=== PATIENT | female | born 1950 | race African-American/Black ===

== ENCOUNTER → 2023-04-10 | Emergency (ER) | payer OTHER ==
[~2023-04-10] MED LIST: DIAZEPAM 2 MG TABLET ONE
--- OUTSIDE RECORDS SUMMARY | 2023-04-10 11:27 | XMS REPORT | Continuity of Care Document ---
Author Name Unknown Address [address] [place] [address] [employer]connect Address [address] [place] [address] Care Team Providers Care Lead Java [email or web address] Developer Name Role Phone Unavailable Unavailable Unavailable
--- NOTE | 2023-04-10 12:39 | RAD REPORT ---
EXAM DESCRIPTION: Brittani Single View04/10/2023 12:14 pm CLINICAL HISTORY: Numbness COMPARISON: 2012 FINDINGS: Calcified granulomas within the lungs. The lungs appear clear of acute infiltrate. The heart is normal size IMPRESSION: No acute abnormalities displayed
--- NOTE | 2023-04-10 12:39 | RAD REPORT ---
EXAM DESCRIPTION: CT - Head Brain Wo Cont - 04/10/2023 12:11 pm CLINICAL HISTORY: Numbness COMPARISON: none TECHNIQUE: Computed axial tomography of the head was obtained. IV contrast was not requested. All CT scans are performed using dose optimization technique as appropriate and may include automated exposure control or mA/KV adjustment according to patient size. FINDINGS: 6.7 x 1.7 centimeter calcification is present along the falx. An intracranial bleed is not seen The ventricles are normal in caliber No significant hypodense areas within the brain visualized No extra-axial fluid collection is noted. Right maxillary sinusitis IMPRESSION: 6.7 centimeter calcification along the falx. This could be idiopathic. Another considera tion is that this represents en plaque meningioma This can be further evaluated with MRI
[2023-04-10 14:03] LABS: Absolute Lymphocytes (CBC) 2.2 K/uL (0.7-4.9); Hematocrit 34.1 % (36.0-45.0); Lymphocytes % 37.7 % (15.3-44.8); MCV 91.1 fL (80-100); MPV 8.3 fL (7.6-11.3); Platelets 268 thou/uL (152-406); RBC Red Blood Cell Count 3.74 M/uL (3.86-4.86)
[2023-04-10 14:06] LABS: Troponin High Sensitivity 7.3 pg/mL (<58.9)
--- NOTE | 2023-04-10 15:47 | RAD REPORT ---
EXAM DESCRIPTION: MRI - Brain Wo Cont - 04/10/2023 3:39 pm CLINICAL HISTORY: Tingling and pain on left side of body COMPARISON: Noncontrast head CT of the same day TECHNIQUE: Multiplanar multisequence MRI of the brain performed without IV contrast. FINDINGS: Dense ossification along the bowel, results in some artifactual signal increase along the falx on the FLAIR sequence. No evidence of acute infarct or other diffusion signal abnormality. No evidence of acute intracranial hemorrhage or abnormal extra-axial fluid collections. Ventricular caliber within normal for age. Midline structures are unremarkable. Scattered subcortical and deep white matter T2/FLAIR hyperintensities, nonspecific, but suggestive of chronic small vessel ischemic changes. No mass effect or midline shift. Major vascular flow voids are preserved. Mastoid air cells are well aerated. Complete opacification right maxillary and right anterior ethmoid al air cells. IMPRESSION: No acute intracranial process. No evidence of ventriculomegaly or mass effect. Complete opacification of the right maxillary and right anterior ethmoidal air cells, suggestive of m iddle meatus obstruction pattern. Please correlate clinically for evidence of acute sinusitis
--- NOTE | 2023-04-10 16:08 | ER ---
Nurse's Notes [facility] Name: Yamile Daugherty Age: 73 yrs Sex: Female : 1950 Arrival Date: 04/10/2023 Time: 11:23 Bed 12 Private MD: Diagnosis: Paresthesia of skin-Right hand/fingertips;Pain in left shoulder;Pain in left knee Presentation: 04/10 11:42 Chief complaint: Tingling in left hand and shoulder, tingling in outer left knee, hb cough, congestion, intermittent headaches, and body aches x 4 days. VAN negative. On amoxicillin for sinus infection. Coronavirus screen: Client presents with at least one sign or symptom that may indicate coronavirus-19. Standard/surgical mask placed on the client. Provider contacted for isolation considerations. Ebola Screen: No symptoms or risks identified at this time. Initial Sepsis Screen: Does the patient meet any 2 criteria? No. Patient's initial sepsis screen is negative. Does the patient have a suspected source of infection? No. Patient's initial sepsis screen is negative. Risk Assessment: Do you want to hurt yourself or someone else? Patient reports no desire to harm self or others. Onset of symptoms was April 07, 2023. 11:42 Method Of Arrival: Ambulatory hb 11:42 Acuity: ALESIA 3 hb Historical: - Allergies: 11:45 No Known Allergies; hb - Home Meds: 11:45 carvedilol 25 mg oral tablet 2 times per day [Active]; irbesartan-hydrochlorothiazide hb 300-12.5 mg oral tablet daily [Active]; amlodipine 10 mg tablet daily [Active]; atorvastatin 20 mg oral tablet daily [Active]; - PMHx: 11:45 Hypertension; Irregular Heartbeat; hb - PSHx: 11:45 Wrist - Left; hb - Immunization history:: Adult Immunizations up to date. - Social history:: Smoking status: Patient denies any tobacco usage or history of. Screenin:58 [facility] ED Fall Risk Assessment (Adult) History of falling in the last 3 months, cp4 including since admission No falls in past 3 months (0 pts) Confusion or Disorientation No (0 pts) Intoxicated or Sedated No (0 pts) Impaired Gait No (0 pts) Mobility Assist Device Used No (0 pt) Altered Elimination No (0 pt) Score/Fall Risk Level 0 - 2 = Low Risk Oriented to surroundings, Maintained a safe environment, Educated pt \T\ family on fall prevention, incl call for assistance when getting out of bed, Assessed \T\ reinforced patient's understanding of fall precautions, Hourly rounding (assess needs \T\ fall precautionary measures) done. Abuse screen: Denies threats or abuse. Nutritional screening: No deficits noted. Tuberculosis screening: No symptoms or risk factors identified. Assessment: 13:58 General: Appears in no apparent distress. Behavior is calm, cooperative, appropriate cp4 for age. Pain: Denies pain. Vital Signs: 11:42 BP 169 / 73; Pulse 71; Resp 16; Temp 97.7; Pulse Ox 100% on R/A; Weight 72.57 kg; hb Height 5 ft. 9 in. ; Pain 6/10; 16:30 BP 132 / 74; Pulse 60; Resp 16; Pulse Ox 100% ; cp4 11:42 Body Mass Index 23.63 (72.57 kg, 175.26 cm) hb 11:42 Pain Scale: Adult hb ED Course: 11:28 Patient arrived in ED. im 11:38 Armand Delaney MD is Attending Physician. kdr 11:45 Triage completed. hb 11:49 Arm band placed on. hb 12:13 CT Head Brain wo Cont In Process Unspecified. EDMS 12:15 XRAY Chest (1 view) In Process Unspecified. EDMS 12:20 Patient taken to lobby, via wheelchair, Patient moved back from radiology. md2 13:04 Caty Donald is Primary Nurse. cp4 13:27 Basic Metabolic Panel Sent. cp4 13:27 CBC with Diff Sent. cp4 13:27 NT PRO-BNP Sent. cp4 13:27 Troponin HS Sent. cp4 13:58 Placed in gown. Bed in low position. Call light in reach. Side rails up X 1. cp4 13:58 No provider procedures requiring assistance completed. Inserted saline lock: 20 gauge cp4 in right antecubital area, using aseptic technique. 15:41 MRI - Brain Wo Cont In Process Unspecified. EDMS 16:30 Provided Education on: paresthesia and musculoskeletal pain. . cp4 16:30 intact, bleeding controlled, No redness/swelling at site. Pressure dressing applied. cp4 Administered Medications: 15:55 Not Given (Patient Refused): diazepam2 mg PO once cp4 Medication: 13:58 VIS not applicable for this client. cp4 Outcome: 16:08 Discharge ordered by . kdr 16:30 Discharged to home ambulatory, cp4 16:30 Condition: stable 16:30 Discharge instructions given to patient, Instructed on discharge instructions, follow up and referral plans. Demonstrated understanding of instructions, follow-up care, 16:32 Patient left the ED. cp4 Signatures: Dispatcher [employer] EDMS Armand Delaney MD MD kdr Coby Iqbal, RN RN Herlinda Arnett md2 Rosemary James Christina cp4 Corrections: (The following items were deleted from the chart) 11:49 11:42 Chief complaint: Tingling in left hand and shoulder, tingling in outer left knee, hb cough, congestion, intermittent headaches, and body aches x 4 days. VAN negative. hb
--- NOTE | 2023-04-10 16:08 | EDPHYS ---
Physician Documentation [facility] Name: Yamile Daugherty Age: 73 yrs Sex: Female : 1950 Arrival Date: 04/10/2023 Time: 11:23 Bed 12 Private MD: ED Physician Armand Delaney HPI: 04/10 20:44 This 73 yrs old Black Female presents to ER via Ambulatory with complaints of Numbness kdr - left side. 20:44 . Patient presents with tingling in her left hand and discomfort and paresthesias in kdr her left shoulder and left lateral knee. She also has generalized bodyaches which have all been going on for about the past 4 days. Patient is currently on amoxicillin for sinus infection. Onset: The symptoms/episode began/occurred gradually, 4 day(s) ago. Severity of symptoms: At their worst the symptoms were mild in the emergency department the symptoms are unchanged. The patient has not experienced similar symptoms in the past. The patient has been recently seen by a physician: the patient's primary care provider. Historical: - Allergies: 11:45 No Known Allergies; hb - Home Meds: 11:45 carvedilol 25 mg oral tablet 2 times per day [Active]; irbesartan-hydrochlorothiazide hb 300-12.5 mg oral tablet daily [Active]; amlodipine 10 mg tablet daily [Active]; atorvastatin 20 mg oral tablet daily [Active]; - PMHx: 11:45 Hypertension; Irregular Heartbeat; hb - PSHx: 11:45 Wrist - Left; hb - Immunization history:: Adult Immunizations up to date. - Social history:: Smoking status: Patient denies any tobacco usage or history of. ROS: 20:44 Constitutional: Negative for fever, chills, and weight loss, Eyes: Negative for injury, kdr pain, redness, and discharge, Neck: Negative for injury, pain, and swelling, Cardiovascular: Negative for chest pain, palpitations, and edema, Respiratory: Negative for shortness of breath, cough, wheezing, and pleuritic chest pain, Abdomen/GI: Negative for abdominal pain, nausea, vomiting, diarrhea, and constipation, Back: Negative for injury and pain, : Negative for injury, bleeding, discharge, and swelling, MS/Extremity: Negative for injury and deformity, Skin: Negative for injury, rash, and discoloration, Psych: Negative for depression, anxiety, suicide ideation, homicidal ideation, and hallucinations, Allergy/Immunology: Negative for hives, rash, and allergies, Endocrine: Negative for neck swelling, polydipsia, polyuria, polyphagia, and marked weight changes, Hematologic/Lymphatic: Negative for swollen nodes, abnormal bleeding, and unusual bruising, 20:44 Neuro: Positive for numbness, tingling, Paresthesia to her left fingertips and left leg around the knee, Exam: 20:44 Constitutional: This is a well developed, well nourished patient who is awake, alert, kdr and in no acute distress. Head/Face: Normocephalic, atraumatic. Eyes: Pupils equal round and reactive to light, extra-ocular motions intact. Lids and lashes normal. Conjunctiva and sclera are non-icteric and not injected. Cornea within normal limits. Periorbital areas with no swelling, redness, or edema. Neck: Trachea midline, no thyromegaly or masses palpated, and no cervical lymphadenopathy. Supple, full range of motion without nuchal rigidity, or vertebral point tenderness. No Meningismus. Chest/axilla: Normal chest wall appearance and motion. Nontender with no deformity. No lesions are appreciated. Cardiovascular: Regular rate and rhythm with a normal S1 and S2. No gallops, murmurs, or rubs. Normal PMI, no JVD. No pulse deficits. Respiratory: Lungs have equal breath sounds bilaterally, clear to auscultation and percussion. No rales, rhonchi or wheezes noted. No increased work of breathing, no retractions or nasal flaring. Abdomen/GI: Soft, non-tender, with normal bowel sounds. No distension or tympany. No guarding or rebound. No evidence of tenderness throughout. Back: No spinal tenderness. No costovertebral tenderness. Full range of motion. Skin: Warm, dry with normal turgor. Normal color with no rashes, no lesions, and no evidence of cellulitis. 20:44 MS/ Extremity: Pulses equal, no cyanosis. Neurovascular intact. Full, normal range of motion. Psych: Awake, alert, with orientation to person, place and time. Behavior, mood, and affect are within normal limits. 20:44 Neuro: Orientation: is normal, Mentation: is normal, Memory: is normal, Cranial nerves: grossly normal, Sensation: no obvious gross deficits, numbness, that is mild, of the left hand, tingling, that is mild, of the left hand, left arm and left leg, Vital Signs: 11:42 BP 169 / 73; Pulse 71; Resp 16; Temp 97.7; Pulse Ox 100% on R/A; Weight 72.57 kg; hb Height 5 ft. 9 in. ; Pain 6/10; 16:30 BP 132 / 74; Pulse 60; Resp 16; Pulse Ox 100% ; cp4 11:42 Body Mass Index 23.63 (72.57 kg, 175.26 cm) hb 11:42 Pain Scale: Adult hb MDM: 16:08 Patient medically screened. kdr 20:44 Data reviewed: vital signs, nurses notes, lab test result(s), radiologic studies. [facility] 04/10 11:51 Order name: Basic Metabolic Panel; Complete Time: 14:43 [facility] 04/10 11:51 Order name: CBC with Diff; Complete Time: 14:43 kdr 04/10 11:51 Order name: NT PRO-BNP; Complete Time: 14:43 kdr 04/10 11:51 Order name: Troponin HS; Complete Time: 14:43 kdr 04/10 11:51 Order name: CT Head Brain wo Cont; Complete Time: 14:43 kdr 04/10 11:51 Order name: XRAY Chest (1 view); Complete Time: 14:43 kdr 04/10 11:51 Order name: MRI - Brain Wo Cont; Complete Time: 15:52 kdr 04/10 11:51 Order name: EKG; Complete Time: 11:51 kdr 04/10 11:51 Order name: Cardiac monitoring; Complete Time: 13:27 kdr 04/10 11:51 Order name: EKG - Nurse/Tech; Complete Time: 13:36 kdr 04/10 11:51 Order name: IV Saline Lock; Complete Time: 13:27 kdr 04/10 11:51 Order name: Labs collected and sent; Complete Time: 13:27 kdr 04/10 11:51 Order name: O2 Per Protocol; Complete Time: 13:27 kdr 04/10 11:51 Order name: O2 Sat Monitoring; Complete Time: 13:27 kdr Administered Medications: 15:55 Not Given (Patient Refused): diazepam2 mg PO once cp4 Disposition Summary: 04/10/23 16:08 Discharge Ordered Notes: Location: Home kdr Problem: new kdr Symptoms: are unchanged kdr Condition: Stable kdr Diagnosis - Paresthesia of skin - Right hand/fingertips kdr - Pain in left shoulder kdr - Pain in left knee kdr Followup: kdr - With: Private Physician - When: 2 - 3 days - Reason: If symptoms return, Further diagnostic work-up, Recheck today's complaints, Continuance of care, Re-evaluation by your physician Discharge Instructions: - Discharge Summary Sheet kdr - Musculoskeletal Pain kdr - Shoulder Pain, [id number] kdr - Paresthesia, [id number] kdr Forms: - Medication Reconciliation Form kdr - Thank You Letter kdr - Patient Portal Instructions kdr - Leadership Thank You Letter kdr Signatures: Dispatcher [employer] Armand Comer MD MD kdr Coby Iqbal, GLENROY RN Caty Reynolds cp4
[2023-04-10 18:21] VITALS: BP 132/74; TEMP 97.7; O2SAT 100
== END ==
LOC: ER 11:23
DX: R20.2 Paresthesia of skin (principal); M25.512 Pain in left shoulder; M25.562 Pain in left knee; I10 Essential (primary) hypertension
CPT/HCPCS: 36415; 70450; 70551; 71045; 80048; 83880; 84484; 85025; 99284

== ENCOUNTER 2023-07-24 20:21 | Observation (INO) | payer BC, OTHER ==
--- OUTSIDE RECORDS SUMMARY | 2023-07-24 20:26 | XMS REPORT | Continuity of Care Document ---
Author Name Unknown Address [address] [facility] [address] [place] [address] [facility] thconnect Address [address] 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 Role Phone Sheng Gil Primary Care Physician [phone] Venus TIM, Gracia Choe Attending Clinician Unavail able LUCINA PINEDA Attending Clinician Unavailable Shari Levy DO Attending Clinician [phone] Mark Dixon MD Attending Clinician [phone] Lucina Pineda MD Attending Clinician [phone] AMBROSIO BOLDEN Attending Clinician Unavailable Matt TIM, [place] Attending Clinician Unavailable Ambrosio Bolden MD Attending Clinician [phone] Jade Larson Attending Clinician [phone] Kaushik Rosen MD Attending Clinician [phone] CHRIS ACOSTA Attending Clinician Unavailable Chris Acosta MD Attending Clinician [phone] RAISSA OLMOS Attending Clinician Unavailable Raissa Olmos MD Attending Clinician [phone] IGNACIO ELDRIDGE Attending Clinician UnavailIgnacio Estes MD Attending Clinician [phone] MARIN TERRY Attending Clinician Unavailable Marin Terry DO Attending Clinician [phone] KOBE TOUSSAINT Attending Clinician Unavailab Kobe Lovell MD Attending Clinician [phone] YING CHANG Attending Clinician Unavailable Vaccine, [facility] Attending Clinician Unavailable Yony Torres DO Attending Clinician YONY TORRES Attending Clinician Unavail able GERALD MCCULLOUGH Attending Clinician Unavailable UNKNOWN, ATTENDING Attending Clinician Unavailab NICK Manrique Attending Clinician Unavailabl e Vaccine, Ang [facility] Attending Clinician Unavailab tessa Plascencia ENGINEER CHIEF Alejandro Attending Clinician [phone] ALEJANDRO PLASCENCIA Attending Clinician Unavailable Doctor Unassigned, [place] Attending Clinician U SHARI Weiss Attending Clinician Unavailab ELOISA Santos Attending Clinician Unavailable JULIAN BARRETT Attending Clinician Unavailable LUCINA PINEDA Admitting Clinician Unavailable Lucina Pineda MD Admitting Clinician [phone] KAUSHIK ROSEN Admitting Clinician Unavailable CRHIS ACOSTA Admitting Clinician Unavailable MORIGNACIO MANSFIELD Admitting Clinician Unavaila SHARI Harvey Admitting Clinician Unavailab JULIAN Mai Admitting Clinician Unavailable Payers Payer Name Policy Type Policy Number Effective Date Expirati on Date Source [facility] [id number] 2021 00:00:00 [employer] IN[employer] [id number] 2018 00:00:00 2020 00:00:00 Problems Condition Name Condition Details Condition Category Status Onset Date Resolution Date Last Treatment Date Treating Clinician Comments Source Other pulmonary embolism without acute cor pulmonale Other pulmonary embolism without acute cor pulmonale Disease Active 07-19 00:00: 00 [facility] Chest pain, unspecifie d type Chest pain, unspecifie d type Disease Active 07-13 00:00: 00 [facility] Coronary artery calcificat ion Coronary artery calcificat ion Disease Active 07-13 00:00: 00 [facility] Primary hypertensi on Primary hypertensi on Disease Active 07-13 00:00: 00 [facility] Other hyperlipid emia Other hyperlipid emia Disease Active 07-13 00:00: 00 [facility] No known active problems No known active problems Disease [facility] Allergies, Adverse Reactions, Alerts Allergy Name Allergy Type Status Severity Reaction(s) Onset Date Inactive Date Treating Clinician Comments Source NO KNOWN ALLERGIE S Drug Class Active [facility] Social History Social Habit Start Date Stop Date Quantity Comments Source Gender identity [facility] of Social function 2023-07-20 00:00:00 2023-07-20 00:00:00 [facility] Alcohol intake 2023-07-20 00:00:00 2023-07-20 00:00:00 Ex-drinker (finding) [facility] Tobacco use and exposure 2023-07-14 00:00:00 2023-07-14 00:00:00 Smokeless tobacco non-user [facility] Exposure to SARS-CoV-2 (event) 2021-12-25 00:00:00 2022-01-04 09:54:00 Not sure [facility] Sex Assigned At 1950 00:00:00 1950 00:00:00 [facility] Smoking Status Start Date Stop Date Source Never smoked tobacco [facility] Medications Ordered Medication Name Filled Medication Name Start Date Stop Date Current Medication? Ordering Clinician Indication Dosage Frequency Signature (SIG) Comments Components Source apixaban (ELIQUIS) tablet 5 mg 07-23 01:00: 00 Yes 1291 5mg 5 mg, Oral, BID, First dose on Evelyn 07/23/23 at 1999, Until Discontinu ed, Routine
Indicatio ns: DVT/PE [facility] apixaban 5 mg tablet 07-22 00:00: 00 08-13 04:59 :00 Yes 1291 5mg Take 1 tablet by mouth in the morning and 1 tablet in the evening. Do all this for 21 days. Indication s: a clot in the lung [facility] KCL (KLOR-CON M20) tablet 20 mEq 07-21 14:00: 00 Yes 20meq 20 mEq, Oral, DAILY, First dose on Thu07/22/23 at 0900, Until Discontinu ed, [facility] ([facility] M20[facility] tablet 40 mEq 07-21 02:30: 00 07-21 02:02 :00 No 40meq 40 mEq, Oral, ONCE, 1 dose, On Thu07/21/23 at 2130, Routine [facility] nitroglycer in 0.3 mg sublingual tablet 07-21 00:00: [id number] 1 tablet under the tongue every 5 (five) minutes as needed for Chest pain (CP greater than 5 minutes up to 3 doses then call 911). [facility] hydrOXYzine 25 mg tablet 07-21 00:00: 00 07-27 04:59 :00 Yes [id number] 25mg Take 1 tablet by mouth every 8 (eight) hours as needed for Itching for up to 5 days. [facility] levoFLOXaci n 500 mg tablet 07-21 00:00: 00 07-24 04:59 :00 Yes [id number] 500mg Take 1 tablet by mouth every 24 (twenty-fo ur) hours for 2 days. [facility] hydroCHLORO thiazide (ESIDRIX) tablet 12.5 mg 07-20 14:00: 00 Yes 12.5mg 12.5 mg, Oral, DAILY, First dose on Thu07/21/23 at 0900, Until Discontinu ed, Routine [facility] losartan (COZAAR) tablet 100 mg 07-20 14:00: 00 Yes 100mg 100 mg, Oral, DAILY, First dose on Thu07/21/23 at 0900, Until Discontinu ed, Routine [facility] amLODIPine (NORVASC) tablet 10 mg 07-20 14:00: 00 Yes 10mg 10 mg, Oral, DAILY, First dose on Thu07/21/23 at 0900, Until Discontinu ed, [facility] atorvast[facility] (LIPITOR) tablet 20 mg 07-20 02:00: 00 Yes 20mg 20 mg, Oral, QHS, First dose on Thu07/20/23 at 2100, Until Discontinu ed, Routine [facility] apixaban (ELIQUIS) tablet 10 mg 07-20 01:00: 00 07-22 13:04 :00 No 1291 10mg 10 mg, Oral, BID, 6 doses, First dose on Thu07/20/23 at 2000, Last dose on Thu07/23/23 at 0800, Routine
Indicatio ns: DVT/PE [facility] carvediloL (COREG) tablet 6.25 mg 07-19 22:00: 00 Yes 6.25mg 6.25 mg, Oral, BID MEALS, First dose on Thu07/20/23 at 1700, Until Discontinu ed, Routine [facility] cefTRIAXone (ROCEPHIN) 1,000 mg in NaCl 0.9% (NS) 100 mL MINI-BAG 07-19 22:00: 00 07-26 21:59 :00 Yes 1000mg 1,000 mg, IV Piggyback, Q24H ABX, 7 doses, First dose on Thu07/20/23 at 1700, Last dose on Thu07/26/23 at 1700, Administer over 30 Minutes, 100 mL
Reas on for Anti-Infec tive: Documented Infection< br>Documen jaclyn Infection Site: Respirator y
Durat ion of Therapy: 7 days [facility] azithromyci n (ZITHROMAX) tablet 500 mg 07-19 15:45: 00 07-21 13:35 :00 No 500mg 500 mg, Oral, DAILY, 3 doses, First dose on Thu07/20/23 at 1045, Last dose on Thu07/22/23 at 0900, Routine
Reason for Anti-Infec tive: Documented Infection< br>Documen jaclyn Infection Site: Respirator y
Durat ion of Therapy: Other (see Comments) [facility] ondansetron (ZOFRAN (PF)) injection 4 mg 07-19 15:33: 32 Yes 4mg 4 mg, Slow IV Push, Q6HPRN, Starting on Thu07/20/23 at 1033, Until Discontinu ed, Routine, Nausea and Vomiting (N/V) [facility] acetaminoph en (TYLENOL) tablet 650 mg 07-19 15:33: 22 Yes 650mg 650 mg, Oral, Q6HPRN, Starting on Thu07/20/23 at 1033, Until Discontinu ed, Routine, Pain (scale 1-3), Temp > 38 C [facility] vancomycin (VANCOCIN) 1,000 mg in NaCl 0.9% (NS) 250 mL VIAL-MATE IV piggyback 07-19 14:15: 00 07-19 15:18 :00 No 1000mg 1,000 mg, IV Piggyback, ONCE, 1 dose, On Thu07/20/23 at 0915, Administer over 60 Minutes, 250 mL
Reas on for Anti-Infec tive: Empiric Therapy for Suspected Infection< br>Empiric Therapy Site: Respirator y
Durat ion of therapy: Once (ED) [facility] aspirin chewable tablet 81 mg 07-19 14:00: 00 07-21 00:00 :00 Yes 81mg 81 mg, Oral, DAILY, First dose on Thu07/20/23 at 0900, Until Discontinu ed, Routine [facility] piperacilli n-tazobacta m (ZOSYN) 3.375 g in NaCl 0.9% (NS) 100 mL MINI-BAG 07-19 13:30: 00 07-19 14:21 :00 No 3.375g 3.375 g, IV Piggyback, ONCE, 1 dose, On Thu07/20/23 at 0830, Administer over 30 Minutes, 100 mL
Reas on for Anti-Infec tive: Empiric Therapy for Suspected Infection< br>Empiric Therapy Site: Respirator y
Durat ion of therapy: Once (ED) [facility] iopamidol (ISOVUE 370-500 mL) injection 80 mL 07-19 13:15: 00 07-19 13:15 :00 No [id number] 80mL 80 mL, Intravenou s, ONCE, 1 dose, On Thu07/20/23 at 0815, Routine [facility] nitroglycer in (NITROL) 2 % ointment 0.5 Inch 07-19 13:00: 00 07-19 12:59 :00 No .5[in_u s] 0.5 Inch, Transderma l (Apply To Skin), ONCE, 1 dose, On Thu07/20/23 at 0800, JAYJAY [facility] NaCl 0.9% (NS) bolus infusion 1,000 mL 07-19 13:00: 00 07-19 13:02 :00 No 1000mL at 999 mL/hr, 1,000 mL, IV Infusion, ONCE, 1 dose, On Thu07/20/23 at 0800, STAT [facility] irbesartan- hydrochloro thiazide 300-12.5 mg per tablet 07-19 10:35: 40 Yes 1{tbl} Take 1 tablet by mouth in the morning. [facility] atorvastati n 20 mg tablet 07-19 10:35: 40 Yes 20mg Take 1 tablet by mouth at bedtime. [facility] apixaban (ELIQUIS) tablet 10 mg 07-15 01:00: 00 07-22 00:59 :00 Yes 10mg [Order 1 Start] Name: apixaban (ELIQUIS) tablet 10 mg Signed Summary: 10 mg, Oral, BID, 14 doses, First dose on Thu07/15/23 at 2000, Last dose on Thu07/22/23 at 0800, Routine
Indicatio ns: DVT/PE [Order 1 End] [Order 2 Start] Name: apixaban (ELIQUIS) tablet 5 mg Signed Summary: 5 mg, Oral, BID, First dose on Evelyn 07/23/23 at 0800, Until Discontinu ed, Routine
Indicatio ns: DVT/PE [Order 2 End] [facility] apixaban 5 mg tablet 07-15 00:00: 00 07-21 00:00 :00 No 1291 10mg Take 2 tablets by mouth in the morning and 2 tablets in the evening. Do all this for 7 days. Indication s: a clot in the lung [facility] irbesartan- hydrochloro thiazide 300-12.5 mg per tablet 07-14 21:09: 14 Yes 1{tbl} Take 1 tablet by mouth in the morning. [facility] atorvastati n 20 mg tablet 07-14 21:09: 14 Yes 20mg Take 1 tablet by mouth at bedtime. [facility] amoxicillin 500 mg capsule 07-14 21:09: 12 07-14 00:00 :00 No 500mg Take 1 capsule by mouth in the morning and 1 capsule at noon and 1 capsule in the evening. [facility] aspirin 325 mg tablet 07-14 13:57: 46 07-14 00:00 :00 No 325mg Take 1 tablet by mouth in the morning. [facility] atorvastati n (LIPITOR) tablet 20 mg 07-14 02:00: 00 Yes 20mg 20 mg, Oral, QHS, First dose on Thu07/14/23 at 2100, Until Discontinu ed, Routine [facility] aspirin EC tablet 81 mg 07-14 00:30: 00 Yes 81mg 81 mg, Oral, DAILY, First dose on Thu07/14/23 at 1930, Until Discontinu ed, Routine [facility] iopamidol (ISOVUE 370-500 mL) injection 80 mL 07-13 21:15: 00 07-13 21:15 :00 No [id number] 80mL 80 mL, Intravenou s, ONCE, 1 dose, On Thu07/14/23 at 1615, Routine [facility] magnesium sulfate in water 2 gram/50 mL (4 %) infusion 2 g 07-13 17:30: 00 07-13 18:34 :00 No 2g 2 g, IV Piggyback, Administer over 60 Minutes, ONCE, 1 dose, On Thu07/14/23 at 1230, Routine [facility] amLODIPine (NORVASC) tablet 10 mg 07-13 14:00: 00 Yes 10mg 10 mg, Oral, DAILY, First dose on Thu07/14/23 at 0900, Until Discontinu ed, Routine [facility] KCL (KLOR-CON M20) tablet 40 mEq 07-13 13:15: 00 07-13 13:48 :00 No 40meq 40 mEq, Oral, ONCE, 1 dose, On Thu07/14/23 at 0815, Routine [facility] hydrALAZINE (APRESOLINE ) tablet 10 mg 07-13 13:00: 00 Yes 10mg 10 mg, Oral, BID, First dose on Thu07/14/23 at 0800, Until Discontinu ed, Routine [facility] carvediloL (COREG) tablet 25 mg 07-13 13:00: 00 Yes 25mg 25 mg, Oral, BID, First dose on Thu07/14/23 at 0800, Until Discontinu ed, Routine [facility] nitroglycer in (NITROSTAT) sublingual tablet 0.4 mg 07-13 05:25: 23 Yes .4mg 0.4 mg, Sublingual , Q5MIN PRN, Starting on Thu07/14/23 at 0025, Until Discontinu ed, Routine, Chest pain [facility] traMADoL (ULTRAM) tablet 50 mg 07-13 05:25: 06 07-15 05:24 :06 Yes 50mg 50 mg, Oral, Q8HPRN, Starting on Thu07/14/23 at 0025, Until Evelyn 07/16/23 at 0024, Routine, Pain (scale 4-6) [facility] acetaminoph en (TYLENOL) tablet 650 mg 07-13 05:25: 03 Yes 650mg 650 mg, Oral, Q6HPRN, Starting on Thu07/14/23 at 0025, Until Discontinu ed, Routine, Pain (scale 1-3) [facility] montelukast 10 mg tablet 07-13 01:23: 29 07-13 00:00 :00 No 10mg Take 10 mg by mouth. [facility] loratadine (CLARITIN ORAL) 07-13 01:23: 14 07-13 00:00 :00 No Take by mouth. [facility] ergocalcife rol, vitamin D2, (VITAMIN D ORAL) 07-13 01:22: 19 07-13 00:00 :00 No Take by mouth. [facility] sodium chloride (NS) injection 5 mL 07-13 00:58: 00 Yes 5mL 5 mL, Intravenou s, PRN, Starting on Thu07/13/23 at 1958, Until Discontinu ed, Routine, IV line flushing [facility] NaCl 0.9% (NS) bolus infusion 1,000 mL 06-28 02:00: 00 06-28 01:59 :00 No 1000mL at 999 mL/hr, 1,000 mL, IV Infusion, ONCE, 1 dose, On Thu06/28/23 at 2100, STAT [facility] enalaprilat (VASOTEC I.V.) injection 1.25 mg 06-17 03:00: 00 06-17 03:07 :00 No 1.25mg 1.25 mg, Slow IV Push, ONCE, 1 dose, On Thu06/16/23 at 2100, STAT [facility] hydrALAZINE 10 mg tablet 06-16 00:00: 00 Yes [id number] 10mg Take 1 tablet by mouth in the morning and 1 tablet in the evening. [facility] naproxen sodium (ANAPROX DS) 550 mg tablet 2022-04 00:00: 00 07-13 00:00 :00 No [id number] 550mg Take 1 tablet by mouth in the morning and 1 tablet in the evening. Take with meals. [facility] chlorphenir amine 4 mg tablet 2022-04 00:00: 00 07-13 00:00 :00 No [id number] 4mg Take 1 tablet by mouth every 6 (six) hours as needed for Allergies or Runny nose. [facility] benzonatate 100 mg capsule 2022-04 00:00: 00 07-13 00:00 :00 No [id number] 100mg Take 1 capsule by mouth 3 (three) times daily as needed for Cough. [facility] alum-mag hydroxide-s imeth (MAALOX PLUS / MAG-AL PLUS) 200-200-20 mg/5 mL suspension 30 mL 11-29 17:30: 00 11-29 17:34 :00 No 30mL 30 mL, Oral, ONCE, 1 dose, On 11/29/22 at 1230, JAYJAY [facility] sucralfate (CARAFATE) 100 mg/mL suspension 1,000 mg 11-29 17:21: 00 11-29 17:34 :00 No 1g 1,000 mg (1 g), Oral, ONCE, 1 dose, On 11/29/22 at 1230, JAYJAY [facility] loratadine (CLARITIN ORAL) 11-29 13:19: 35 Yes Take by mouth. [facility] atorvastati n 20 mg tablet 10-08 02:46: 00 Yes 20mg Take 20 mg by mouth at bedtime. [facility] montelukast 10 mg tablet 10-08 02:46: 00 Yes 10mg Take 10 mg by mouth. [facility] magnesium sulfate in water 2 gram/50 mL (4 %) infusion 2 g 10-06 19:45: 00 10-06 19:18 :00 No 2g 2 g, IV Piggyback, Administer over 60 Minutes, ONCE, 1 dose, On 10/06/21 at 1445, Routine [facility] atorvastati n 20 mg tablet 10-06 12:37: 45 Yes 20mg Take 20 mg by mouth at bedtime. [facility] montelukast 10 mg tablet 10-06 12:37: 45 Yes 10mg Take 10 mg by mouth. [facility] aspirin 325 mg tablet 2018-04 09:49: 26 Yes 325mg Take 325 mg by mouth daily. [facility] ergocalcife rol, vitamin D2, (VITAMIN D ORAL) 2018-04 09:49: 26 Yes Take by mouth. [facility] irbesartan- hydrochloro thiazide 300-12.5 mg per tablet 2018-04 09:49: 26 Yes 1{tbl} Take 1 tablet by mouth daily. [facility] DULoxetine 60 mg capsule 2018-04 00:00: 00 07-13 00:00 :00 No TAKE 1 CAPSULE BY MOUTH EVERY DAY WITH FOOD [facility] carvedilol 25 mg tablet 2018-04 00:00: 00 Yes 25mg Take 1 tablet by mouth in the morning and 1 tablet in the evening. [facility] amLODIPine 10 mg tablet 2018-04 00:00: 00 Yes 10mg Take 1 tablet by mouth in the morning. [facility] Immunizations Ordered Immunization Name Filled Immunization Name Date Status Comments Source SARS-COV-2 COVID-19 PFIZER HAILE-SUCROSE VACCINE ([facility] TOP) 2022-03-27 00:00:00 Completed [facility] SARS-COV-2 COVID-19 PFIZER HAILE-SUCROSE VACCINE (BRONSON TOP) 2022-03-27 00:00:00 Completed [facility] SARS-COV-2 COVID-19 PFIZER HAILE-SUCROSE VACCINE (BRONSON TOP) 2022-01-04 00:00:00 Completed [facility] SARS-COV-2 COVID-19 PFIZER HAILE-SUCROSE VACCINE (BRONSON TOP) 2022-01-04 00:00:00 Completed [facility] SARS-COV-2 COVID-19 PFIZER HAILE-SUCROSE VACCINE (BRONSON TOP) 2022-01-04 00:00:00 Completed [facility] SARS-COV-2 COVID-19 PFIZER HAILE-SUCROSE VACCINE (BRONSON TOP) Unknown Completed [facility] SARS-COV-2 COVID-19 PFIZER HAILE-SUCROSE VACCINE (BRONSON TOP) Unknown Completed [facility] SARS-COV-2 COVID-19 PFIZER HAILE-SUCROSE VACCINE (BRONSON TOP) Unknown Completed [facility] SARS-COV-2 COVID-19 PFIZER HAILE-SUCROSE VACCINE (BRONSON TOP) Unknown Completed [facility] SARS-COV-2 COVID-19 PFIZER HAILE-SUCROSE VACCINE (BRONSON TOP) Unknown Completed [facility] SARS-COV-2 COVID-19 PFIZER HAILE-SUCROSE VACCINE (BRONSON TOP) Unknown Completed [facility] SARS-COV-2 COVID-19 PFIZER HAILE-SUCROSE VACCINE (BRONSON TOP) Unknown Completed [facility] SARS-COV-2 COVID-19 PFIZER HAILE-SUCROSE VACCINE (BRONSON TOP) Unknown Completed [facility] SARS-COV-2 COVID-19 PFIZER HAILE-SUCROSE VACCINE (BRONSON TOP) Unknown Completed [facility] SARS-COV-2 COVID-19 PFIZER HAILE-SUCROSE VACCINE (BRONSON TOP) Unknown Completed [facility] SARS-COV-2 COVID-19 PFIZER HAILE-SUCROSE VACCINE (BRONSON TOP) Unknown Completed [facility] SARS-COV-2 COVID-19 PFIZER HAILE-SUCROSE VACCINE (BRONSON TOP) Unknown Completed [facility] SARS-COV-2 COVID-19 PFIZER HAILE-SUCROSE VACCINE ([place] TOP) Unknown Completed [facility] SARS-COV-2 COVID-19 PFIZER HAILE-SUCROSE VACCINE (BRONSON TOP) Unknown Completed [facility] SARS-COV-2 COVID-19 PFIZER HAILE-SUCROSE VACCINE (BRONSON TOP) Unknown Completed [facility] SARS-COV-2 COVID-19 PFIZER HAILE-SUCROSE VACCINE (BRONSON TOP) Unknown Completed [facility] SARS-COV-2 COVID-19 PFIZER HAILE-SUCROSE VACCINE (BRONSON TOP) Unknown Completed [facility] SARS-COV-2 COVID-19 PFIZER HAILE-SUCROSE VACCINE (BRONSON TOP) Unknown Completed [facility] SARS-COV-2 COVID-19 PFIZER HAILE-SUCROSE VACCINE (BRONSON TOP) Unknown Completed [facility] SARS-COV-2 COVID-19 PFIZER HAILE-SUCROSE VACCINE (BRONSON TOP) Unknown Completed [facility] Vital Signs Vital Name Observation Time Observation Value Comments S caty Systolic blood pressure 2023-07-23 16:08:00 130 mm[Hg] [facility] Diastolic blood pressure 2023-07-23 16:08:00 68 mm[Hg] [facility] Heart rate 2023-07-23 16:08:00 68 /min [facility] Body temperature 2023-07-23 16:08:00 36.11 Martha [facility] Respiratory rate 2023-07-23 16:08:00 18 /min [facility] Oxygen saturation in Arterial blood by Pulse oximetry 2023-07-23 16:08:00 98 /min [facility] Body weight 2023-07-23 08:16:00 74.481 kg [facility] BMI 2023-07-23 08:16:00 24.25 kg/m2 [facility] Body height 2023-07-20 15:00:00 175.3 cm [facility] Respiratory rate 2023-07-16 00:43:00 18 /min [facility] Oxygen saturation in Arterial blood by Pulse oximetry 2023-07-16 00:43:00 97 /min [facility] Systolic blood pressure 2023-07-16 00:29:00 136 mm[Hg] [facility] Diastolic blood pressure 2023-07-16 00:29:00 78 mm[Hg] [facility] Heart rate 2023-07-16 00:29:00 73 /min [facility] Body temperature 2023-07-16 00:29:00 36.44 Martha [facility] Body weight 2023-07-15 09:00:00 74.481 kg [facility] BMI 2023-07-15 09:00:00 24.25 kg/m2 [facility] Body height 2023-07-14 00:52:00 175.3 cm [facility] Systolic blood pressure 2023-06-29 01:58:00 152 mm[Hg] [facility] hospital Diastolic blood pressure 2023-06-29 01:58:00 73 mm[Hg] [facility] hospital Heart rate 2023-06-29 01:58:00 64 /min [facility] Body temperature 2023-06-29 01:58:00 36.56 Martha [facility] Respiratory rate 2023-06-29 01:58:00 13 /min [facility] Oxygen saturation in Arterial blood by Pulse oximetry 2023-06-29 01:58:00 100 /min [facility] Body height 2023-06-28 22:00:00 175.3 cm [facility] Body weight 2023-06-28 22:00:00 77.111 kg [facility] BMI 2023-06-28 22:00:00 25.10 kg/m2 [facility] Systolic blood pressure 2023-06-17 04:00:00 132 mm[Hg] [facility] hospital Diastolic blood pressure 2023-06-17 04:00:00 68 mm[Hg] [facility] Heart rate 2023-06-17 04:00:00 62 /min [facility] Oxygen saturation in Arterial blood by Pulse oximetry 2023-06-17 04:00:00 98 /min [facility] Respiratory rate 2023-06-17 03:01:00 18 /min [facility] Body temperature 2023-06-17 02:43:00 36.94 Martha [facility] Body height 2023-06-17 02:43:00 175.3 cm [facility] Body weight 2023-06-17 02:43:00 77.111 kg [facility] BMI 2023-06-17 02:43:00 25.10 kg/m2 [facility] Systolic blood pressure 2023-04-04 22:11:00 133 mm[Hg] [facility] hospital Diastolic blood pressure 2023-04-04 22:11:00 81 mm[Hg] [facility] hospital Heart rate 2023-04-04 22:11:00 72 /min [facility] Body temperature 2023-04-04 22:11:00 37 Martha [facility] Respiratory rate 2023-04-04 22:11:00 14 /min [facility] Body height 2023-04-04 22:11:00 175.3 cm [facility] Body weight 2023-04-04 22:11:00 72.576 kg [facility] BMI 2023-04-04 22:11:00 23.63 kg/m2 [facility] Oxygen saturation in Arterial blood by Pulse oximetry 2023-04-04 22:11:00 100 /min [facility] Systolic blood pressure 2023-03-02 18:56:29 163 mm[Hg] [facility] hospital Diastolic blood pressure 2023-03-02 18:56:29 65 mm[Hg] [facility] acute hospital Heart rate 2023-03-02 18:56:29 60 /min [facility] Body temperature 2023-03-02 18:56:29 37 Martha [facility] Respiratory rate 2023-03-02 18:56:29 18 /min [facility] Oxygen saturation in Arterial blood by Pulse oximetry 2023-03-02 18:56:29 100 /min [facility] Body height 2023-03-02 17:00:00 174 cm [facility] Body weight 2023-03-02 17:00:00 77.111 kg [facility] BMI 2023-03-02 17:00:00 25.47 kg/m2 [facility] Systolic blood pressure 2022-11-29 16:56:00 141 mm[Hg] [facility] Diastolic blood pressure 2022-11-29 16:56:00 81 mm[Hg] General acute hospital Heart rate 2022-11-29 16:56:00 62 /min [facility] Body temperature 2022-11-29 16:56:00 37.33 Martha [facility] Respiratory rate 2022-11-29 16:56:00 20 /min [facility] Body height 2022-11-29 16:56:00 175.3 cm [facility] Body weight 2022-11-29 16:56:00 77.111 kg [facility] BMI 2022-11-29 16:56:00 25.10 kg/m2 [facility] Oxygen saturation in Arterial blood by Pulse oximetry 2022-11-29 16:56:00 99 /min General acute hospital Heart rate 2021-10-06 19:45:00 57 /min [facility] Oxygen saturation in Arterial blood by Pulse oximetry 2021-10-06 19:45:00 99 /min [facility] acute hospital Respiratory rate 2021-10-06 19:40:00 14 /min [facility] Systolic blood pressure 2021-10-06 19:30:00 137 mm[Hg] General acute hospital Diastolic blood pressure 2021-10-06 19:30:00 68 mm[Hg] General acute hospital Body temperature 2021-10-06 17:32:00 37.11 Martha [facility] Body height 2021-10-06 17:32:00 175.3 cm [facility] Body weight 2021-10-06 17:32:00 97.523 kg [facility] BMI 2021-10-06 17:32:00 31.75 kg/m2 [facility] Procedures Procedure Date / Time Performed Performing Clinician Source TROPONIN I 2023-07-23 11:02:00 Francisco Hyman [facility] TROPONIN I 2023-07-23 04:46:00 Francisco Hyman [facility] TROPONIN I 2023-07-22 23:56:00 Francisco Hyman [facility] HB ECG ROUTINE & RHYTHM STRIP 2023-07-22 23:52:45 Francisco Hyman [facility] MAGNESIUM 2023-07-22 09:25:00 Lucina Pineda [facility] BASIC METABOLIC PANEL (NA, K, CL, CO2, GLUCOSE, BUN, CREATININE, CA) 2023-07-22 09:25:00 Lucina Pineda [facility] CBC WITH DIFF 2023-07-22 09:25:00 Romi Pradhan [facility] BASIC METABOLIC PANEL (NA, K, CL, CO2, GLUCOSE, BUN, CREATININE, CA) 2023-07-21 09:38:00 [place], [facility] CBC WITHOUT DIFF 2023-07-21 09:38:00 Lucina Pineda [facility] TROPONIN I 2023-07-20 23:42:00 Lucina Pineda [facility] TROPONIN I 2023-07-20 18:07:00 Lucina Pineda [facility] BLOOD CULTURE SCREEN 2023-07-20 13:51:00 Alexandrea Dixon am [facility] CT CHEST PULMONARY ANGIOGRAM 2023-07-20 12:27:00 Shari Levy [facility] MAGNESIUM 2023-07-20 11:53:00 Shari Levy [facility] TROPONIN I 2023-07-20 11:53:00 Shari Levy [facility] COMP. METABOLIC PANEL ([id number]) 2023-07-20 11:53:00 Shari Levy [facility] CBC WITH DIFF 2023-07-20 11:53:00 Shari Levy U [facility] N-TERMINAL PRO-BNP 2023-07-20 11:53:00 Werner Levy [facility] HB ECG ROUTINE & RHYTHM STRIP 2023-07-20 11:49:25 Shari Levy [facility] MAGNESIUM 2023-07-15 09:50:00 Miriam [facility] BASIC METABOLIC PANEL (NA, K, CL, CO2, GLUCOSE, BUN, CREATININE, CA) 2023-07-15 09:50:00 Lucina Pineda [facility] MAGNESIUM 2023-07-14 22:42:00 Miriam [facility] TROPONIN I 2023-07-14 22:42:00 Miriam [facility] BASIC METABOLIC PANEL (NA, K, CL, CO2, GLUCOSE, BUN, CREATININE, CA) 2023-07-14 22:42:00 [facility] 2023-07-14 20:27:00 Kaushik Rosen [facility] TRANSTHORACIC ECHO (TTE) COMPLETE 2023-07-14 19:18[facility]-14 15:20:00 Miriam [facility] TROPONIN I 2023-07-14 15:20:00 Miriam [facility] BASIC METABOLIC PANEL (NA, K, CL, CO2, GLUCOSE, BUN, CREATININE, CA) 2023-07-14 15:20:[address] [facility] LIPID PANEL ([id number])(TOTAL CHOLESTEROL, TRIGLYCERIDES, HDL) 2023-07-14 15:20:[address] [facility] XR CHEST 1 VW 2023-07-14 02:00:59 John [facility] LIPASE 2023-07-14 01:02:00 John [facility] TROPONIN I 2023-07-14 01:02:00 John [facility] COMP. METABOLIC PANEL ([id number]) 2023-07-14 01:02:00 [facility] CBC WITH DIFF 2023-07-14 01:02:00 John [facility] GLYCOSYLATED HEMOGLOBIN (A1C) 2023-07-14 01:02:[address] [facility] HB ECG ROUTINE & RHYTHM STRIP 2023-07-14 00:54:35 [facility] NOTICE OF PRIVACY PRACTICES 2023-07-14 00:45:55 Doctor Unassigned, [place] [facility] CONSENT/REFUSAL FOR DIAGNOSIS AND TREATMENT 2023-07-14 00:44:52 Doctor Unassigned, [place] [facility] TROPONIN I 2023-06-28 23:15:00 [facility] T4 2023-06-28 23:15:00 [facility] N-TERMINAL PRO-BNP 2023-06-28 23:15:00 Chris Acosta [facility] XR CHEST 1 VW 2023-06-28 23:06:49 Chris Acosta [facility] THYROID STIMULATING HORMONE 2023-06-28 22:52:00 Chris Acosta [facility] COMP. METABOLIC PANEL ([id number]) 2023-06-28 22:52:00 Chris Acosta [facility] CBC WITH DIFF 2023-06-28 22:52:00 Chris Acosta [facility] RAPID INFLUENZA A/B 2023-06-28 22:52:00 Jesus cAosta [facility] COVID-19 (ID NOW RAPID TESTING) 2023-06-28 22:52:00 Chris Acosta [facility] ASSIGNMENT OF BENEFITS 2023-06-28 22:25:10 Docto r Unassigned, [place] [facility] CONSENT/REFUSAL FOR DIAGNOSIS AND TREATMENT 2023-06-28 21:53:10 Doctor Unassigned, [place] [facility] TROPONIN I 2023-06-17 03:03:00 Raissa Olmos [facility] BASIC METABOLIC PANEL (NA, K, CL, CO2, GLUCOSE, BUN, CREATININE, CA) 2023-06-17 03:03:00 Raissa Olmos [facility] CBC WITH DIFF 2023-06-17 03:03:00 Raissa Olmos [facility] NOTICE OF PRIVACY PRACTICES 2023-06-17 02:35:27 Doctor Unassigned, [place] [facility] CONSENT/REFUSAL FOR DIAGNOSIS AND TREATMENT 2023-06-17 02:34:38 Doctor Unassigned, [place] [facility] XR CHEST 2 VW 2023-04-04 23:04:00 Ignacio Eldridge [facility] ASSIGNMENT OF BENEFITS 2023-04-04 22:53:12 Docto r Unassigned, [place] [facility] CONSENT/REFUSAL FOR DIAGNOSIS AND TREATMENT 2023-04-04 22:08:33 Doctor Unassigned, [place] [facility] ASSIGNMENT OF BENEFITS 2023-03-02 19:01:39 Docto r Unassigned, [place] [facility] RAPID INFLUENZA A/B 2023-03-02 17:14:00 Leigh Ann Terry [facility] COVID-19 (ID NOW RAPID TESTING) 2023-03-02 17:14:00 Marin Terry [facility] CONSENT/REFUSAL FOR DIAGNOSIS AND TREATMENT 2023-03-02 16:47:00 Doctor Unassigned, [place] [facility] CONSENT/REFUSAL FOR DIAGNOSIS AND TREATMENT 2022-11-29 16:52:24 Doctor Unassigned, [place] [facility] SARS-COV-2 COVID-19 VACCINE 12 YRS+, 0.3ML,IM (PFIZER - BRONSON TOP) 2022-03-27 15:40:06 Doctor Unassigned, [place] [facility] SARS-COV-2 COVID-19 VACCINE 12 YRS+,0.3ML,IM (PFIZER - BRONSON TOP) 2022-01-04 15:10:11 Doctor Unassigned, [place] [facility] ASSIGNMENT OF BENEFITS 2022-01-04 14:54:21 Docto r Unassigned, [place] [facility] XR CHEST 1 VW 2021-10-06 17:51:00 Shari Levy U [facility] MAGNESIUM 2021-10-06 17:44:00 Shari Levy [facility] TROPONIN I 2021-10-06 17:44:00 Shari Levy [facility] COMP. METABOLIC PANEL ([id number]) 2021-10-06 17:44:00 Shari Levy [facility] CBC WITH DIFF 2021-10-06 17:44:00 Shari Levy [facility] RAPID INFLUENZA A/B 2021-10-06 17:44:00 Cesilia Levy ra [facility] COVID-19 (ID NOW RAPID TESTING) 2021-10-06 17:44:00 Shari Levy [facility] NOTICE OF PRIVACY PRACTICES 2021-10-06 17:25:22 Doctor Unassigned, [place] [facility] CONSENT/REFUSAL FOR DIAGNOSIS AND TREATMENT 2021-10-06 17:24:54 Doctor Unassigned, [place] [facility] Plan of Care Planned Activity Planned Date Details Comments Source Encounters Start Date/Time End Date/Time Encounter Type Admission Type Attending Clinicians Care Facility Care Department Encounter ID Source 2023-07-24 00:00:00 2023-07-24 00:00:00 Transition of Care Gracia Donovan [facility] 1.2.840.114 350.1.13.10 4.2.7.2.686 [id number] [facility] 2023-07-20 06:42:00 2023-07-23 14:40:00 Outpatient LUCINA CHRISTIANSON [facility] [id number] [facility] 2023-07-20 06:42:00 2023-07-23 14:40:00 Emergency Shari Levy, Lucina Frazier [facility] 1.2.840.114 350.1.13.10 4.2.7.2.686 [id number] [facility] 2023-07-16 00:00:00 2023-07-16 00:00:00 Transition of Care France Gutierrez [facility] 1.2.840.114 350.1.13.10 4.2.7.2.686 [id number] [facility] 2023-07-16 00:00:00 2023-07-16 00:00:00 Telephone Yuan [facility] 1.2.840.114 350.1.13.10 4.2.7.2.686 [id number] [facility] 2023-07-16 00:00:00 2023-07-16 00:00:00 [facility] 1.2.840.114 350.1.13.10 4.2.7.2.686 [id number] [facility] 2023-07-13 19:48:00 2023-07-15 21:08:00 Outpatient LUCINA CHRISTIANSON [facility] [id number] [facility] 2023-07-13 19:48:00 2023-07-15 21:08:00 Emergency Jade Lopez, Lucina Rosen, Kaushik [facility] 1.2.840.114 350.1.13.10 4.2.7.2.686 [id number] [facility] 2023-06-28 17:02:00 2023-06-28 21:03:00 Emergency X CHRIS ACOSTA [facility] ERT [id number] [facility] 2023-06-28 17:02:00 2023-06-28 21:03:00 Emergency Chris Acosta [facility] 1.2.840.114 350.1.13.10 4.2.7.2.686 [id number] [facility] 2023-06-16 20:45:00 2023-06-16 22:20:00 Emergency X YULYANGELS [facility] ERT [id number] [facility] 2023-06-16 20:45:00 2023-06-16 22:20:00 Emergency Raissa Olmos [facility] 1.2.840.114 350.1.13.10 4.2.7.2.686 [id number] [facility] 2023-04-04 16:12:00 2023-04-04 17:31:00 Emergency X IGNACIO ELDRIDGE [facility] ERT [id number] [facility] 2023-04-04 16:12:00 2023-04-04 17:31:00 Emergency Ignacio Eldridge [facility] 1.2.840.114 350.1.13.10 4.2.7.2.686 [id number] [facility] 2023-03-02 11:02:00 2023-03-02 13:25:00 Emergency MARIN CHI [facility] ERT [id number] [facility] 2023-03-02 11:02:00 2023-03-02 13:25:00 Emergency Marin Terry [facility] 1.2.840.114 350.1.13.10 4.2.7.2.686 [id number] [facility] 2022-11-29 11:57:00 2022-11-29 13:19:00 Emergency X KOBE TOUSSAINT [facility] ERT [id number] [facility] 2022-11-29 11:57:00 2022-11-29 13:19:00 Emergency Kobe Toussaint [facility] 1.2.840.114 350.1.13.10 4.2.7.2.686 [id number] [facility] 2022-03-27 09:30:00 2022-03-27 09:40:00 Imm/Inj Visit Vaccine, Adc Family Medicine Yony Torres [facility] 1.2.840.114 350.1.13.10 4.2.7.2.686 [id number] [facility] 2022-03-27 09:30:00 2022-03-27 09:30:00 Outpatient R YONY TORRES [facility] [id number] [facility] 2022-03-20 09:30:00 2022-03-20 09:30:00 Outpatient R GERALD MCCULLOUGH [facility] [id number] [facility] 2022-03-08 10:00:00 2022-03-08 10:00:00 Outpatient R UNKNOWN, ATTENDING [facility] [id number] [facility] 2022-02-22 10:00:00 2022-02-22 10:00:00 Outpatient R NICK SOTO [facility] [id number] [facility] 2022-02-08 10:00:00 2022-02-08 10:00:00 Outpatient R UNKNOWN, ATTENDING [facility] [id number] [facility] 2022-01-04 10:00:00 2022-01-04 10:10:00 Imm/Inj Visit Vaccine, Ang Db Leonela Plascecnia Alejandro [facility] 1.2.840.114 350.1.13.10 4.2.7.2.686 [id number] [facility] 2022-01-04 10:00:00 2022-01-04 10:00:00 Outpatient ALEJANDRO PERKINS [facility] [id number] [facility] 2022-01-04 00:00:00 2022-01-04 00:00:00 Orders Only Doctor Unassigned, [place] [facility] 1.2.840.114 350.1.13.10 4.2.7.2.686 [id number] [facility] 2021-10-06 12:37:00 2021-10-06 14:46:00 Emergency X SHARI LEVY [facility] ERT [id number] [facility] 2021-10-06 12:37:00 2021-10-06 14:46:00 Emergency Shari Levy [facility] 1.2.840.114 350.1.13.10 4.2.7.2.686 [id number] [facility] 2021-10-06 00:00:00 2021-10-06 00:00:00 Orders Only Doctor Unassigned, [place] [facility] 1.2.840.114 350.1.13.10 4.2.7.2.686 [id number] [facility] 2020-10-03 14:40:00 2020-10-03 14:40:00 Outpatient ELOISA JOSEPH [facility] [id number] [facility] 2019-04-06 08:40:56 2019-04-06 23:59:00 Outpatient JULIAN DAMIAN [facility] [id number] [facility] Results Test Description Test Time Test Comments Results Result Comments Source CT CHEST PULMONARY ANGIOGRAM 14:49:38 EXAM: CT CHEST PULMONARY ANGIOGRAM CLINICAL INDICATION: 73 years old Female with has known PE and nowworsening CP Comparison: ?CT pulmonary angiogram dated 07/14/2023 TECHNIQUE: Volumetric helical CT angiogram was performed of the chest (lungapices to bases) with IV contrast. Images were reconstructed at 1.25 mmslice thickness. Axial MIPs, as well as coronal and sagittal MPRs weregenerated and reviewed. FINDINGS: Devices: None HEART AND GREAT VESSELS: The opacification of the pulmonary vasculature isappropriate. Two nonoccluding filling defects are redemonstrated in theanterior basal left pulmonary arterial branches. The pulmonary trunk isnormal in caliber. The thoracic aorta is normal in caliber with mild atheroscleroticcalcific ations. Mild vascular calcifications of the proximal LAD areredemonstrated. There are mild calcifications of the coronary vessels. The heart is normal in size. No pericardial abnormalities are identified.The RV to LV is normal. MEDIASTINUM AND LOWER NECK: No central airway lesions are detected. Dilatedproximal esophagus, secondary to aerophagia, is noted. The included thyroidgland appears normal. LYMPH NODES: No evidence of intrathoracic lymphadenopathy. LUNGS AND PLEURA: The lungs are well-expanded . Interval development ofbibasal groundglass and linear opacities. Several scattered calcifiedgranulomas are demonstrated. Mild paraseptal emphysematous changes arenoted. No suspicious nodules. No pleural abnormality detected. VISUALIZED UPPER ABDOMEN: Two left renal cysts are redemonstrated,measurin g 6.6 and 3.3 cm. OSSEOUS STRUCTURES AND SOFT TISSUES: No acute osseous abnormality.Degenerativ e spondylotic changes of the thoracic spine are redemonstrated,in the form of osteophytosis, subchondral sclerosis, and joint space loss.Schmorl's nodes are noted in T11-L1 levels. [facility] [id number] 12:48:18* Test Item Value Reference Range Interpretation Comme nts TROPONIN I (test code = 2718480333) 0.004 ng/mL <=0.034 MIGUELITO (test code = MIGUELITO) Reference (Normal) Range (defined by the 99th percentile reference limit): <= 0.034 ng/mL Note: Cardiac troponin begins to rise 3-4 hours after the onset of ischemia. Repeat in 4-6 hours if the sample was drawn within 3-4 hours of the onset of the symptom and found normal. Diagnosis of myocardial injury is made with acute changes in cTn concentrations with at least one serial sample above the 99th percentile upper reference limit (URL), taken together with the patient's clinical presentation. Biotin has been reported to cause a negative bias, interpret results relative to patient's use of biotin. Lab Interpretation (test code = 70887-1) [facility] [id number] 12:45:38* Test Item Value Reference Range Interpretation Comme nts NT-proBNP (test code = 93872-3) 167 pg/mL <=125 MIGUELITO (test code = MIGUELITO) Result Indeterminate-Consid er causes of NT-proBNP elevation other than Heart failure such as acute coronary syndrome, pulmonary embolism, pulmonary hypertension, sepsis, stroke, and renal dysfunction. Lab Interpretation (test code = 32329-4) Abnormal [facility] 12:37:16* Test Item Value Reference Range Interpretation Comme nts MAGNESIUM (test code = 8841149676) 1.7 mg/dL 1.7-2.4 Lab Interpretation (test cod e = 24966-6) Normal [facility] (30679)2023-07-20 12:37:01* Test Item Value Reference Range Interpretation Comme nts NA (test code = 1287223072) 139 mmol/L 135-145 K (test code = 9854831720) 3.2 mmol/L 3.5-5.0 L CL (test code = 4985624716) 101 mmol/L 98-108 CO2 TOTAL (test code = 2416441165) 34 mmol/L 23-31 H AGAP (test code = 5480911662) 4 2-16 BUN (test code = 0079673308) 10 mg/dL 7-23 GLUCOSE (test code = 0742321785) 115 mg/dL 70-110 H CREATININE (test code = 2160-0) 0.67 mg/dL 0.50-1.04 TOTAL BILI (test code = 2997265812) 0.6 mg/dL 0.1-1.1 CALCIUM (test code = 2996583003) 9.3 mg/dL 8.6-10.6 T PROTEIN (test code = 0150188414) 8.0 g/dL 6.3-8.2 ALBUMIN (test code = 6460521977) 3.9 g/dL 3.5-5.0 ALK PHOS (test code = 4395283675) 128 U/L 34-122 H ALTv (test code = 1742-6) 17 U/L 5-35 AST(SGOT) (test code = 4045861998) 29 U/L 13-40 eGFR (test code = 60685-2) 93.6 mL/min/1.73m2 CKD-EPI eGFR (2020). Assuming creatinine has been stable day-to-day for at least three months, the eGFR indicates Category G1 (>= 90 mL/min/1.73 m2) Lab Interpretation (test code = 25530-7) Abnormal [facility] CHEST PULMONARY [id number] 12:55:19HISTORY: Rule out P.E. TECHNIQUE: Contrast-enhanced 64-mutidetector CT scan of the chest wascompleted with intravenous injection of ?non ionic contrast medium.Subsequently numerous sagittal, coronal and MIP reformations weregenerated. FINDINGS: 2 nonoccluding filling defects are seen in the anterior basalleft pulmonary arterial branches. No other suspicious abnormalities seen inthe pulmonary arterial circulation.Scattered calcified granulomas are seen in both lungs. No suspicious lungnodules. No pneumothorax or pneumomediastinum. No pleural effusion orpericardial effusion. No enlarged lymph nodes in the zev or themediastinum. No sign of right ventricular strain. Atherosclerosis is noted in proximal LAD coronary artery. Atherosclerosisalso seen in the aortic arch. No suspicious abnormalities seen in thethyroid gland. Trachea and central bronchial airways appear normal.Thoracic esophagusis filled with air which could be secondary toaerophagia. No gross pathology seen in the chest wallsoft tissues. Middleand lower thoracic degenerative spondylosis and prominent Schmorl's nodesare seen in the lower thoracic and upper lumbar vertebral endplates, likelysecondary to remote axial loading trauma. Visualized upper abdominal organs showed a large 6.2 cm hypodense lesion inthe upper leftkidney, likely an incidental renal cyst. There is another3.9 cm cyst in the midportion of the left kidney. CONCLUSIONS: 2 small nonoccluding subacute pulmonary thromboemboli inanterior basal left lower lung pulmonary arteries.[facility] (TTE)2023-07-14 22:28:23* Test Item Value Reference Range Interpretation Comme nts Height (test code = 2697692911) 69 in Weight (test code = 2978407189) 162 lbs Systolic BP (test code = 6189725066) 126 mmHg Diastolic BP (test code = 1760347429) 66 mmHg Heart Rate (test code = 9549025319) 63 bpm EF(Teich) (test code = 8402944395) 69.60 % LVIDD (test code = 8205145223) 4.30 cm LVIDS (test code = 1675717492) 2.60 cm Left Ventricular End Systolic Volume by Teichholz Method (test code = 2945055) 25.6 mL Left Ventricular End Diastolic Volume by Teichholz Method (test code = 5470994) 84.0 mL IVS (test code = 1706285999) 0.69 cm LVPWD (test code = 1460350659) 0.74 cm LVOT diameter (test code = 0758684321) 1.80 cm LVOT area (test code = 5336003429) 2.50 cm2 FS (test code = 3139198977) 39 % RVOT Proximal Diameter (test code = 9693671276) 2.33 cm Ao root diam (test code = 4931234446) 2.90 cm Aortic root (test code = 1931730235) 2.9 cm Ao root annulus (test code = 3908979844) 2.9 cm PW (test code = 3534595787) 0.74 cm 0.6-1.1 EF - 2D (test code = 65046605) 69.60 % Interventricular Septum Diastolic Thickness by 2D (test code = 5522535) 0.69 cm BSA (test code = 0458644994) 1.89 m2 TR Peak Claudia (test code = 7008503063) 240.6 cm/s Triscuspid Valve Regurgitation Peak Gradient (test code = 4840118642) 23.2 mmHg ACS (test code = 9163590176) 1.65 cm LA size (test code = 0674078468) 3.7 cm E wave decelartion time (test code = 0492170344) 0.28 s MV Peak E Claudia (test code = 1603074699) 100.1 cm/s MV Peak A Claudia (test code = 5435499656) 98.0 cm/s E/A ratio (test code = 5498332391) 1.02 ratio MR max PG (test code = 7659618095) 48.90 mm[Hg] MR max claudia (test code = 8774035605) 349.50 cm/s Mr max claudia (test code = 2464081475) 349.5 m/s MV Prop V (test code = 8374340304) 85.20 cm/s Aortic valve mean velocity (test code = 1213827052) 102.4 cm/s Ao peak claudia (test code = 5461860164) 168.8 cm/s Ao VTI (test code = 3511421812) 40.8 cm Ao max PG (test code = 4462826879) 11.50 mm[Hg] AV peak gradient (test code = 4690348332) 11.5 mmHg AV mean gradient (test code = 5961673279) 5.1 mmHg LVOT stroke volume (test code = 0504309724) 104.70 cm3 LVOT peak claudia (test code = 1760933172) 158.3 cm/s LVOT mn grad (test code = 6470462421) 4.8 mmHg AV LVOT peak gradient (test code = 1754059672) 10.0 mmHg LVOT peak VTI (test code = 7505426647) 41.1 cm AV area by cont VTI (test code = 1481328243) 2.6 cm2 AV area peak claudia (test code = 7770893315) 2.4 cm2 LV V1 mean (test code = 1585342243) 102.50 cm/s AV valve area (test code = 8574406059) 2.60 cm2 Radiology Study observation (narrative) (test code = 00371-2) MIGUELITO (test code = MIGUELITO) ?Left?Ventricle: Left ventricle size is normal. Normal wall thickness. Normal wall motion. Normal systolic function with a visually estimated EF of 55 - 60%. Indeterminate diastolic function. ?Right?Ventricle: Right ventricle size is normal. Normal systolic function. ?Tricuspid?Valve: Insufficient tricuspid regurgitation jet to estimate RVSP . ?RA pressure is 0-5 mmHg. Left VentricleLeft ventricle size is normal. Normal wall thickness. Normal wall motion. Normal systolic function with a visually estimated EF of 55 - 60%. Indeterminate diastolic function.Right VentricleRight ventricle size is normal. Normal systolic function.Left AtriumLeft atrium size is normal.Right AtriumRight atrium size is normal.IVC/SVCIVC diameter is less than or equal to 21 mm and decreases greater than 50% during inspiration; therefore the estimated right atrial pressure is normal (~0-5 mmHg).Mitral ValveMildly thickened leaflets. Trace transvalvular regurgitation.Tricusp id ValveTricuspid valve structure is normal. Trace transvalvular regurgitation. Insufficient tricuspid regurgitation jet to estimate RVSP . RA pressure is 0-5 mmHg.Aortic ValveTricuspid. Mildly thickened cusps.Pulmonic ValveValve structure is normal. Trace transvalvular regurgitation.Ascendi ng AortaNormal sized aorta.PericardiumThe pericardium is normal. No pericardial effusion.Study DetailsStudy quality was adequate. A complete echocardiogram was performed using 2D, color flow Doppler and spectral Doppler. The apical, parasternal, subcostal and suprasternal views were obtained. [facility] HospitalGlycosylated Hemoglobin (A1C)2023-07-14 19:13:45* Test Item Value Reference Range Interpretation Comme nts HGB A1C (test code = 4548-4) 5.8 % 4.0-5.7 H MIGUELITO (test code = MIGUELITO) Reference RangesNormal: <5.7%Prediabetes: 5.7 - 6.4%Diabetes: > 6.5% Lab Interpretation (test code = 66639-0) [facility]normal [facility]XR [facility] 1 [id number] 02:49:15CHEST X-RAY AP PORTABLE 07/13/2023 9:48 PM Ordering physician: JADE LOPEZ CLINICAL INFORMATION: ?Chest pain COMPARISON: Chest x-ray dated 06/28/2023 TECHNIQUE: ?single AP view of the chest was submitted. FINDINGS: ? Persistent bilateral subcentimeter calcified granulomas. The lungs areotherwise clear. ?No pleural effusions. ?No pneumothorax. ?Calcification tothe thoracic aorta. The cardiomediastinal silhouette is within normallimits. ?No acute radiographic bony abnormalities.[facility] WITH [id number] 02:05:44* Test Item Value Reference Range Interpretation Comme nts WBC (test code = 6690-2) 5.17 4.30-11.10 RBC (test code = 789-8) 3.84 3.93-5.25 L HGB (test code = 718-7) 11.7 g/dL 11.6-15.0 HCT (test code = 4544-3) 36.2 % 35.7-45.2 MCV (test code = 787-2) 94.3 fL 80.6-95.5 MCH (test code = 785-6) 30.5 pg 25.9-32.8 MCHC (test code = 786-4) 32.3 g/dL 31.6-35.1 RDW-SD (test code = 79793-7) 47.6 fL 39.0-49.9 RDW-CV (test code = 788-0) 13.9 % 12.0-15.5 PLT (test code = 777-3) 244 166-358 MPV (test code = 21408-0) 10.1 fL 9.5-12.9 NRBC/100 WBC (test code = 9506588886) 0.0 0.0-10.0 NRBC x10^3 (test code = 1880843431) See_Comment [Automated messa ge] The system which generated this result transmitted reference range: 10*3/?L. The reference range was not used to interpret this result as normal/abnormal. GRAN MAT (NEUT) % (test code = 770-8) 33.4 % IMM GRAN % (test code = 5754910393) 0.20 % LYMPH % (test code = 736-9) 48.5 % MONO % (test code = 5905-5) 10.3 % EOS % (test code = 713-8) 6.4 % BASO % (test code = 706-2) 1.2 % GRAN MAT x10^3(ANC) (test code = 2041677851) 1.73 10*3/uL 1.88-7.09 L IMM GRAN x10^3 (test code = 2810050685) 0.00-0.06 LYMPH x10^3 (test code = 731-0) 2.51 10*3/uL 1.32-3.29 MONO x10^3 (test code = 742-7) 0.53 10*3/uL 0.33-0.92 EOS x10^3 (test code = 711-2) 0.33 10*3/uL 0.03-0.39 BASO x10^3 (test code = 704-7) 0.06 10*3/uL 0.01-0.07 Lab Interpretation (test code = 29530-3) Abnormal [facility]TR[facility] [id number] 01:42:35* Test Item Value Reference Range Interpretation Comme nts TROPONIN I (test code = 9627739821) 0.004 ng/mL <=0.034 MIGUELITO (test code = MIGUELITO) Reference (Normal) Range (defined by the 99th percentile reference limit): <= 0.034 ng/mL Note: Cardiac troponin begins to rise 3-4 hours after the onset of ischemia. Repeat in 4-6 hours if the sample was drawn within 3-4 hours of the onset of the symptom and found normal. Diagnosis of myocardial injury is made with acute changes in cTn concentrations with at least one serial sample above the 99th percentile upper reference limit (URL), taken together with the patient's clinical presentation. Biotin has been reported to cause a negative bias, interpret results relative to patient's use of biotin. Lab Interpretation (test code = 95678-4) Normal [facility] HospitalCOM. METABOLIC PANEL (49456)2023-07-14 01:31:34* Test Item Value Reference Range Interpretation Comme nts NA (test code = 5973079342) 140 mmol/L 135-145 K (test code = 3195255283) 3.2 mmol/L 3.5-5.0 L CL (test code = 8601215276) 102 mmol/L 98-108 CO2 TOTAL (test code = 9715773657) 31 mmol/L 23-31 AGAP (test code = 0847733175) 7 2-16 BUN (test code = 7943275174) 10 mg/dL 7-23 GLUCOSE (test code = 8351925035) 98 mg/dL 70-110 CREATININE (test code = 2160-0) 0.72 mg/dL 0.50-1.04 TOTAL BILI (test code = 1515404843) 0.6 mg/dL 0.1-1.1 CALCIUM (test code = 3639463664) 9.1 mg/dL 8.6-10.6 T PROTEIN (test code = 7649000110) 8.3 g/dL 6.3-8.2 H ALBUMIN (test code = 7757743161) 4.0 g/dL 3.5-5.0 ALK PHOS (test code = 3518160203) 123 U/L 34-122 H ALTv (test code = 1742-6) 19 U/L 5-35 AST(SGOT) (test code = 8655987679) 27 U/L 13-40 eGFR (test code = 69452-0) 89.5 mL/min/1.73m2 Lab Interpretation (test cod e = 41084-2) Abnormal [facility] HospitalLIPASE, [id number] 01:31:14* Test Item Value Reference Range Interpretation Comme nts LIPASE (test code = 8477039763) 67 U/L 0-220 Lab Interpretation (test cod e = 40433-2) Normal [facility] HospitalFr [id number] 00:30:21* Test Item Value Reference Range Interpretation Comme nts FREE T4 (test code = 8848229186) 1.53 0.78-2.20 Lab Interpretation (test cod e = 71231-6) Normal [facility] HospitalTROPONIN [id number] 00:26:00* Test Item Value Reference Range Interpretation Comme nts TROPONIN I (test code = 5418794457) 0.003 ng/mL <=0.034 MIGUELITO (test code = MIGUELITO) Reference (Normal) Range (defined by the 99th percentile reference limit): <= 0.034 ng/mL Note: Cardiac troponin begins to rise 3-4 hours after the onset of ischemia. Repeat in 4-6 hours if the sample was drawn within 3-4 hours of the onset of the symptom and found normal. Diagnosis of myocardial injury is made with acute changes in cTn concentrations with at least one serial sample above the 99th percentile upper reference limit (URL), taken together with the patient's clinical presentation. Biotin has been reported to cause a negative bias, interpret results relative to patient's use of biotin. Lab Interpretation (test code = 67086-4) Normal [facility] HospitalN-TERMINAL HBC-[id number] 00:23:20* Test Item Value Reference Range Interpretation Comme nts NT-proBNP (test code = 27098-6) 79 pg/mL <=125 Lab Interpretation (test cod e = 21473-7) Normal [facility] HospitalThyroid Stimulating [id number] 00:03:21 * Test Item Value Reference Range Interpretation Comme nts TSH (test code = 3142178074) 3.90 0.45-4.70 Lab Interpretation (test cod e = 20968-4) Normal [facility] HospitalCOMP. METABOLIC PANEL (52967)2023-06-28 23:32:58* Test Item Value Reference Range Interpretation Comme nts NA (test code = 8549201637) 142 mmol/L 135-145 K (test code = 3666646623) 3.0 mmol/L 3.5-5.0 L CL (test code = 4239541127) 105 mmol/L 98-108 CO2 TOTAL (test code = 6682589198) 31 mmol/L 23-31 AGAP (test code = 8164371586) 6 2-16 BUN (test code = 7960446001) 12 mg/dL 7-23 GLUCOSE (test code = 6188244438) 118 mg/dL 70-110 H CREATININE (test code = 2160-0) 0.77 mg/dL 0.50-1.04 TOTAL BILI (test code = 1124371588) 0.6 mg/dL 0.1-1.1 CALCIUM (test code = 8109344223) 9.0 mg/dL 8.6-10.6 T PROTEIN (test code = 1517814183) 8.3 g/dL 6.3-8.2 H ALBUMIN (test code = 9631299833) 4.1 g/dL 3.5-5.0 ALK PHOS (test code = 2485863118) 106 U/L 34-122 ALTv (test code = 1742-6) 16 U/L 5-35 AST(SGOT) (test code = 9442540359) 29 U/L 13-40 eGFR (test code = 89676-0) 82.6 mL/min/1.73m2 CKD-EPI eGFR (2020). Assuming creatinine has been stable day-to-day for at least three months, the eGFR indicates Category G2 (60 - 89 mL/min/1.73 m2) Lab Interpretation (test code = 22038-6) Abnormal [facility] WITH [id number] 23:24:16* Test Item Value Reference Range Interpretation Comme nts WBC (test code = 6690-2) 5.55 4.30-11.10 RBC (test code = 789-8) 3.83 3.93-5.25 L HGB (test code = 718-7) 11.6 g/dL 11.6-15.0 HCT (test code = 4544-3) 35.7 % 35.7-45.2 MCV (test code = 787-2) 93.2 fL 80.6-95.5 MCH (test code = 785-6) 30.3 pg 25.9-32.8 MCHC (test code = 786-4) 32.5 g/dL 31.6-35.1 RDW-SD (test code = 41311-4) 46.5 fL 39.0-49.9 RDW-CV (test code = 788-0) 13.7 % 12.0-15.5 PLT (test code = 777-3) 325 166-358 MPV (test code = 48437-3) 10.2 fL 9.5-12.9 NRBC/100 WBC (test code = 1104912988) 0.0 0.0-10.0 NRBC x10^3 (test code = 3251497716) See_Comment [Automated Advise Onlya ge] The system which generated this result transmitted reference range: 10*3/?L. The reference range was not used to interpret this result as normal/abnormal. GRAN MAT (NEUT) % (test code = 770-8) 42.6 % IMM GRAN % (test code = 5821684525) 0.20 % LYMPH % (test code = 736-9) 42.2 % MONO % (test code = 5905-5) 9.2 % EOS % (test code = 713-8) 4.9 % BASO % (test code = 706-2) 0.9 % GRAN MAT x10^3(ANC) (test code = 3901259829) 2.37 10*3/uL 1.88-7.09 IMM GRAN x10^3 (test code = 2655140747) 0.00-0.06 LYMPH x10^3 (test code = 731-0) 2.34 10*3/uL 1.32-3.29 MONO x10^3 (test code = 742-7) 0.51 10*3/uL 0.33-0.92 EOS x10^3 (test code = 711-2) 0.27 10*3/uL 0.03-0.39 BASO x10^3 (test code = 704-7) 0.05 10*3/uL 0.01-0.07 Lab Interpretation (test code = 90006-4) [facility] 1 [id number] 23:21:36ORDERING PHYSICIAN: CHRIS ACOSTA HISTORY: ?cough TECHNIQUE: frontal chest x-ray, 1 view. ? COMPARISON EXAMINATIONS: 04/04/2023 FINDINGS: The cardiomediastinal silhouette does not appear enlarged. There is no evidence for pneumothorax. There is no evidence for pleuraleffusion. No focal airspace infiltrates are identified. The pulmonary vascularityappears within normal limits allowing for technique. ?A few subcentimetercalcified granulomas are noted involving the left lung, largest measuring 3mm. The osseous structures appear intact.[facility] HospitalTroponin [id number] 03:55:51* Test Item Value Reference Range Interpretation Comme nts TROPONIN I (test code = 3898814807) 0.002 ng/mL <=0.034 MIGUELITO (test code = MIGUELITO) Reference (Normal) Range (defined by the 99th percentile reference limit): <= 0.034 ng/mL Note: Cardiac troponin begins to rise 3-4 hours after the onset of ischemia. Repeat in 4-6 hours if the sample was drawn within 3-4 hours of the onset of the symptom and found normal. Diagnosis of myocardial injury is made with acute changes in cTn concentrations with at least one serial sample above the 99th percentile upper reference limit (URL), taken together with the patient's clinical presentation. Biotin has been reported to cause a negative bias, interpret results relative to patient's use of biotin. Lab Interpretation (test code = 18716-5) Normal [facility] Metabolic Panel (NA, K, CL, CO2, GLUCOSE, BUN, CREATININE, CA)2023-06-17 03:44:31* Test Item Value Reference Range Interpretation Comme nts NA (test code = 5406139117) 144 mmol/L 135-145 K (test code = 6773430033) 3.6 mmol/L 3.5-5.0 CL (test code = 6866379453) 110 mmol/L 98-108 H CO2 TOTAL (test code = 9650613219) 30 mmol/L 23-31 AGAP (test code = 1318033551) 4 2-16 BUN (test code = 5245444480) 15 mg/dL 7-23 GLUCOSE (test code = 3371942300) 107 mg/dL 70-110 CREATININE (test code = 2160-0) 0.77 mg/dL 0.50-1.04 CALCIUM (test code = 1348035109) 9.1 mg/dL 8.6-10.6 eGFR (test code = 90383-4) 82.6 mL/min/1.73m2 CKD-EPI eGFR (2020). Assuming creatinine has been stable day-to-day for at least three months, the eGFR indicates Category G2 (60 - 89 mL/min/1.73 m2) Lab Interpretation (test code = 94604-4) Abnormal [facility] with [id number] 03:34:33* Test Item Value Reference Range Interpretation Comme nts WBC (test code = 6690-2) 5.17 4.30-11.10 RBC (test code = 789-8) 3.65 3.93-5.25 L HGB (test code = 718-7) 11.2 g/dL 11.6-15.0 L HCT (test code = 4544-3) 34.2 % 35.7-45.2 L MCV (test code = 787-2) 93.7 fL 80.6-95.5 MCH (test code = 785-6) 30.7 pg 25.9-32.8 MCHC (test code = 786-4) 32.7 g/dL 31.6-35.1 RDW-SD (test code = 00682-4) 46.8 fL 39.0-49.9 RDW-CV (test code = 788-0) 13.6 % 12.0-15.5 PLT (test code = 777-3) 310 166-358 MPV (test code = 90200-7) 10.0 fL 9.5-12.9 NRBC/100 WBC (test code = 1089320974) 0.0 0.0-10.0 NRBC x10^3 (test code = 9689664507) See_Comment [Automated messa ge] The system which generated this result transmitted reference range: 10*3/?L. The reference range was not used to interpret this result as normal/abnormal. GRAN MAT (NEUT) % (test code = 770-8) 42.5 % IMM GRAN % (test code = 2736982363) 0.00 % LYMPH % (test code = 736-9) 40.6 % MONO % (test code = 5905-5) 11.8 % EOS % (test code = 713-8) 4.3 % BASO % (test code = 706-2) 0.8 % GRAN MAT x10^3(ANC) (test code = 3976322968) 2.20 10*3/uL 1.88-7.09 IMM GRAN x10^3 (test code = 7200866298) 0.00-0.06 LYMPH x10^3 (test code = 731-0) 2.10 10*3/uL 1.32-3.29 MONO x10^3 (test code = 742-7) 0.61 10*3/uL 0.33-0.92 EOS x10^3 (test code = 711-2) 0.22 10*3/uL 0.03-0.39 BASO x10^3 (test code = 704-7) 0.04 10*3/uL 0.01-0.07 Lab Interpretation (test code = 11274-8) Abnormal [facility] WITH [id number] 18:42:07* Test Item Value Reference Range Interpretation Comme nts WBC (test code = 6690-2) See_Comment L [Automated messa ge] The system which generated this result transmitted reference range: 4.30 - 11.10 10*3/?L. The reference range was not used to interpret this result as normal/abnormal. RBC (test code = 789-8) See_Comment [Automated messa ge] The system which generated this result transmitted reference range: 3.93 - 5.25 10*6/?L. The reference range was not used to interpret this result as normal/abnormal. HGB (test code = 718-7) 12.2 g/dL 11.6-15.0 HCT (test code = 4544-3) 37.5 % 35.7-45.2 MCV (test code = 787-2) 90.6 fL 80.6-95.5 MCH (test code = 785-6) 29.5 pg 25.9-32.8 MCHC (test code = 786-4) 32.5 g/dL 31.6-35.1 RDW-SD (test code = 13815-0) 45.5 fL 39.0-49.9 RDW-CV (test code = 788-0) 13.7 % 12.0-15.5 PLT (test code = 777-3) See_Comment [Automated Advise Onlya ge] The system which generated this result transmitted reference range: 166 - 358 10*3/?L. The reference range was not used to interpret this result as normal/abnormal. MPV (test code = 59944-8) 9.8 fL 9.5-12.9 NRBC/100 WBC (test code = 9151727436) See_Comment [Automated Leatt ssage] The system which generated this result transmitted reference range: 0.0 - 10.0 /100 WBCs. The reference range was not used to interpret this result as normal/abnormal. NRBC x10^3 (test code = 5928677153) <0.01 See_Comment [Automated messa ge] The system which generated this result transmitted reference range: 10*3/?L. The reference range was not used to interpret this result as normal/abnormal. GRAN MAT (NEUT) % (test code = 770-8) 40.7 % IMM GRAN % (test code = 8622641670) 0.20 % LYMPH % (test code = 736-9) 43.7 % MONO % (test code = 5905-5) 10.5 % EOS % (test code = 713-8) 4.2 % BASO % (test code = 706-2) 0.7 % GRAN MAT x10^3(ANC) (test code = 6063298559) 1.74 10*3/uL 1.88-7.09 L IMM GRAN x10^3 (test code = 7845293787) <0.03 0.00-0.06 LYMPH x10^3 (test code = 731-0) 1.87 10*3/uL 1.32-3.29 MONO x10^3 (test code = 742-7) 0.45 10*3/uL 0.33-0.92 EOS x10^3 (test code = 711-2) 0.18 10*3/uL 0.03-0.39 BASO x10^3 (test code = 704-7) 0.03 10*3/uL 0.01-0.07 REACT LYMPHS (test code = 6216062820) Rare Lab Interpretation (test code = 96231-5) [facility]normal [facility] [id number] 18:19:15* Test Item Value Reference Range Interpretation Comments TROPONIN I (test code = 4266620122) 0.004 ng/mL See_Comment [Automated message] The system which generated this result transmitted reference range: <=0.034. The reference range was not used to interpret this result as normal/abnormal. MIGUELITO (test code = MIGUELITO) Reference (Normal) Range (defined by the 99th percentile reference limit): <= 0.034 ng/mL Note: Cardiac troponin begins to rise 3-4 hours after the onset of ischemia. Repeat in 4-6 hours if the sample was drawn within 3-4 hours of the onset of the symptom and found normal. Diagnosis of myocardial injury is made with acute changes in cTn concentrations with at least one serial sample above the 99th percentile upper reference limit (URL), taken together with the patient's clinical presentation. Biotin has been reported to cause a negative bias, interpret results relative to patient's use of biotin. Lab Interpretation (test code = 08108-8) Normal [facility]COMP[facility]OLIC PANEL ([id number])2021-10-06 18:07:33* Test Item Value Reference Range Interpretation Comme nts NA (test code = 1407310029) 141 mmol/L 135-145 K (test code = 6310085115) 4.1 mmol/L 3.5-5.0 CL (test code = 8954448504) 101 mmol/L 98-108 CO2 TOTAL (test code = 3965243470) 30 mmol/L 23-31 AGAP (test code = 6792576845) 2-16 BUN (test code = 7789648145) 15 mg/dL 7-23 GLUCOSE (test code = 3601719864) 97 mg/dL 70-110 CREATININE (test code = 6109648781) 0.78 mg/dL 0.50-1.04 TOTAL BILI (test code = 4445759072) 0.8 mg/dL 0.1-1.1 CALCIUM (test code = 4782199817) 9.9 mg/dL 8.6-10.6 T PROTEIN (test code = 7986003863) 8.5 g/dL 6.3-8.2 H ALBUMIN (test code = 3994259106) 4.5 g/dL 3.5-5.0 ALK PHOS (test code = 4199197216) 138 U/L 34-122 H ALTv (test code = 1742-6) 19 U/L 5-35 AST(SGOT) (test code = 8866327476) 31 U/L 13-40 eGFR (test code = 9273537459) mL/min/1.73m2 MIGUELITO (test code = MIGUELITO) Association of Glomerular Filtration Rate (GFR) and Staging of Kidney Disease* + --+ --+ ------+| GFR (mL/min/1.73 m2) ?| With Kidney Damage ?| ?Without Kidney Damage+ --------+ --------+ +| ?>90 ?| ?Stage one ?| ? Normal ?+ ---+ ---+ -------+| ?60-89 ?| ?Stage two ?| ? Decreased GFR ? + --+ --+ ------+| ?30-59 ?| ?Stage three ?| ? Stage three ? + --+ --+ ------+| ?15-29 ?| ?Stage four ? | ? Stage four ?+ ---+ ---+ -------+| ?<15 (or dialysis) ? ?| ?Stage five ? | ? Stage five ?+ ---+ ---+ -------+ *Each stage assumes the associated GFR level has been in effect for at least three months. ?Stages 1 to 5, with or without kidney disease, indicate chronic kidney disease. Notes: Determination of stages one and two (with eGFR >59mL/min/1.73 m2) requires estimation of kidney damage for at least three months as defined by structural or functional abnormalities of the kidney, manifested by either:Pathological abnormalities or Markers of kidney damage (including abnormalities in the composition of the blood or urine or abnormalities in imaging tests). Lab Interpretation (test code = 62612-6) [facility]normal [facility] 18:07:33* Test Item Value Reference Range Interpretation Comme nts MAGNESIUM (test code = 2806020924) 1.6 mg/dL 1.7-2.4 L Lab Interpretation (test cod e = 73882-9) Abnormal [facility] Consult Notes Date/Time Note Provider Source 2023-07-20 18:51:44 0GYBdhWa+R/ZewuAlIo4 Ix3a8lGiwRejfatLi W/CSmC+WDm787jdXJk2KYqatoiY4036-09-94 T18:51:44Associated Order(s): [facility]SULT [facility]OLOGY [facility] Cardiology ConsultPCP: [place] of Service: 4CHIEF COMPLAINT/reason for consult: Chest painHISTORY OF PRESENT ILLNESSThis is a 73 years old female with past medical history of hypertension and hyperlipidemia who came to [facility] due to chest pain. She was recently treated for bronchitis versus pneumonia. She was also found to have small pulmonary embolism. For the past few days she has noted precordial chest pain starting on the right side spreading to the middle and the left side. It is achy pain, nonexertional, lasting 20 seconds to 1 minute, associate with nausea. No dyspnea or sweating. She also has left shoulder pain which is worse with certain position. She has some cough as well. EKG is normal. Troponin has been negative. Recent echocardiogram showed a normal ejection fraction and wall motion. Her father had myocardial infarction at age of 65.PAST MEDICAL HISTORYPast Medical History:Diagnosis DateDepressionHeart murmurHypertensionPast Surgical History:Procedure Laterality DateCYST EXCISIONwrist leftTUBAL LIGATIONFamily HistoryProblem Relation Age of OnsetHypertension MotherHeart FatherALLERGIESNo Known AllergiesMEDICATIONSNo current facility-administered medications on file prior to encounter.Current Outpatient Medications on File Prior to EncounterMedication Sig Dispense Refillaspirin 81 mg chewable tablet Take 1 tablet by mouth in the morning.apixaban 5 mg tablet Take 2 tablets by mouth in the morning and 2 tablets in the evening. Do all this for 7 days. Indications: a clot in the lung 28 tablet 0[START ON 07/23/2023] apixaban 5 mg tablet Take 1 tablet by mouth in the morning and 1 tablet in the evening. Do all this for 21 days. Indications: a clot in the lung 42 tablet 0hydrALAZINE 10 mg tablet Take 1 tablet by mouth in the morning and 1 tablet in the evening. 60 tablet 0atorvastatin 20 mg tablet Take 1 tablet by mouth at bedtime.amLODIPine 10 mg tablet Take 1 tablet by mouth in the morning. 1carvedilol 25 mg tablet Take 1 tablet by mouth in the morning and 1 tablet in the evening. 1irbesartan-hydrochlorothiazide 300-12.5 mg per tablet Take 1 tablet by mouth in the morning.SOCIAL HISTORYSocial HistorySocioeconomic HistoryMarital status: WidowedTobacco UseSmoking status: NeverPassive exposure: NeverSmokeless tobacco: NeverSubstance and Sexual ActivityAlcohol use: Not CurrentlyDrug use: NeverSexual activity: YesPartners: MaleSocial History NarrativePatient feels safe at home no abuseReligious preference: methodistSocial Determinants of HealthFinancial Resource Strain: Low Risk (07/20/2023)Overall Financial Resource Strain (CARDIA)Difficulty of Paying Living Expenses: Not hard at allFood Insecurity: No Food Insecurity (07/20/2023)Hunger Vital SignWorried About Running Out of Food in the Last Year: Never trueRan Out of Food in the Last Year: Never trueTransportation Needs: No Transportation Needs (07/20/2023)PRAPARE - TransportationLack of Transportation (Medical): NoLack of Transportation (Non-Medical): NoPhysical Activity: Insufficiently Active (07/20/2023)Exercise Vital SignDays of Exercise per Week: 3 daysMinutes of Exercise per Session: 30 minSocial Connections: Unknown (07/20/2023)Social Connection and Isolation Panel [NHANES]Frequency of Communication with Friends and Family: More than three times a weekMarital Status: WidowedHousing Stability: Low Risk (07/20/2023)Housing Stability Vital SignUnable to Pay for Housing in the Last Year: NoNumber of Places Lived in the Last Year: 1Unstable Housing in the Last Year: NoREVIEW OF SYSTEMSAt least 10 systems reviewed, negative except as mentioned in HPIPHYSICAL EXAMINATIONVitals:07/20/23 1000 07/20/23 1009 07/20/23 1215 07/20/23 1524BP: (!) 170/89 135/70 136/76Pulse: 72 79 72Resp: 16 19 16Temp: 36.6 ?C (97.9 ?F) 36.5 ?C (97.7 ?F) 36.3 ?C (97.4 ?F)TempSrc:SpO2: 99% 98% 98%Weight: 73.5 kg (162 lb)Height: 1.753 m (5' 9")Constitutional: alert and oriented x 3 (person, place and date/time); no apparent distressENT: normocephalic atraumatic, supple, no lymphadenopathy, no bruits, no JVDLungs: clear to auscultation bilaterallyCardiovascular: S1, S2 normal, regular; no murmurs, rubs or gallopsGI: soft; non-tender; non-distended; normoactive bowel soundsGU: not examinedMusculoskeletal: Extremities: no clubbing, cyanosis, or edemaSkin: no rashesNeuro: no focal deficitsLABS - reviewed pertinent labs as below:CBC BMP PT/INRWBC (10*3/?L)Date Value07/20/2023 4.03 (L)NA (mmol/L)Date Value07/20/2023 139No results found for: "PT"PLT (10*3/?L)Date Value07/20/2023 242K (mmol/L)Date Value07/20/2023 3.2 (L)No results found for: "PTINR"HGB (g/dL)Date Value0404/2023 11.3 (L)BUN (mg/dL)Date Value07/20/2023 10HCT (%)Date Value07/20/2023 34.9 (L)CREATININE (mg/dL)Date Value07/20/2023 0.67LIPID PROFILEGLUCOSE (mg/dL)Date Value07/20/2023 115 (H)CHOL (mg/dL)Date Value07/14/2023 126TSH LDL CHOL (mg/dL)Date Value07/14/2023 71TSH (mIU/L)Date Value06/28/2023 3.90CARDIAC ENZYMES HDL (mg/dL)Date Value07/14/2023 48 (L)No results found for: "CK" TRIG (mg/dL)Date Value07/14/2023 37LFTs No results found for: "CKMB"AST(SGOT) (U/L)Date Value07/20/2023 29TROPONIN I (ng/mL)Date Value07/20/2023 0.006ALTv (U/L)Date Value07/20/2023 17No results found for: "BNP"IMAGING - reviewed, pertinent results as below: Chest y-zjq-dwmgoVYJ: Normal EKGASSESSMENT/PLANPrincipal Problem:Chest pain, unspecified typeActive Problems:Coronary artery calcificationPrimary hypertensionOther hyperlipidemiaOther pulmonary embolism without acute cor pulmonaleChest pain-chest pain is atypical and less likely angina. It is not exertional, with very short duration. EKG showed no acute changes. Troponin has been negative. Recent echocardiogram showed normal ejection fraction, wall motion and pericardial space. CT scan of the chest showed mild coronary artery calcification. Recommend Lexiscan nuclear stress test to assess ischemia. N.p.o. after midnight. Avoid caffeine from now. Continue Lipitor. Recommend to continue aspirin 81 mg daily. Suspect it is most likely due to recent pulm infection.Pulm embolism-continue anticoagulation with Eliquis.Coronary artery calcification-by my review it is mild. Recommend aspirin and Lipitor.Hypertension-her blood pressure is well-controlled. Continue amlodipine, Coreg and hydralazine.Hyperlipidemia-continue Lipitor.Thank you for allowing us to participate in the care of your patient. Please feel free to contact us for any questions or if we can be of further assistance.Ambrosio Bolden MD, [facility], FASEAssociate ProfessorDivision of Cardiovascular MedicineMetropolitan Methodist Hospital [address]-0Tvtgppa yvnsET5621-36-61R99:54:08Consult noteTXT1.2.840.012538.1.13.104.2.7.2. 814890|[id number] for patient emms19790-2Ufmdanh noteLNNARRATIVEFormatted C-CDA narrative text[address] [id number] VGTTMFQDMFVETFPKRTECK7787-87-16T55:54 :081.2.840.011048.1.72.3.15|1.2.840.1 61274.1.13.104.2.7.2.727879_[id number] 1 [facility] [place] 2023-07-14 19:18:16 37w+p+ocDuAm/Wsn6u7U 9ZntXbcZqrMevweKA 9VvOCTYRRg1dMKbeVnW22Urur6h9446-46-21 T19:18:16Associated Order(s): CONSULT CARDIOLOGY [facility] Cardiology ConsultPCP: [place] of Service: 4CHIEF COMPLAINT/reason for consult: Chest painHISTORY OF PRESENT ILLNESSThis is a 73 years old female with past medical history of hypertension and hyperlipidemia who came to [facility] due to chest pain. She was recently treated for bronchitis versus pneumonia. For the past few days she has noted precordial chest pain starting on the right side spreading to the middle and the left side. It is abdominal pain, nonexertional, lasting 20 seconds to 1 minute, associate with nausea. No dyspnea or sweating. She also has left shoulder pain which is worse with certain position. The chest pain is worse with palpation. She has some cough as well. EKG is normal. Troponin has been negative. Echocardiogram showed a normal ejection fraction and wall motion. Her father had myocardial infarction at age of 65.PAST MEDICAL HISTORYPast Medical History:Diagnosis DateDepressionHeart murmurHypertensionPast Surgical History:Procedure Laterality DateCYST EXCISIONwrist leftTUBAL LIGATIONFamily HistoryProblem Relation Age of OnsetHypertension MotherHeart FatherALLERGIESNo Known AllergiesMEDICATIONSNo current facility-administered medications on file prior to encounter.Current Outpatient Medications on File Prior to EncounterMedication Sig Dispense Refillamoxicillin 500 mg capsule Take 1 capsule by mouth in the morning and 1 capsule at noon and 1 capsule in the evening.hydrALAZINE 10 mg tablet Take 1 tablet by mouth in the morning and 1 tablet in the evening. 60 tablet 0atorvastatin 20 mg tablet Take 1 tablet by mouth at bedtime.amLODIPine 10 mg tablet Take 1 tablet by mouth in the morning. 1aspirin 325 mg tablet Take 1 tablet by mouth in the morning.carvedilol 25 mg tablet Take 1 tablet by mouth in the morning and 1 tablet in the evening. 1irbesartan-hydrochlorothiazide 300-12.5 mg per tablet Take 1 tablet by mouth in the morning.SOCIAL HISTORYSocial HistorySocioeconomic HistoryMarital status: WidowedTobacco UseSmoking status: NeverPassive exposure: NeverSmokeless tobacco: NeverSubstance and Sexual ActivityAlcohol use: Not CurrentlyDrug use: NeverSexual activity: YesPartners: MaleSocial History NarrativePatient feels safe at home no abuseReligious preference: methodistSocial Determinants of HealthFinancial Resource Strain: Low Risk (07/14/2023)Overall Financial Resource Strain (CARDIA)Difficulty of Paying Living Expenses: Not hard at allFood Insecurity: No Food Insecurity (07/14/2023)Hunger Vital SignWorried About Running Out of Food in the Last Year: Never trueRan Out of Food in the Last Year: Never trueTransportation Needs: No Transportation Needs (07/14/2023)PRAPARE - TransportationLack of Transportation (Medical): NoLack of Transportation (Non-Medical): NoPhysical Activity: Insufficiently Active (07/14/2023)Exercise Vital SignDays of Exercise per Week: 3 daysMinutes of Exercise per Session: 30 minSocial Connections: Unknown (07/14/2023)Social Connection and Isolation Panel [NHANES]Frequency of Communication with Friends and Family: More than three times a weekMarital Status: WidowedHousing Stability: Low Risk (07/14/2023)Housing Stability Vital SignUnable to Pay for Housing in the Last Year: NoNumber of Places Lived in the Last Year: 1Unstable Housing in the Last Year: NoREVIEW OF SYSTEMSAt least 10 systems reviewed, negative except as mentioned in HPIPHYSICAL EXAMINATIONVitals:07/14/23 1600 07/14/23 1700 07/14/23 1702 07/14/23 1800BP: 130/72 127/79 127/79 126/82Pulse: 67 89 74 76Resp: 20 17Temp:TempSrc:SpO2: 100% 97% 97% 100%Weight:Height:Constitutional: alert and oriented x 3 (person, place and date/time); no apparent distressENT: normocephalic atraumatic, supple, no lymphadenopathy, no bruits, no JVDLungs: clear to auscultation bilaterallyCardiovascular: S1, S2 normal, regular; no murmurs, rubs or gallopsGI: soft; non-tender; non-distended; normoactive bowel soundsGU: not examinedMusculoskeletal: Extremities: no clubbing, cyanosis, or edemaSkin: no rashesNeuro: no focal deficitsLABS - reviewed pertinent labs as below:CBC BMP PT/INRWBC (10*3/?L)Date Value07/13/2023 5.17NA (mmol/L)Date Value07/14/2023 140No results found for: "PT"PLT (10*3/?L)Date Value07/13/2023 244K (mmol/L)Date Value07/14/2023 3.7No results found for: "PTINR"HGB (g/dL)Date Value07/13/2023 11.7BUN (mg/dL)Date Value07/14/2023 10HCT (%)Date Value07/13/2023 36.2CREATININE (mg/dL)Date Value07/14/2023 0.83LIPID PROFILEGLUCOSE (mg/dL)Date Value07/14/2023 128 (H)CHOL (mg/dL)Date Value07/14/2023 126TSH LDL CHOL (mg/dL)Date Value07/14/2023 71TSH (mIU/L)Date Value06/28/2023 3.90CARDIAC ENZYMES HDL (mg/dL)Date Value07/14/2023 48 (L)No results found for: "CK" TRIG (mg/dL)Date Value07/14/2023 37LFTs No results found for: "CKMB"AST(SGOT) (U/L)Date Value07/13/2023 27TROPONIN I (ng/mL)Date Value07/14/2023 0.004ALTv (U/L)Date Value07/13/2023 19No results found for: "BNP"IMAGING - reviewed, pertinent results as below: Chest b-fzo-sujppZNI: Normal EKGASSESSMENT/PLANPrincipal Problem:Chest pain, unspecified typeActive Problems:Coronary artery calcificationPrimary hypertensionOther hyperlipidemiaChest pain-chest pain is atypical and less likely angina. It is not exertional, with very short duration, and it is reproducible. EKG showed no acute changes. Troponin has been negative. Echocardiogram showed a normal ejection fraction, wall motion and pericardial space. CT scan of the chest showed mild coronary artery calcification. Recommend outpatient nuclear stress test to assess ischemia. Continue Lipitor. Recommend to start aspirin 81 mg daily. Suspect it is most likely due to recent pulm infection.Coronary artery calcification-by my review it is mild. Recommend aspirin and Lipitor.Hypertension-her blood pressure is well-controlled. Continue amlodipine, Coreg and hydralazine.Hyperlipidemia-continue Lipitor.Thank you for allowing us to participate in the care of your patient. Please feel free to contact us for any questions or if we can be of further assistance.Ambrosio Bolden MD, FACC, FASEAssociate ProfessorDivision of Cardiovascular MedicineMetropolitan Methodist Hospital [address]-0Qshdril kyrlMO8407-12-42N91:23:01Consult noteTXT1.2.840.404924.1.13.104.2.7.2. 417015|[id number] for patient bbuq50310-6Annnmdq noteLNNARRATIVEFormatted C-CDA narrative text[address] G[id number] CIRPUUXAPBZWFULKTXXLO0186-18-04X97:23 :011.2.840.093950.1.72.3.15|1.2.840.1 07822.1.13.104.2.7.2.727879_[id number] 6 [facility] [place] 2023-07-14 10:00:00 oK2KnJofv1YSJPNNIN7F Lsif6/hVhdfO2ayP7 HHwJSaBjCR+4Gu23t3DLXe6RgYm9766-61-11 T10:00:00Associated Order(s): CONSULT PS PASTORAL CARE EventChaplain visited with patient per consult.InterventionChaplain was a spiritual presence and minister helper. [employer] offered active compassionate listening. [employer] provided patient with words of support and encouragement. [employer] prayed for patient healing and recovery.Outcome/Spiritual AssessmentPatient received awake in bed. Patient was pleasant and welcoming of the visit. Patient has a strong belief in God. Patient loss her a few months ago. Patient is experiencing the grief cycle. Patient has a supportive family. Patient welcomed prayer from the [employer] and thanked her for the visit.PlanAdditional [employer] support is available upon request.[employer] Lakesha Yip [facility] [phone] signed by Lakesha Yip at 07/14/2023 4:00 PM [id number] ppdfTU9861-20-09B80:00:05Consult noteTXT1.2.840.871087.1.13.104.2.7.2. 245681|[id number] for patient srsn16004-4Xkfeefi noteLNNARRATIVEFormatted C-CDA narrative [id number] M Isaac[address] Ij[id number] IOFKGIMPDSKLTTFNURADJ9820-13-91Q64:00 :051.2.840.351408.1.72.3.15|1.2.840.1 98757.1.13.104.2.7.2.727879_[id number] 4 Lakesha Yip [facility] [place] History and Physical Notes Date/Time Note Provider Source 2023-07-20 14:45:13 w9txUmPJGoO1C3E0+q3n 4ZdxR0fIs848miSSwZVsS0 db+C5aDUc6yTfwu58YSIFS3757-30-38M10:45:13F ormatting of this note is different from the original.[facility] Hospitalist Admission H&PDate of Service: 4CHIEF COMPLAINT: Chest painHISTORY OF PRESENT ILLNESSYamile Daugherty is a 73 year old female with history of HTN, HLD, pulmonary embolism who presents with gradual onset of chest pain that worsened in the last 3 days. Patient stated that the chest pain mid to right substernal pain 7/10 that lasted about 10 minutes. Patient does state the pain is intermittent. Patient also has associated symptoms of nausea and difficulty taking a deep breath. Patient denies leg or calf pain, recent travel, any injury or shortness of breath. Patient states the pain does not radiate to any extremities. Patient seen in the ED and CT chest positive for 2 nonocclusive subacute chronic pulmonary embolism in the anterior basal left lung pulmonary artery. Patient also developed some bibasilar groundglass opacity likely representing mild pulmonary edema however an infectious process cannot be excluded. He was consulted for inpatient admission and further evaluation.PAST MEDICAL HISTORYPast Medical History:Diagnosis DateDepressionHeart murmurHypertensionPAST SURGICAL HISTORYPast Surgical History:Procedure Laterality DateCYST EXCISIONwrist leftTUBAL LIGATIONALLERGIESNo Known AllergiesMEDICATIONSCurrent home medication list reviewed:Current Discharge Medication ListSTOP taking these medicationsaspirin 81 mg chewable tablet Comments:Reason for Stopping:apixaban 5 mg tablet Comments:Reason for Stopping:apixaban 5 mg tablet Comments:Reason for Stopping:hydrALAZINE 10 mg tablet Comments:Reason for Stopping:atorvastatin 20 mg tablet Comments:Reason for Stopping:amLODIPine 10 mg tablet Comments:Reason for Stopping:carvedilol 25 mg tablet Comments:Reason for Stopping:irbesartan-hydrochlorothiazide 300-12.5 mg per tablet Comments:Reason for Stopping:FAMILY HISTORYFamily HistoryProblem Relation Age of OnsetHypertension MotherHeart FatherSOCIAL HISTORYSocial HistorySocioeconomic HistoryMarital status: WidowedTobacco UseSmoking status: NeverPassive exposure: NeverSmokeless tobacco: NeverSubstance and Sexual ActivityAlcohol use: Not CurrentlyDrug use: NeverSexual activity: YesPartners: MaleSocial History NarrativePatient feels safe at home no abuseReligious preference: methodistSocial Determinants of HealthFinancial Resource Strain: Low Risk (07/20/2023)Overall Financial Resource Strain (CARDIA)Difficulty of Paying Living Expenses: Not hard at allFood Insecurity: No Food Insecurity (07/20/2023)Hunger Vital SignWorried About Running Out of Food in the Last Year: Never trueRan Out of Food in the Last Year: Never trueTransportation Needs: No Transportation Needs (07/20/2023)PRAPARE - TransportationLack of Transportation (Medical): NoLack of Transportation (Non-Medical): NoPhysical Activity: Insufficiently Active (07/20/2023)Exercise Vital SignDays of Exercise per Week: 3 daysMinutes of Exercise per Session: 30 minSocial Connections: Unknown (07/20/2023)Social Connection and Isolation Panel [NHANES]Frequency of Communication with Friends and Family: More than three times a weekMarital Status: WidowedHousing Stability: Low Risk (07/20/2023)Housing Stability Vital SignUnable to Pay for Housing in the Last Year: NoNumber of Places Lived in the Last Year: 1Unstable Housing in the Last Year: NoREVIEW OF SYSTEMSConstitutional: negative fevers/chills, weight changesEyes: negative acute blurry vision, eye dischargeEars, Nose, Mouth, Throat: negative dysphagia, runny nose, sore throat, tinnitusCardiovascular: positive for chest painRespiratory: negative sob, coughGastrointestinal: negative abd pain, nausea, vomitingGenitourinary: Negative dysuria, hematuriaMusculoskeletal: negative calf pain, swellingIntegumentray: negative rash, itchingNeurological: negative syncope, focal weaknessPsychiatric: negative hallucinationsPHYSICAL EXAMINATIONBP 135/70 | Pulse 79 | Temp 36.5 ?C (97.7 ?F) | Resp 19 | Ht 1.753 m (5' 9") | Wt 73.5 kg (162 lb) | SpO2 98% | BMI 23.92 kg/m?General: No acute distressHEENT: Normal oral mucosa, anicteric sclerae, NCATCardiovascular: RRR, strong symmetric radial pulsesLungs: CTAB. Diminished basesAbdomen: Soft, NTNDMusculoskeletal: Normal ROM, normal muscle massGenitourinary: NormalSkin: No rash, lesionsNeuro: AAOx3, no focal deficitsPsych: Normal affectLABS - reviewed pertinent labs as below:CBC BMP PT/INRWBC (10*3/?L)Date Value07/20/2023 4.03 (L)NA (mmol/L)Date Value07/20/2023 139No results found for: "PT"RBC (10*6/?L)Date Value07/20/2023 3.72 (L)K (mmol/L)Date Value07/20/2023 3.2 (L)No results found for: "PTINR"PLT (10*3/?L)Date Value07/20/2023 242CALCIUM (mg/dL)Date Value07/20/2023 9.3HGB (g/dL)Date Value07/20/2023 11.3 (L)CL (mmol/L)Date Value07/20/2023 101aPTTHCT (%)Date Value07/20/2023 34.9 (L)BUN (mg/dL)Date Value07/20/2023 10No results found for: "APTTPAT"CREATININE (mg/dL)Date Value07/20/2023 0.67IMAGING - reviewed, pertinent results as below:Hospital Encounter on 07/20/23CT CHEST PULMONARY ANGIOGRAMNarrativeEXAM: CT CHEST PULMONARY ANGIOGRAMCLINICAL INDICATION: 73 years old Female with has known PE and nowworsening CPComparison: CT pulmonary angiogram dated 07/14/2023TECHNIQUE: Volumetric helical CT angiogram was performed of the chest (lungapices to bases) with IV contrast. Images were reconstructed at 1.25 mmslice thickness. Axial MIPs, as well as coronal and sagittal MPRs weregenerated and reviewed.FINDINGS:Devices: NoneHEART AND GREAT VESSELS: The opacification of the pulmonary vasculature isappropriate. Two nonoccluding filling defects are redemonstrated in theanterior basal left pulmonary arterial branches. The pulmonary trunk isnormal in caliber.The thoracic aorta is normal in caliber with mild atheroscleroticcalcifications. Mild vascular calcifications of the proximal LAD areredemonstrated.There are mild calcifications of the coronary vessels.The heart is normal in size. No pericardial abnormalities are identified.The RV to LV is normal.MEDIASTINUM AND LOWER NECK: No central airway lesions are detected. Dilatedproximal esophagus, secondary to aerophagia, is noted. The included thyroidgland appears normal.LYMPH NODES: No evidence of intrathoracic lymphadenopathy.LUNGS AND PLEURA: The lungs are well-expanded . Interval development ofbibasal groundglass and linear opacities. Several scattered calcifiedgranulomas are demonstrated. Mild paraseptal emphysematous changes arenoted. No suspicious nodules. No pleural abnormality detected.VISUALIZED UPPER ABDOMEN: Two left renal cysts are redemonstrated,measuring 6.6 and 3.3 cm.OSSEOUS STRUCTURES AND SOFT TISSUES: No acute osseous abnormality.Degenerative spondylotic changes of the thoracic spine are redemonstrated,in the form of osteophytosis, subchondral sclerosis, and joint space loss.Schmorl's nodes are noted in T11-L1 levels.Impression1. Two nonocclusive subacute chronic pulmonary emboli in the anterior basalleft lung pulmonary arteries. No new pulmonary emboli.2. Interval development of bibasilar groundglass opacities, likelyrepresenting mild pulmonary edema, however, an infectious process cannot beexcluded.3. Mild paraseptal emphysema.4. Incidental left renal cysts.AIDOC (computer aided detection software) confirms no filling defects inthe pulmonary artery branches.Preliminary Report Dictated by Resident: Sherwin Munguia, Stuart Mcdermott MD., have reviewed this study and agree withthe above report.ASSESSMENT/PLANYamile Roqueen 73 year old maleChest pain Atypical angina likely due to viral pneumonia versus mild pulmonary edemaTrend troponin negative x 2We'll order pain control, oxygen, and nitroglycerin when necessaryConsult Cardiology Dr. Bolden,Will appreciate their further input and recommendationsDaily ASASupportive care ProtonixFor stress test for tomorrow patient will be n.p.o. after midnight and no caffeine per collaborating with Dr. Bolden cardiologyPneumoniaZithromax 500 mg x 3 doses along with ceftriaxone 1 gram dailyPatient on room airO2 if needed, wean as soon as possiblePulmonary embolusPatient takes Eliquis just started--1 weeks agoEducated patient that she will need to take Eliquis for at least 3 monthsDenies recent travel, surgeries or leg or calf painHTNResume home amlodipine 10 mg, Coreg 25 mg twice daily, hydralazine 10 mg twice dailyHLDAtorvastatin 25 mg dailyProphylaxis: DVT- EliquisStress Ulcer: no indication for prophylaxisAdvanced Care Planning (Z71.89)Above assessment and plan discussed at length with patient, patient expressed full understanding. Questions and concerned addressed, I spent 18 minutes discussing the advance care plan.Surrogate decision maker: selfLevel of care expected after discharge: IndependentCode status: Full codeSmoking Cessation: (Z71.6)Tobacco user?: noneObservationTexas GRAPHIC ILLUSTRATOR was viewed during this stayTanya Renetta Kimble, FNP ssociated attestation - Lucina Pineda MD - 07/21/2023 11:33 AM CDT I performed a substantial part of the MDM during this patient's hospital visit. I personally made or approved the documented management plan and acknowledge its risk of complications. I agree with the findings and documentation provided in the KIERAN's notes. Patient is a 73 y/o F with a PMH of HTN, HLD, suspected CAD, recent pulmonary emboli and depression who presented with atypical chest pain and pneumonia. ECG was negative for acute changes. I agree with IV ceftriaxone, PO azithromycin, telemetry, serial troponins and cardiology consult. Medicine team will continue to provide daily care.Lucina Pineda MD 07/21/2023 11:15 [id number] and physical [id number], Jelani1.2.840.114442.1.13.104.2.7.2.445508 RbulpqKcouncKQ5554-63-50C23:33:57History and physical noteTXT1.2.840.224794.1.13.104.2.7.2.23289 9|[id number] for patient zgki80326-8Xwywrxl and physical noteLNNARRATIVEFormatted C-CDA narrative text[address] Kd[id number] INYTENIWXECLOZUG4602-60-63U91:33:571.2.840 .947638.1.72.3.15|1.2.840.799322.1.13.104. 2.7.2.727879_[id number] [facility] [place] 2023-07-14 05:42:00 WF08/4/UusqCQBcwSp52 4kGxTPFJ4Y+f+LSZBRSHiz ldcPBT5RjBNwg+0IuLGv/S2235-98-28D86:42:00F ormatting of this note is different from the original.Medicine History & PhysicalDate of Service: 4Pt presents from: HomeCC: Chest painHistory of Present Illness:Yamile Daugherty is a 73 year old female with a PMH of hypertension, hyperlipidemia who presented to the ED for 3 days of chest pain. It comes and goes spontaneously, not associated with exertion. It started on the right side of her chest, but is. Moved to the left-sided chest. It is reproducible with palpation and taking a deep breath. It is associated with nausea. She denies fever, chills, cough, lower extremity swelling.ROS: Pt denies fever / chills / nausea / vomiting / diarrhea / constipation // cough / abdominal pain / dysuria / hematuria / melena / hematochezia / rashes / suicidal or homicidal ideation / All others negativeReview of Hx/Meds:No current facility-administered medications on file prior to encounter.Current Outpatient Medications on File Prior to EncounterMedication Sig Dispense Refillamoxicillin 500 mg capsule Take 1 capsule by mouth in the morning and 1 capsule at noon and 1 capsule in the evening.hydrALAZINE 10 mg tablet Take 1 tablet by mouth in the morning and 1 tablet in the evening. 60 tablet 0atorvastatin 20 mg tablet Take 1 tablet by mouth at bedtime.amLODIPine 10 mg tablet Take 1 tablet by mouth in the morning. 1aspirin 325 mg tablet Take 1 tablet by mouth in the morning.carvedilol 25 mg tablet Take 1 tablet by mouth in the morning and 1 tablet in the evening. 1irbesartan-hydrochlorothiazide 300-12.5 mg per tablet Take 1 tablet by mouth in the morning.I have reviewed the patient's home medicationsPMH:Past Medical History:Diagnosis DateDepressionHeart murmurHypertensionPSH: has a past surgical history that includes cyst excision and tubal ligation.Family Hx:Social HistoryTobacco UseSmoking status: NeverPassive exposure: NeverSmokeless tobacco: NeverSubstance Use TopicsAlcohol use: Not CurrentlyDrug use: NeverCurrent Scheduled Medications Current IVCurrent Facility-Administered Medications:acetaminophen (TYLENOL) tablet 650 mg, 650 mg, Oral, Q6HPRN, Kaushik Rosen MDamLODIPine (NORVASC) tablet 10 mg, 10 mg, Oral, DAILY, Kaushik Rosen MDatorvastatin (LIPITOR) tablet 20 mg, 20 mg, Oral, QHS, Kaushik Rosen MDcarvediloL (COREG) tablet 25 mg, 25 mg, Oral, BID, Kaushik Rosen MDenoxaparin (LOVENOX) injection 40 mg, 40 mg, Subcutaneous, DAILY, Kaushik Rosen MDFENTanyl PF (SUBLIMAZE (PF)) injection 50 mcg, 50 mcg, Slow IV Push, Q3HPRN x 24 Hours, Kaushik Rosen MDhydrALAZINE (APRESOLINE) tablet 10 mg, 10 mg, Oral, BID, Kaushik Rosen MDKCL (KLOR-CON M20) tablet 40 mEq, 40 mEq, Oral, ONCE, Kaushik Rosen MDnitroglycerin (NITROSTAT) sublingual tablet 0.4 mg, 0.4 mg, Sublingual, Q5MIN PRN, Kaushik Rosen MDtraMADoL (ULTRAM) tablet 50 mg, 50 mg, Oral, Q8HPRN, Kaushik Rosen MDsodium chloride (NS) injection 5 mL, 5 mL, Intravenous, PRN, Jade Lopez, RABIAPObjective:Vitals:Vitals:07/14/23 0100 07/14/23 0333 07/14/23 0700 07/14/23 0729BP: (!) 156/80Pulse: 58Resp: 14 14Temp: 36.6 ?C (97.8 ?F) 36.2 ?C (97.2 ?F) 36.7 ?C (98 ?F)TempSrc: Temporal Artery Temporal Artery Temporal ArterySpO2: 99% 100%Weight: 162 lb (73.5 kg)Height:I/O's:No intake or output data in the 24 hours ending 07/14/23 0842Physical Exam:Constitutional: A&O x3, well-developed, well-nourished, and in no distress.Head: Normocephalic and atraumatic.Eyes: PERRL. Conjunctivae and EOM are normal.Neck: Normal range of motion. Neck supple. No JVD present.Cardiovascular: Normal rate, regular rhythm, normal heart soundsPulmonary/Chest: Effort normal and breath sounds normal. No respiratory distress. No wheezes, rales or rhonchi.Abdominal: Soft. Bowel sounds are normal. No TTP, non-distended and no masses. No rebound or guarding.Musculoskeletal: Normal range of motion. No edema or tenderness.Lymphadenopathy: No cervical adenopathy.Neurological: A&O x3. No focal deficits. Gait normal.Skin: Skin is warm and dry. No rash noted. No erythema. No pallor.Labs:BMP:BMPNA (mmol/L)Date Value07/13/2023 47820 36169/ 3564310/06/2021 141K (mmol/L)Date Value07/13/2023 3.2 (L)06/28/2023 3.0 (L)06/16/2023 3.606/ 4.1CALCIUM (mg/dL)Date Value07/13/2023 9.103/01/2024 9.002/ 9.106/ 9.9CL (mmol/L)Date Value07/13/2023 03168/01/2024 30127 110 (H)10/06/2021 101BUN (mg/dL)Date Value07/13/2023 1003/01/2024 1202 1506/ 15CREATININE (mg/dL)Date Value07/13/2023 0.7203 0.77006/16/2023 0.77010/06/2021 0.78GLUCOSE (mg/dL)Date Value07/13/2023 9803 118 (H)06/16/2023 7784110/06/2021 97CO2 TOTAL (mmol/L)Date Value07/13/2023 3103/01/2024 31006/16/2023 3006 30CBC:CBCWBC (10*3/?L)Date Value07/13/2023 5.17RBC (10*6/?L)Date Value07/13/2023 3.84 (L)PLT (10*3/?L)Date Value07/13/2023 244HGB (g/dL)Date Value07/13/2023 11.7HCT (%)Date Value07/13/2023 36.2BMP:Hepatic Function PanelALBUMIN (g/dL)Date Value07/13/2023 4.0T PROTEIN (g/dL)Date Value07/13/2023 8.3 (H)TOTAL BILI (mg/dL)Date Value07/13/2023 0.6ALTv (U/L)Date Value07/13/2023 19AST(SGOT) (U/L)Date Value07/13/2023 27ALK PHOS (U/L)Date Value07/13/2023 123 (H)Troponin:Recent Labs215503IGTHLP 0.004I have reviewed all relevant labsImaging:XR CHEST 1 VWResult Date: 07/13/2023HEST X-RAY AP PORTABLE 07/13/2023 9:48 PM Ordering physician: JADE LOPEZ CLINICAL INFORMATION: Chest pain COMPARISON: Chest x-ray dated 06/28/2023 TECHNIQUE: single AP view of the chest was submitted. FINDINGS: Persistent bilateral subcentimeter calcified granulomas. The lungs are otherwise clear. No pleural effusions. No pneumothorax. Calcification to the thoracic aorta. The cardiomediastinal silhouette is within normal limits. No acute radiographic bony abnormalities.1. Residual from previous granulomatous disease of the chest. Otherwise, No radiographic evidence to acute cardiopulmonary disease. RL: 2822 HS:Y XR CHEST 1 VWResult Date: 06/28/2023ORDERING PHYSICIAN: CHRIS ACOSTA HISTORY: cough TECHNIQUE: frontal chest x-ray, 1 view. COMPARISON EXAMINATIONS: 04/04/2023 FINDINGS: The cardiomediastinal silhouette does not appear enlarged. There is no evidence for pneumothorax. There is no evidence for pleural effusion. No focal airspace infiltrates are identified. The pulmonary vascularity appears within normal limits allowing for technique. A few subcentimeter calcified granulomas are noted involving the left lung, largest measuring 3 mm. The osseous structures appear intact.1. No evidence for acute cardiopulmonary process. 2. Old granulomatous disease. [facility]: [id number] End of Report Assessment and plan:Principal Problem:Chest pain, unspecified typeTroponin negative x 2. EKG normal. Chest x-ray shows granulomatous disease. T4 within normal limits.- Rule out pulmonary embolismHypertensionResume home regimen of amlodipine 10, Coreg 25 mg twice daily, hydralazine 10 mg twice dailyHyperlipidemiaAtorvastatin 20DVT prophylaxis: SQHAdvanced Care Planning ( Z71.89 )Above assessment and plan discussed at length with patient, patient expressed full understanding. Questions and concerns addressed I spent 18 minutes discussing the advance care planning.Advanced Directive Maker: SelfLevel of comfort: N/ACode Status: FullTobacco user (Z71.6)Patient counseled at length and Pt expressed full understanding, Time discussed 3 minutesDisposition: Admit to observation Signed:Kaushik Rosen MD07/14/2023 25232-8Qgsvxao and physical ovaxFL9067-40-12Z34:48:30History and physical noteTXT1.2.840.028840.1.13.104.2.7.2.05074 9|[id number] for patient qovr26204-9Kxunzce and physical noteLNNARRATIVEFormatted C-CDA narrative text[address] JwcqDgutjiefaTefcgcvulRZCK5992498941GBWYBM ZIGUTIKUFDNFPPQA4033-63-19V79:48:301.2.840 .317150.1.72.3.15|1.2.840.629500.1.13.104. 2.7.2.727879_[id number] [facility] Notes Date/Time Note Provider Source 2023-07-24 12:26:06 Da06eiRqYbLdCC/Ixw/4bhkRdrWrKJ+p/fXemb ibQOni04frduIbZJZH4/327yvC1227-26-55G2 2:26:06 TRANSITIONAL CARE MANAGEMENT ASSESSMENT07/24/2023Yamile DaughertyZfvxctz651062NUzwda Thor Daugherty is a 73 year old Black or female was admitted on 07/20/23 to [facility]. She was discharged on 07/23/23 with discharge disposition of HR- Routine Discharge.Admitting Physician: Lupillo Pineda Diagnosis: atypical chest pain, pneumonia and kalemiaNo linked episodesTCM Gwb-fswf-cg-face outreach documentation:Discharge AssessmentChart Assessed: 07/24/23TCM Outreach Completed: 07/24/23Do you have a few minutes to speak with me about how you are doing at home?: Yes (pt reports she feels "a little better".)Discharge InstructionsDo you understand your at-home instructions?: YesMedicationsHave you filled your prescriptions and do you have them in your home? : YesDo you know how to take your medications?: YesCan you provide me with the names or descriptions of any uzke-dih-zwzmvpi or supplements you are currently taking?: Yes (Tylenol)SuppliesDid you receive applicable home medical supplies/equipment?: N/AFollow Up AppointmentHas a follow up appointment been scheduled?: No (pt also needs to schedule an appt with Cardiology appt. Email sent to [facility] clinic scheduling.)May I assist with scheduling this appointment?: Patient has outside PCPDo you have any questions about your follow up appointments?: NoAre you able to get to your appointment? Who will be taking you?: Yes (pt will find ride)Home Health AssistanceHas the home health nurse contacted you since you've been home?: N/ASurvey - RecognitionIs there anything you would like to share about your recent hospitalization, or anyone you would like to recognize?: NoDo you have any suggestions for improvement?: NoDo you have any other questions or concerns at this time?: NoFuture Appointments: 53568-3Ezcetsmqg encounter TqevSJ4189-91-99B69:26:59Telephone encounter NoteTXT1.2.840.796144.1.13.104.2.7.2.7 56967|[id number] for patient ucbv98449-3GytmKYCGYFVCHJYEcsiuuhmx C-CDA narrative oiky139172922Rdqnqb L Venus BROWN[id number] PHYENFLOPPDRXQBCVBVI4549-45-27H38:26:5 91.2.840.084440.1.72.3.15|1.2.840.1143 50.1.13.104.2.7.2.727879_[id number] Gracia Choe Venus TIM [facility] 2023-07-23 14:04:40 KDbcLeIiofcAi9GGMx2KrSsPCg0+42Y7F+/pQj lVB3x7ac31VM5MkQyAdFg+ivTn0959-08-90X1 4:04:40 Problem: Discharge PlanningGoal: Adequate for dischargeOutcome: Adequate for dischargeGoal: Effective communicationOutcome: Adequate for dischargeProblem: Falls, Risk ofGoal: Absence of fallsOutcome: Adequate for dischargeProblem: PainGoal: Control of pain at or below patient's documented comfort goalOutcome: Adequate for dischargeGoal: Reduction in pain sensationOutcome: Adequate for dischargeProblem: Discharge PlanningGoal: Adequate for dischargeOutcome: Adequate for discharge 23215-7Vxla of care plqjYR3974-94-50A62:04:42Plan of care noteTXT1.2.840.665009.1.13.104.2.7.2.7 23067|[id number] for patient vupu09923-6AeiaRLBNBPQFQZEUinxyysxy C-CDA narrative [id number] Solis RN[id number] TAAYNDOJJPKPONHRRFCX1373-38-77X93:04:4 21.2.840.775652.1.72.3.15|1.2.840.1143 50.1.13.104.2.7.2.727879_[id number] Marleny Solis RN [facility] 2023-07-22 22:51:58 FOGPrfFXk+Su9z/lnXDdCPfRNzD8laJ1AL3VdE lwjWAZ4FQrR3kVwFd5Mj1DAmDp6878-39-56X7 2:51:58 Problem: Discharge PlanningGoal: Adequate for dischargeOutcome: Progressing as expectedGoal: Effective communicationOutcome: Progressing as expectedProblem: Falls, Risk ofGoal: Absence of fallsOutcome: Progressing as expectedProblem: PainGoal: Control of pain at or below patient's documented comfort goalOutcome: Progressing as expectedGoal: Reduction in pain sensationOutcome: Progressing as expectedProblem: Discharge PlanningGoal: Adequate for dischargeOutcome: Progressing as expected 50795-5Zzsx of care vbgnXD4295-17-36F35:52:02Plan of care noteTXT1.2.840.749828.1.13.104.2.7.2.7 62228|[id number] for patient xtsj10268-8NannLIUTYGTFAAPMdlxvlhhv C-CDA narrative qznj349968789Nfpqoi Fuentes RN[id number] QCVIBGXCOGUJESUTRVOW1136-09-51B29:52:0 21.2.840.751328.1.72.3.15|1.2.840.1143 50.1.13.104.2.7.2.727879_[id number] Isabell Medrano RN [facility] 2023-07-22 17:39:02 H3A6I11NRiE2xK8ChHEgRF8zk3gxTlD9xqTLDh EN81b0yD8qplwFHT3Qb9qArLTZ6486-54-94I4 7:39:02 Problem: Discharge PlanningGoal: Adequate for dischargeOutcome: Progressing as expectedGoal: Effective communicationOutcome: Progressing as expectedProblem: Falls, Risk ofGoal: Absence of fallsOutcome: Progressing as expectedProblem: PainGoal: Control of pain at or below patient's documented comfort goalOutcome: Progressing as expectedGoal: Reduction in pain sensationOutcome: Progressing as expectedProblem: Discharge PlanningGoal: Adequate for dischargeOutcome: Progressing as expected 35795-4Rott of care imnsGF1824-36-04O45:39:04Plan of care noteTXT1.2.840.304795.1.13.104.2.7.2.7 17017|9544935617ITKqcvqviqa for patient fdvu40167-4OyddHVPQMWSDMWEAmvhusarm C-CDA narrative [id number] EUVOUGHYZGEJWRMRXKXC4142-34-47L25:39:0 41.2.840.508468.1.72.3.15|1.2.840.1143 50.1.13.104.2.7.2.727879_[id number] [facility] 2023-07-22 05:58:11 d+i8OxgEa7gPZmNqDsx4HASKNFkWwGxAbSG9in AEOl5vTJmuLvkXSOjAFXgQohdI4163-18-00K2 5:58:11 Problem: Discharge PlanningGoal: Adequate for dischargeOutcome: Progressing as expectedGoal: Effective communicationOutcome: Progressing as expectedProblem: Falls, Risk ofGoal: Absence of fallsOutcome: Progressing as expectedProblem: PainGoal: Control of pain at or below patient's documented comfort goalOutcome: Progressing as expectedGoal: Reduction in pain sensationOutcome: Progressing as expectedProblem: Discharge PlanningGoal: Adequate for dischargeOutcome: Progressing as expected 04317-0Bdvl of care jkmoZE0295-63-60I34:58:14Plan of care noteTXT1.2.840.817821.1.13.104.2.7.2.7 41023|[id number] for patient rsnb34841-0YdguOGZZNJRYHLUNhytbwqlt C-CDA narrative [id number] A O'Connor RN[id number] RXUSEJTNVAJVVUYUTMBD0364-35-35R99:58:1 41.2.840.736665.1.72.3.15|1.2.840.1143 50.1.13.104.2.7.2.727879_[id number] Katina Ang RN [facility] 2023-07-21 19:15:37 dOx2mLbhCYPWU1wjqbFF4amAhA1/2OEblTtOXu 75ttdWIshEnjLR7740FjgtiOKI9528-00-24C4 9:15:37 Progressing as expected 81234-9Mrny of care grqjYE3320-69-88B05:15:47Plan of care noteTXT1.2.840.608390.1.13.104.2.7.2.7 89678|2556002380JRAjoyewamk for patient rwwr26747-9KjbcXVRVBDCOQSYHrhxehanj C-CDA narrative [id number] J Hedge RN[id number] VPAWCCTZKMGHVPQXPZYT8152-94-71F87:15:4 71.2.840.407831.1.72.3.15|1.2.840.1143 50.1.13.104.2.7.2.727879_[id number] Kayla Lomeli RN [facility] 2023-07-21 12:55:05 P7WHas4M45oQNx0PnY8bOMSuQPJx/xGnBGwT7z 1I2pAeOnnXWoxjPMhyl+oyarM70619-55-93K7 2:55:05 Problem: Discharge PlanningGoal: Adequate for dischargeOutcome: Progressing as expectedGoal: Effective communicationOutcome: Progressing as expectedProblem: Falls, Risk ofGoal: Absence of fallsOutcome: Progressing as expectedProblem: PainGoal: Control of pain at or below patient's documented comfort goalOutcome: Progressing as expectedGoal: Reduction in pain sensationOutcome: Progressing as expectedProblem: Discharge PlanningGoal: Adequate for dischargeOutcome: Progressing as expected 69080-9Nykt of care njzxDS9612-09-61B56:55:07Plan of care noteTXT1.2.840.284762.1.13.104.2.7.2.7 23285|[id number] for patient tjki27645-9GutcETBMPHPJKDXIvmmoezxv C-CDA narrative tgxr550081371Ezpjpbe B Vanier RN[id number] LQSDEJTXAYDEFTUGNZCL9312-01-67G70:55:0 71.2.840.255887.1.72.3.15|1.2.840.1143 50.1.13.104.2.7.2.727879_[id number] Miryam Romero RN [facility] 2023-07-21 07:49:47 rbWQC81fNkmho9BNvKAhVEe3mAbEhzJSZmt4py s90gcChomVUUbW5z7QLFY+Cuf/1265-93-87O3 7:49:47 Problem: Discharge PlanningGoal: Adequate for discharge07/21/2023 0749 by Noah Cuello RNOutcome: Progressing as expected07/21/2023 020 by Noah Cuello RNOutcome: Progressing as expectedGoal: Effective communication07/21/2023 0749 by Noah Cuello RNOutcome: Progressing as expected07/21/2023 020 by Noah Cuello RNOutcome: Progressing as expectedProblem: Falls, Risk ofGoal: Absence of fallsOutcome: Progressing as expectedProblem: PainGoal: Control of pain at or below patient's documented comfort goalOutcome: Progressing as expectedGoal: Reduction in pain sensationOutcome: Progressing as expectedProblem: Discharge PlanningGoal: Adequate for discharge07/21/2023 0749 by Noah Cuello RNOutcome: Progressing as expected07/21/2023 020 by Noah Cuello RNOutcome: Progressing as expected 05719-5Yawa of care jigiNZ1315-24-38K78:49:52Plan of care noteTXT1.2.840.211659.1.13.104.2.7.2.7 06979|3904191038HGEfdtgwnfo for patient lhuw89667-9NufkGYWFQPMGRCVMkfkslvew C-CDA narrative grxy991486642JackrfNoah Giang[address] EevzMfkakhwufDadvpehsbFDVF1389498087KJ WRSSXBFABMWKOYMREGQG5413-59-61X85:49:5 21.2.840.167562.1.72.3.15|1.2.840.1143 50.1.13.104.2.7.2.727879_[id number] Noah Cuello RN [facility] 2023-07-21 02:06:35 oAZkyo5FLHxBz/1O/piOwpmxOCXXr4U5LPeeL3 g5vJM4wFa2kbR5loo5SLG6Yssc1983-96-81A7 2:06:35 Problem: Discharge PlanningGoal: Adequate for dischargeOutcome: Progressing as expectedGoal: Effective communicationOutcome: Progressing as expectedProblem: PainGoal: Control of pain at or below patient's documented comfort goalOutcome: Progressing as expectedGoal: Reduction in pain sensationOutcome: Progressing as expectedProblem: Discharge PlanningGoal: Adequate for dischargeOutcome: Progressing as expected 79960-6Wfgj of care cjxhVP1193-41-48C50:49:23Plan of care noteTXT1.2.840.803230.1.13.104.2.7.2.7 69377|1438246498YLVjlylvhpb for patient rlkz61153-2PskxRJRGBSNCYLYXidkranmu C-CDA narrative text[address] KlaxEgrnicrrjDozhuuvxjDYEL4581649026HG WGNXAHOUTXEBSBNQAEIN6277-41-62Y90:49:2 31.2.840.723376.1.72.3.15|1.2.840.1143 50.1.13.104.2.7.2.727879_[id number] [facility] 2023-07-20 17:15:03 ZSM5pUVVb38mGzXzOvO6mrmdhh5/Ito7wGBN3z vXdRQQA6yeFDF9LhpvjXCQ3/DZ7977-23-85Y1 7:15:03 Progressing as expected 57462-8Ovfu of care kaptOY5066-35-70M41:15:13Plan of care noteTXT1.2.840.968700.1.13.104.2.7.2.7 36591|5055866328UVIsunnhmjp for patient urig79940-8ZifyYXDIVWGQXHGWdtzqzkol C-CDA narrative textUT[address] [id number] XHSGAYEYMFXMFVZHHXKY1231-13-28H23:15:1 31.2.840.526294.1.72.3.15|1.2.840.1143 50.1.13.104.2.7.2.727879_[id number] [facility] 2023-07-20 09:50:00 b0oo56qYSxEQ4oruEOa7MNC6qJdyoXdwFEVwJU MyIANPj/MFtOKGZ2ILkq0Nkk3I4838-22-87C9 9:50:00 Patient admitted to [place] [address] for diagnosis of chest pain.Patient agrees to admission, discussed plan of care with patient and family.Patient is awake, alert, oriented, resp reg unlabored, color appropriate for race, PIV intact.No adverse reaction to medications administered while in ED.Belongings with patient to unit. 33428-6Obcwtattx department PalzRS6027-91-52K30:53:18Emergency department NoteTXT1.2.840.573242.1.13.104.2.7.2.7 96716|[id number] for patient kesb50851-2WpbtPKHKJKFJHVQJdxdquelk C-CDA narrative hxeu776116070Rjpnqefv C Heredia RNUT[id number] VKJUUROJHUUZWWPAVIHE0398-86-67Q74:53:1 81.2.840.714184.1.72.3.15|1.2.840.1143 50.1.13.104.2.7.2.727879_[id number] Maxine Maria RN [facility] 2023-07-20 09:20:36 p6kxxTTvFNv3hF9VkQ6n0ivIwoHUzODd1T1YcY C36w3r8NASwpc9T2+AYADRJK+F5597-62-36D9 9:20:36 Nurse ReportReport given to janey TIM Toya. Chief complaint, assessment findings, infusion verify and orders reviewed. Plan of care discussed. Patient/family [place] [address]-0Wufqrohtl department BrlsGK9115-20-49U59:21:46[facility] NoteTXT1.2.840.400284.1.13.104.2.7.2.7 43783|[id number] for patient jble21088-6YcdxRFNIFFHEDKSHqtuaxvlq C-CDA narrative text[address] NntuMwxpstmkyTeyuvtbwyFIDV0932382441JQ KTDYATREVVJYXNZQNZAW6280-15-54D28:21:4 61.2.840.325247.1.72.3.15|1.2.840.1143 50.1.13.104.2.7.2.727879_[id number] [facility] 2023-07-20 08:46:44 ua8fKZhTpIhgxNn66VrYEPpQnC07Tn2RP/zEgf JrHWRYS9LL8ocgHmxncT5bDJxs2445-59-87V8 8:46:[address] results.Hospital Encounter on 07/20/23CT CHEST PULMONARY ANGIOGRAMNarrativeEXAM: CT CHEST PULMONARY ANGIOGRAMCLINICAL INDICATION: 73 years old Female with has known PE and nowworsening CPComparison: CT pulmonary angiogram dated 07/14/2023TECHNIQUE: Volumetric helical CT angiogram was performed of the chest (lungapices to bases) with IV contrast. Images were reconstructed at 1.25 mmslice thickness. Axial MIPs, as well as coronal and sagittal MPRs weregenerated and reviewed.FINDINGS:Devices: NoneHEART AND GREAT VESSELS: The opacification of the pulmonary vasculature isappropriate. Two nonoccluding filling defects are redemonstrated in theanterior basal left pulmonary arterial branches. The pulmonary trunk isnormal in caliber.The thoracic aorta is normal in caliber with mild atheroscleroticcalcifications. Mild vascular calcifications of the proximal LAD areredemonstrated.There are mild calcifications of the coronary vessels.The heart is normal in size. No pericardial abnormalities are identified.The RV to LV is normal.MEDIASTINUM AND LOWER NECK: No central airway lesions are detected. Dilatedproximal esophagus, secondary to aerophagia, is noted. The included thyroidgland appears normal.LYMPH NODES: No evidence of intrathoracic lymphadenopathy.LUNGS AND PLEURA: The lungs are well-expanded . Interval development ofbibasal groundglass and linear opacities. Several scattered calcifiedgranulomas are demonstrated. Mild paraseptal emphysematous changes arenoted. No suspicious nodules. No pleural abnormality detected.VISUALIZED UPPER ABDOMEN: Two left renal cysts are redemonstrated,measuring 6.6 and 3.3 cm.OSSEOUS STRUCTURES AND SOFT TISSUES: No acute osseous abnormality.Degenerative spondylotic changes of the thoracic spine are redemonstrated,in the form of osteophytosis, subchondral sclerosis, and joint space loss.Schmorl's nodes are noted in T11-L1 levels.Impression1. Two nonocclusive subacute pulmonary emboli in the anterior basal leftlung pulmonary arteries. No new pulmonary emboli.2. Interval development of bibasilar groundglass opacities, likelyrepresenting mild pulmonary edema, however, an infectious process cannot beexcluded.3. Mild paraseptal emphysema.4. Incidental left renal cysts.AIDOC (computer aided detection software) confirms no filling defects inthe pulmonary artery branches.Preliminary Report Dictated by Resident: Sherwin AndrewRecent Results (from the past 24 hour(s))CBC WITH DIFFCollection Time: 07/20/23 6:53 AMResult Value Ref RangeWBC 4.03 (L) 4.30 - 11.10 10*3/?LRBC 3.72 (L) 3.93 - 5.25 10*6/?LHGB 11.3 (L) 11.6 - 15.0 g/dLHCT 34.9 (L) 35.7 - 45.2 %MCV 93.8 80.6 - 95.5 fLMCH 30.4 25.9 - 32.8 pgMCHC 32.4 31.6 - 35.1 g/dLRDW-SD 47.8 39.0 - 49.9 fLRDW-CV 13.8 12.0 - 15.5 %PLT 242 166 - 358 10*3/?LMPV 10.2 9.5 - 12.9 fLNRBC/100 WBC 0.0 0.0 - 10.0 /100 WBCsNRBC x10^3 <0.01 10*3/?LGRAN MAT (NEUT) % 36.6 %IMM GRAN % 0.00 %LYMPH % 45.9 %MONO % 8.4 %EOS % 7.9 %BASO % 1.2 %GRAN MAT x10^3(ANC) 1.47 (L) 1.88 - 7.09 10*3/uLIMM GRAN x10^3 <0.03 0.00 - 0.06 10*3/uLLYMPH x10^3 1.85 1.32 - 3.29 10*3/uLMONO x10^3 0.34 0.33 - 0.92 10*3/uLEOS x10^3 0.32 0.03 - 0.39 10*3/uLBASO x10^3 0.05 0.01 - 0.07 10*3/uLELLIPTO/OVAL 2+ (A) (none)SPHEROCYTES 1+ (A)REACT LYMPHS RareGIANT PLATELETS Present (A) (none)COMP. METABOLIC PANEL (38230)Collection Time: 07/20/23 6:53 AMResult Value Ref RangeNA 139 135 - 145 mmol/LK 3.2 (L) 3.5 - 5.0 mmol/LCL 101 98 - 108 mmol/LCO2 TOTAL 34 (H) 23 - 31 mmol/LAGAP 4 2 - 16BUN 10 7 - 23 mg/dLGLUCOSE 115 (H) 70 - 110 mg/dLCREATININE 0.67 0.50 - 1.04 mg/dLTOTAL BILI 0.6 0.1 - 1.1 mg/dLCALCIUM 9.3 8.6 - 10.6 mg/Guillermo PROTEIN 8.0 6.3 - 8.2 g/dLALBUMIN 3.9 3.5 - 5.0 g/dLALK PHOS 128 (H) 34 - 122 U/LALTv 17 5 - 35 U/LAST(SGOT) 29 13 - 40 U/LeGFR 93.6 mL/min/1.15v4VaxlfgvvvZwinwqwuli Time: 07/20/23 6:53 AMResult Value Ref RangeMAGNESIUM 1.7 1.7 - 2.4 mg/dLTROPONIN ICollection Time: 07/20/23 6:53 AMResult Value Ref RangeTROPONIN I 0.004 <=0.034 ng/mLN-TERMINAL PRO-BNPCollection Time: 07/20/23 6:53 AMResult Value Ref RangeNT-proBNP 167 <=125 pg/mLWill start on abx to cover healthcare associated pneumonia as pt recently admitted. PT to be obs.Diagnosis: Chest pain, concern for pneumonia. 89849-0Feaeinani department RxnaXU9801-84-51J43:47:23Emergency department NoteTXT1.2.840.676220.1.13.104.2.7.2.7 40574|[id number] for patient vafv97737-4Ayzkseyvz department NoteLNNARRATIVEFormatted C-CDA narrative textEMCARE EMERGENCY PHYSICIAN STAFFEMCARE EMERGENCY PHYSICIAN STAFF[address] Pnfy[id number] AYECVRXPAWGEMTRTDWVP1589-37-46M72:47:2 31.2.840.766032.1.72.3.15|1.2.840.1143 50.1.13.104.2.7.2.727879_[id number] [facility] 2023-07-20 07:45:45 smCRijNeaIJAVK7SDztdcmpQk/YRrn+tL1N3/C W9QAwJsr2Bj5mxcyY1ljZfwoXg7293-05-14R3 7:45:45 Received s/o from Dr. Levy. Awaiting ct chest results. Pt resting comfortably and states cp is 2/10. [address]-0Gbqfivokx[address] SrsmWL8205-09-31U04:46:05[facility] NoteTXT1.2.840.283840.1.13.104.2.7.2.7 18198|[id number] for patient bebk19869-0Pckgftfsx department NoteLNNARRATIVEFormatted C-CDA narrative [id number] CLCGRHSTUPZAMAFRCRYU0184-52-45F19:46:0 51.2.840.785216.1.72.3.15|1.2.840.1143 50.1.13.104.2.7.2.727879_[id number] [facility] 2023-07-20 07:02:29 SEzG3mP9amh5PNeMnA2RHTDdwcyPrLO9ESZXs5 kqS0G4LolT7sEwfbVb27je8K348874-24-36C8 7:02:29 Report given to Maxine TIM [address]-7Erlvmfwyn[address] VchhET9479-71-11I05:02:43[facility] NoteTXT1.2.840.801933.1.13.104.2.7.2.7 40513|[id number] for patient rccm62557-0ClqcHUMLZWAOUVJLfwhaycff C-CDA narrative [id number] QGXNFBYIZNFGUFLJLYGO3630-36-42Q86:02:4 31.2.840.433923.1.72.3.15|1.2.840.1143 50.1.13.104.2.7.2.727879_[id number] [facility] 2023-07-20 06:43:09 haQ7ioM8NxfXJ+KXv29WM7yIHkes1bUS8VnWz5 fwHxnr4fuZ3+naHg+6zxJbKmYK6426-73-35M7 6:43:09 Pt arrived by [facility] with c/o right sided chest pain that began this morning. EMS placed 20G in the RAC. No medications taken this morning. Vital stable upon arrival. 66267-9Dzvjounlq department Triage aiatNB6091-95-12K41:46:06[facility] Triage noteTXT1.2.840.973578.1.13.104.2.7.2.7 24106|[id number] for patient ystw65998-2Hmlgrcjty department NoteLNNARRATIVEFormatted C-CDA narrative [id number] A Diaz RN[id number] HOLKWKNWEVZTSBJZLDSU5616-48-09I99:46:0 61.2.840.537217.1.72.3.15|1.2.840.1143 50.1.13.104.2.7.2.727879_[id number] Kierra Wylie RN [facility] 2023-07-20 06:37:00 uO010Ag7IsxTvi6QbxAJCLAg4nZk73akfs8s5Y W0+Bc18EqJh8LW9xE85Ew4j1l03454-29-78P3 6:37:00Associated Order(s): EKG-12 Lead ROUTINE ONCEPre-Procedure Diagnose(s): Chest pain, unspecified typePost-Procedure Diagnose(s): Chest pain, unspecified type [facility] Emergency Department NotePatient Name: Yamile Thibodeaux of : 1950 73 year old femaleTreatment Room: OH5/YY7Hljfyud Record Number: [id number] Care Physician: Sheng AbrahamPatient Escorted by: Self [9]Mode of Arrival: EMS - [facility] ([place]) [43]EMS Treatment Prior to ED Arrival:[employer] treatment: Saline lockTravel and Exposure Screening:SymptomsDoes patient have any of these symptoms?: (not recorded)Exposure ScreeningHas patient had contact with someone with a communicable disease in the last month?: (not recorded)Diseases exposed to:: (not recorded)Is Patient ?: (not recorded)Exposure Date: (not recorded)Chief Complaint:Chief ComplaintPatient presents withChest PainRight sideHistory of Present Illness:The patient presents from home with EMS for evaluation for right-sided chest pain that started intermittently yesterday and then became more constant and strong this morning. She denies any injury or trauma. No fevers or chills. No cough or URI symptoms. No change in the pain with exertion or deep breathing. No medications tried at home for her symptoms. She reports history of high blood pressure but no diabetes or high cholesterol. She does not smoke. She was seen here several days ago and diagnosed with a pulmonary embolism. She was started on Eliquis and admits to compliance with that. No nausea or vomiting. No change in her pain with movement of her right arm.Here for evaluation.Past Medical History/Immunizations:Past Medical History:Diagnosis DateDepressionHeart murmurHypertensionTetanus received in last 5 years: NoChildhood immunizations: Nz-ni-aoprCzltgesux:No Known AllergiesPast Social History:Tobacco UseNever smoked or used smokeless tobacco.Passive Exposure: NeverAlcohol UseNot Currently.Drug UseNever.Sexual ActivitySexually active; Partners: Male.Past Surgical History:Past Surgical History:Procedure Laterality DateCYST EXCISIONwrist leftTUBAL LIGATIONReview of Systems:Review of SystemsConstitutional: Negative for chills and fever.Respiratory: Negative for cough and shortness of breath.Cardiovascular: Positive for chest pain.Gastrointestinal: Negative for abdominal pain and vomiting.Genitourinary: Negative for dysuria.Musculoskeletal: Negative for arthralgias, neck pain and neck stiffness.Skin: Negative for wound.Neurological: Negative for dizziness.Psychiatric/Behavioral: Negative for agitation.Endocrine: Negative for goiter.Physical Exam:ED Triage Vitals [07/20/23 0642]Weight 77.1 kg (170 lb)Actual or estimated Estimated by patient/family reportHeight 1.753 m (5' 9")BP (!) 170/78Pulse 62Resp 18Temp 36.9 ?C (98.5 ?F)Temp source OralSpO2 96 %Measured on Room airPhysical ExamVitals and nursing note reviewed.Constitutional:Appearance: Normal appearance.HENT:Head: Normocephalic and atraumatic.Mouth/Throat:Mouth: Mucous membranes are dry.Cardiovascular:Rate and Rhythm: Normal rate and regular rhythm.Pulses: Normal pulses.Pulmonary:Effort: Pulmonary effort is normal. No respiratory distress.Breath sounds: No stridor. No wheezing or rhonchi.Chest:Chest wall: Tenderness (Mild right-sided anterior chest wall tenderness with palpation) present.Abdominal:General: There is no distension.Palpations: Abdomen is soft.Tenderness: There is no abdominal tenderness. There is no guarding.Musculoskeletal:General: Normal range of motion.Cervical back: Normal range of motion and neck supple.Skin:General: Skin is warm and dry.Neurological:General: No focal deficit present.Mental Status: She is alert and oriented to person, place, and time.Radiology:No orders to displayLab Results:Lab Results - No data to displayEKG:If EKG completed, see Procedure Note.Orders and Treatments:Orders Placed This EncounterProceduresCT CHEST PULMONARY ANGIOGRAMCBC WITH DIFFCOMP. METABOLIC PANEL (47697)MagnesiumTROPONIN IN-TERMINAL PRO-BNPNo orders of the defined types were placed in this encounter.First Provider Eval:ED EventsDate/Time Event User Ckdxviqx46/01/24 0652 Medical Screening Begins SHARI LEVY DO --07/20/23 06 First Provider Evaluation SHARI LEVY DO --ED COURSEDiagnosis/Impression as of 07/20/23 0700Chest pain, unspecified typeProcedures:EKG-12 Lead ROUTINE ONCEDate/Time: 07/20/2023 6:57 AMPerformed by: Shari Levy DOAuthorized by: Shari Levy DOECTrent interpreted by ED Physician in the absence of a helper coordinator: yesInterpretation:Interpretation: normalRate:ECG rate: 61ECG rate assessment: normalRhythm:Rhythm: sinus rhythmEctopy:Ectopy: noneQRS:QRS axis: NormalQRS intervals: NormalQRS conduction: normalST segments:ST segments: NormalT waves:T waves: normalQ waves:Abnormal Q-waves: not presentMDM:Medical Decision MakingThe patient presents from home with EMS for evaluation for right-sided chest wall pain that was intermittent yesterday and has become more constant and stronger today. She denies any injury or trauma. No radiation of the pain to her back, neck or jaw. No association of the pain with exertion, deep breathing or movement of her right arm. No shortness of breath. No cough or URI symptoms. No medications taken for pain. She was seen here recently and diagnosed with a pulmonary embolism and started on Eliquis. She admits to compliance with her medication. She also reports history of high blood pressure but no diabetes or high cholesterol. She does not smoke.Vital signs are stable in ER.Her heart is regular rhythm.Her lungs are clear bilaterally.She does have right-sided anterior chest wall tenderness with palpation.Her EKG shows a normal sinus rhythm, no STEMI.The patient does have risk factors for ACS however her presentation is atypical for this.Will monitor the patient here in telemetry.Will check laboratory studies including troponin and repeat a CT of her chest to evaluate for possible worsening of her known pulmonary embolism.The patient is signed out to Dr. Harris pending laboratory studies as well as imaging results and final disposition.Problems Addressed:Chest pain, unspecified type: acute illness or injuryAmount and/or Complexity of Data ReviewedLabs: ordered.Flowsheet Documentation:Scoring Tools:No data recordedDisposition/Condition:ED DispositionNoneDischarge Medications:Patient's MedicationsSTART taking these medicationsNo medications on fileCONTINUE taking these medications which have NOT CHANGEDAMLODIPINE 10 MG TABLET Take 1 tablet by mouth in the morning.APIXABAN 5 MG TABLET Take 2 tablets by mouth in the morning and 2 tablets in the evening. Do all this for 7 days. Indications: a clot in the lungAPIXABAN 5 MG TABLET Take 1 tablet by mouth in the morning and 1 tablet in the evening. Do all this for 21 days. Indications: a clot in the lungATORVASTATIN 20 MG TABLET Take 1 tablet by mouth at bedtime.CARVEDILOL 25 MG TABLET Take 1 tablet by mouth in the morning and 1 tablet in the evening.HYDRALAZINE 10 MG TABLET Take 1 tablet by mouth in the morning and 1 tablet in the evening.IRBESARTAN-HYDROCHLOROTHIAZIDE 300-12.5 MG PER TABLET Take 1 tablet by mouth in the morning.START taking Modified Medications as PrescribedNo medications on fileSTOP taking these medicationsNo medications on fileFollow-up:Electronically signed by:Shari Levy DO07/20/23 0700 98438-7Uaiyaaeiu Emergency department GyvuHF8634-76-08P32:00:40Physician Emergency department NoteTXT1.2.840.037003.1.13.104.2.7.2.7 06464|[id number] for patient uegs41564-3Vxzbqvssw department NoteLNNARRATIVEFormatted C-CDA narrative louisa[address] StreetQv[id number] VCDEULDMIMHLUJXWCFRG6157-85-54J87:00:4 01.2.840.016717.1.72.3.15|1.2.840.1143 50.1.13.104.2.7.2.727879_[id number] [facility] 2023-07-17 10:59:42 EwhsrMgXmT8mg1hrcDtzvMzRdCS/EAZjsDJ0Fw hXvYobMM/18QW90r/cN8Fiy0+H8693-06-36F8 0:59:42 Can Rx PRN NTGNuclear stress test ordered 89901-3Rwyardema encounter AfxuIZ9770-39-58Y04:00:00Telephone encounter NoteTXT1.2.840.011515.1.13.104.2.7.2.7 97492|[id number] for patient cyrj62749-5BuvsLLKGEEQDPQOThgnaccey C-CDA narrative text[id number] UKKBWOVFLNBOQVIIROIR7953-28-57Q35:00:0 01.2.840.444504.1.72.3.15|1.2.840.1143 50.1.13.104.2.7.2.727879_[id number] [facility] 2023-07-17 10:32:51 tDKLBsVLiyvl+8pLd/5ycv/oKbl6TIDhpoQgIr J2l9+pUqmMjNVRmHwIhMt7E41L5382-20-55U5 0:32:51 Will route to . Unsure if asking for NTG. Or if a candidate for that Rx. 46126-1Zqlkhuxnc encounter UrffOU9091-36-91Z83:33:18Telephone encounter NoteTXT1.2.840.956154.1.13.104.2.7.2.7 42125|[id number] for patient uiqo89231-4LoweOFLDKUAUDPSTwqjchskb C-CDA narrative [id number] LOPEZ[id number] FKIXYQUTDYEZHAQIWSDB8596-92-47I41:33:1 81.2.840.361454.1.72.3.15|1.2.840.1143 50.1.13.104.2.7.2.727879_[id number] Mackenzie Krueger MA [facility] 2023-07-16 10:50:51 TPFUI8JNO1IAXMdvxaVBJirQ7FDOj6t+uHcDKp tcVcHbHz5jjfbTWWEer+3CQbI48552-80-29N0 0:50:51 Patient was seen in the hospital for chest pain. Will get Lexiscan nuclear stress test to assess ischemia. 61694-9Tpaeludsc encounter VwufRK6631-41-47L91:51:54Telephone encounter NoteTXT1.2.840.300024.1.13.104.2.7.2.7 10437|[id number] for patient xiya06085-9MraeBTBRSCOBCEUNmvffochh C-CDA narrative text[address] Ge[id number] BTHSMPRRLQBTIJZOEWDS5124-69-67D39:51:5 41.2.840.529532.1.72.3.15|1.2.840.1143 50.1.13.104.2.7.2.727879_[id number] [facility] 2023-07-16 10:42:05 P8Ot6MjWVSO28uSeN5TxTBnEbx3UyjJk4chiHu WT5djx+WfdbWFyr3K5AOBmQIUm8553-47-81N3 0:42:05 Copied from [facility] #[id number]. 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 wrote:Yamile Daugherty is a 73 year old female is calling and states she saw MD Bolden in hospital and has questions about what medicine she can take with eliquis if she has chest pain or what to do if she has chest pain.Pt states she has no symptoms at this time.[phone] (home) 40283-1Jogobhlfh encounter ToftRM5166-16-63H68:42:30Telephone encounter NoteTXT1.2.840.357590.1.13.104.2.7.2.7 57501|[id number] for patient wkae34474-7PqfgBDETJKLEKUAKzvdgpdqs C-CDA narrative [id number] C Garcia[address] GrmfWakldiwprYeutftuwnSXTB5633813187PF UIWEEZSQPZWHVNHNRMJE5080-02-96Z52:42:3 01.2.840.524676.1.72.3.15|1.2.840.1143 50.1.13.104.2.7.2.727879_[id number] Rachel Hi [facility] 2023-07-16 09:23:24 9XVlK9Q0EY48PNupIDSq1L1I4Jf89gJV/6j3Ns dKBbc0noMMPP6DyR2+/hBZa7WQ6937-93-98E8 9:23:24 TRANSITIONAL CARE MANAGEMENT ASSESSMENT07/16/2023Yamile DaughertyLfersak825449WFojbq Thor Daugherty is a 73 year old Black or female was admitted on 07/13/23 to [facility] ICU. She was discharged on 07/15/23 with discharge disposition of HR- Routine Discharge.Admitting Physician: Mario Rosen Diagnosis: Chest pain, unspecified typeNo linked episodesTCM Lyq-yodk-mx-face outreach documentation:Discharge AssessmentChart Assessed: 07/16/23TCM Outreach Completed: 07/16/23Do you have a few minutes to speak with me about how you are doing at home?: Yes (Pt reports doing "Good".)Discharge InstructionsDo you understand your at-home instructions?: YesMedicationsHave you filled your prescriptions and do you have them in your home? : YesDo you know how to take your medications?: Yes (Pt inquiring if okay to take ASA for chest discomfort. CM advised to taky Tylenol instead. Avoid NSAIDS and fish oil unless directed by physician since these medications can thn out blood as well. ED warnings given to pt. Pt verbalizes understanding.)Can you provide me with the names or descriptions of any amwa-tbc-uidwofj or supplements you are currently taking?: Yes (none)SuppliesDid you receive applicable home medical supplies/equipment?: N/AFollow Up AppointmentHas a follow up appointment been scheduled?: No (Pt will FU with ext. PCP. Specialty clinics will reach out to pt.)May I assist with scheduling this appointment?: Patient has outside PCPDo you have any questions about your follow up appointments?: NoAre you able to get to your appointment? Who will be taking you?: YesHome Health AssistanceHas the home health nurse contacted you since you've been home?: N/ASurvey - RecognitionIs there anything you would like to share about your recent hospitalization, or anyone you would like to recognize?: NoDo you have any suggestions for improvement?: NoDo you have any other questions or concerns at this time?: No 05030-8Xeofhhsck encounter DbhnFD6700-59-31K48:23:48Telephone encounter NoteTXT1.2.840.177565.1.13.104.2.7.2.7 82857|[id number] for patient oyuv49127-3CcedSEWTKGSJWLCZtwamkhrd C-CDA narrative [id number] Matt TIMUT[address] AwatSzlgrictaInlmwefuaPNXE4546276350AU CVONDBIVCQDEUWTXZMAT0178-48-99A50:23:4 81.2.840.380744.1.72.3.15|1.2.840.1143 50.1.13.104.2.7.2.727879_[id number] France Gutierrez RN [facility] 2023-07-15 20:52:35 EYy3t8Xp2T6RVsABtvQIkiz1i+8ql1x70rv95A Bf92USLuSeg/+Cjef4v4lNTbhu9086-15-21B1 0:52:35Summary: Discharge instructions with Eliquis Extensive education provided on new anticoag medication, Eliquis. Went over discharge instructions in regards to new medication, medication duration, loading dose and further dose changes with Eliquis.Educated the patient on the importance of discontinuing aspirin while taking Eliquis.Educated patient on the importance of bleeding signs and symptoms, when to call EMS/present to ED.Informed the patient of the importance of following up with PCP and cardiology in two weeks time.Informed patient of numbers to contact (our ICU nursing station, material requirements planning manager) should she have any questions in regards to her discharge [place] [address]-0Ykowr IrhrPI1923-19-04W39:59:02Nurse NoteTXT1.2.840.341923.1.13.104.2.7.2.7 86283|[id number] for patient edzj53166-8Kvzwl NoteLNNARRATIVEFormatted C-CDA narrative [id number] M. Ripple RN[id number] VMWDBBPMYCUZIOWPQSGZ1781-26-78B55:59:0 21.2.840.648823.1.72.3.15|1.2.840.1143 50.1.13.104.2.7.2.727879_[id number] Evelyne Chowdhury RN [facility] 2023-07-15 20:27:48 eUgQ/CfgnKV2k4de+acFqemMXIvlJxcnDK5S9R HV6rf3Ulz1fp+5UgbW7vJTAKfr5613-27-11U5 0:27:48 Problem: Respiratory Function - ImpairedGoal: Able to cough effectivelyOutcome: ResolvedGoal: Adequate oxygenationOutcome: ResolvedGoal: Patent airwayOutcome: Resolved 12133-0Jduu of care gnbdEW7057-17-61R78:28:01Plan of care noteTXT1.2.840.964212.1.13.104.2.7.2.7 96328|[id number] for patient dnjv82182-9LqneUHHHJUQPVVYIwtfcniac C-CDA narrative text[address]TXTX7755577555US YGJBZUZZQWJVJUCKMNKJ5913-46-60S84:28:0 11.2.840.072469.1.72.3.15|1.2.840.1143 50.1.13.104.2.7.2.727879_[id number] [facility] 2023-07-15 14:30:44 Emj4wtcUGW2m9FgeeBpUHjZR6C6bSvZ+oEz3Rb OZLlFCzEZY7xNrBWHsvn0LOdVb0796-37-70N7 4:30:44 Problem: Discharge PlanningGoal: Effective communicationOutcome: Adequate for dischargeProblem: Discharge PlanningGoal: Knowledge of medication managementOutcome: Adequate for dischargeProblem: Falls, Risk ofGoal: Absence of fallsOutcome: Adequate for discharge 40661-4Ojmo of care aekvRX8864-32-45F92:30:48Plan of care noteTXT1.2.840.361659.1.13.104.2.7.2.7 90268|[id number] for patient dbah33559-6GegqJAODJSQHPDKOkrsjlygb C-CDA narrative [id number] Hurtado RN[address]TXTX[address]7555US WSWJVIBNJEVWXDQBTYUU5534-26-64A23:30:4 81.2.840.604757.1.72.3.15|1.2.840.1143 50.1.13.104.2.7.2.727879_[id number] DilmaTiana Hurtado RN [facility] 2023-07-15 02:51:56 idExmy9SU5PjUj1jfGZzM3E8zJQraScUJrWJp2 m7I5ugJ9mfnOmw5A+ZcQN4vniL1020-88-25Q8 2:51:56 Problem: Discharge PlanningGoal: Effective communicationOutcome: Progressing as expectedProblem: Discharge PlanningGoal: Knowledge of medication managementOutcome: Progressing as expectedProblem: Falls, Risk ofGoal: Absence of fallsOutcome: Progressing as expected 64859-6Kwvt of care pbguMD4232-87-49T27:52:19Plan of care noteTXT1.2.840.014252.1.13.104.2.7.2.7 78263|[id number] for patient dotr39890-6XngoADNRZVBYFGMUpeiiulmk C-CDA narrative hnxw513290924Xfhqfaehv Landin RN[id number] ZCGTLVGXNBFPLBGUDHMD1185-10-05O14:52:1 91.2.840.004907.1.72.3.15|1.2.840.1143 50.1.13.104.2.7.2.727879_[id number] Albertina Tai RN [facility] 2023-07-14 18:31:35 hC99ETrNJCZdlA5Bo+bUHyTXy9p8DKakyyOte1 J6CYsVdGQ3i2bSmjnhL5j7ygsY6960-78-69B9 8:31:35 Problem: Discharge PlanningGoal: Effective communicationOutcome: Progressing as expectedProblem: Discharge PlanningGoal: Knowledge of medication managementOutcome: Progressing as expectedProblem: Falls, Risk ofGoal: Absence of fallsOutcome: Progressing as expected 07778-0Ffdd of care ytooJU6705-64-25U62:31:38Plan of care noteTXT1.2.840.653987.1.13.104.2.7.2.7 61014|[id number] for patient jkfc70122-5FbxkNDTKRJXSBJZAwzvxubxt C-CDA narrative ilvy510750745Svekg S Roberts RN[address]TXTX[address]5577555US MTWQNRPFRLUJWRLUABLC9836-33-30Q52:31:3 81.2.840.302589.1.72.3.15|1.2.840.1143 50.1.13.104.2.7.2.727879_[id number] Robyn Hernandez RN [facility] 2023-07-14 00:53:14 qIEU1pVDwFYUEBj7Q13AmAwxFtNwZwnn+b2gfs 2ezINHUvHK18sfIHKNKNtWCt8D6368-06-61U5 0:53:14 Patient admitted to 2105 for diagnosis of Chest painPatient agrees to admission, discussed plan of care with patient and family.Patient is awake, alert, oriented, resp reg unlabored, color appropriate for race, PIV intactNo adverse reaction to medications administered while in EDBelongings with patient to unitReport to GLENROY Gallo 32284-1Vwrofsvrb department BfywMG7606-85-59G91:54:05Emer[facility] department NoteTXT1.2.840.023757.1.13.104.2.7.2.7 58710|[id number] for patient surs60205-7QhzcZUTVVKZNBLLNodzhnyyw C-CDA narrative ujaa572838218Ubfehc J Eduard RN[id number] BTWDUYQUBYOWYFIVTTLF0227-92-57P54:54:0 51.2.840.349793.1.72.3.15|1.2.840.1143 50.1.13.104.2.7.2.727879_[id number] Ami Maurer Eduard RN [facility] 2023-07-13 19:52:15 Az3DoN4Be+3xaMOq3K04sH/gSa0AWMq0MeGuPS jvH2x35ALFMsQ5cCuHFItpJiGK5689-43-66B3 9:52:15 Patient arrived ambulatory c/o of intermittent chest tightness on that started about two days ago. 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.Hx: irregular heart beats, HTN 49474-7Ekzstsdwu department Triage eghtUK3423-02-55I13:55:55[facility] Triage noteTXT1.2.840.240161.1.13.104.2.7.2.7 94795|[id number] for patient suja50441-3Rivdtkidy department NoteLNNARRATIVEFormatted C-CDA narrative [id number] M Felix RN[address]TXTX[address]7555US MNZTQXMJTLNXHWDZNJGF3532-27-98Q17:55:5 51.2.840.510103.1.72.3.15|1.2.840.1143 50.1.13.104.2.7.2.727879_[id number] Ayanna Thor Enmanuel TIM [facility] - Health 2023-07-13 19:44:00 InutFDCQlqZZJHiPpZZ18efFJz14lhxS6M7Yri Dzsgh1mLKwr8z985UMZM0p9V3l3889-04-09Q7 9:44:00Associated Order(s): EKG-12 Lead ROUTINE ONCEPre-Procedure Diagnose(s): Chest pain, unspecified typePost-Procedure Diagnose(s): Chest pain, unspecified type [facility] Emergency Department NotePatient Name: Yamile Thibodeaux of : 1950 73 year old femaleTreatment Room: [place] [address]ZL6Wrrwegr Record Number: [id number] Care Physician: Sheng AbrahamPatient Escorted by: Self [9]Mode of Arrival: Personal means [1]EMS Treatment Prior to ED Arrival:[employer]ER treatment: NoneTravel and Exposure Screening:SymptomsDoes patient have any of these symptoms?: (not recorded)Exposure ScreeningHas patient had contact with someone with a communicable disease in the last month?: (not recorded)Diseases exposed to:: (not recorded)Is Patient ?: (not recorded)Exposure Date: (not recorded)Chief Complaint:Chief ComplaintPatient presents withChest PainHistory of Present Illness:73 y/o female pt presents to ER for evaluation of chest pain. Pt reports she has intermittent anterior chest pain that moves from right anterior chest, substernal area and left anterior chest for past 2 days. Pt reports she feels the pain is radiating to left upper back. Pt reports pain is worse with certain movements and feels better when she is just lying down/not moving. Pt states pain is "deep soreness" and lasts for few seconds.No radiation of pain to the neck or arms. No fever or chills. No SOB, DOEPt reports feeling of intermittent fluttering feeling in the chest.Pt reports history of HTN and irregular HR. Denies history of CAD/CHF. Pt is on coreg, Irbesartan- HCTZ, amlodipine, atorvastatin, hydralazine, and amoxicillin (for sinus infection )History provided by: Patient and medical recordsHistory limited by: none.hourly sign language interpreter used: NoPast Medical History/Immunizations:Past Medical History:Diagnosis DateDepressionHeart murmurHypertensionTetanus received in last 5 years: NoChildhood immunizations: Yi-vl-jcvfUydawnagz:No Known AllergiesPast Social History:Tobacco UseNever smoked or used smokeless tobacco.Alcohol UseNot Currently.Drug UseNever.Sexual ActivitySexually active; Partners: Male.Past Surgical History:Past Surgical History:Procedure Laterality DateCYST EXCISIONwrist leftTUBAL LIGATIONReview of Systems:Review of SystemsConstitutional: Negative for activity change, appetite change, chills, fatigue and fever.HENT: Negative for congestion, ear pain, facial swelling, mouth sores, rhinorrhea, sore throat and trouble swallowing.Eyes: Negative.Respiratory: Positive for cough (dry). Negative for chest tightness and shortness of breath.Cardiovascular: Positive for chest pain and palpitations (fluttering feeling in chest). Negative for leg swelling.Gastrointestinal: Negative for abdominal pain, constipation, diarrhea, nausea and vomiting.Genitourinary: Negative.Musculoskeletal: Negative for arthralgias, back pain, gait problem, joint swelling, myalgias and neck pain.Skin: Negative.Neurological: Negative for dizziness, tremors, seizures, syncope, numbness and headaches.Psychiatric/Behavioral: Negative for behavioral problems and confusion. The patient is not nervous/anxious.Physical Exam:ED Triage Vitals [07/13/231951]Weight 77.1 kg (170 lb)Actual or estimated Estimated by patient/family reportHeight 1.753 m (5' 9")BP (!) 154/82Pulse 65Resp 15Temp 36.8 ?C (98.3 ?F)Temp source OralSpO2 100 %Measured on Room airPhysical ExamVitals and nursing note reviewed.Constitutional:General: She is awake. She is not in acute distress.Appearance: Normal appearance. She is well-developed and well-groomed. She is not ill-appearing or toxic-appearing.HENT:Head: Normocephalic and atraumatic.Right Ear: External ear normal.Left Ear: External ear normal.Nose: Nose normal. No congestion.Mouth/Throat:Mouth: Mucous membranes are moist.Pharynx: Oropharynx is clear.Eyes:General: No scleral icterus.Conjunctiva/sclera: Conjunctivae normal.Cardiovascular:Rate and Rhythm: Normal rate and regular rhythm.Pulses:Radial pulses are 2+ on the right side.Pulmonary:Effort: Pulmonary effort is normal. No respiratory distress.Breath sounds: Normal breath sounds. No wheezing.Chest:Chest wall: No tenderness.Abdominal:General: Abdomen is flat. Bowel sounds are normal. There is no distension.Palpations: Abdomen is soft.Tenderness: There is no abdominal tenderness. There is no guarding.Musculoskeletal:Cervical back: Neck supple. No rigidity.Right lower leg: No edema.Left lower leg: No edema.Skin:General: Skin is warm and dry.Capillary Refill: Capillary refill takes less than 2 seconds.Findings: No erythema or rash.Neurological:Mental Status: She is alert and oriented to person, place, and time.GCS: GCS eye subscore is 4. GCS verbal subscore is 5. GCS motor subscore is 6.Cranial Nerves: No facial asymmetry.Psychiatric:Mood and Affect: Mood normal.Behavior: Behavior normal. Behavior is cooperative.Radiology:XR CHEST 1 VWFinal ResultCHEST X-RAY AP PORTABLE07/13/2023 9:48 PMOrdering physician: JADE MARINICAL INFORMATION: Chest painCOMPARISON: Chest x-ray dated 06/28/2023TECHNIQUE: single AP view of the chest was submitted.FINDINGS:Persistent bilateral subcentimeter calcified granulomas. The lungs areotherwise clear. No pleural effusions. No pneumothorax. Calcificationtothe thoracic aorta. The cardiomediastinal silhouette is within normallimits. No acute radiographic bony abnormalities.IMPRESSION1. Residual from previous granulomatous disease of the chest. Otherwise,Noradiographic evidence to acute cardiopulmonary disease.RL: 2822HS:Y Lab Results:Lab ResultsCOMP. METABOLIC PANEL (13470) - AbnormalResult Value Ref RangeNA 140 135 - 145 mmol/LK 3.2 (*) 3.5 - 5.0 mmol/LCL 102 98 - 108 mmol/LCO2 TOTAL 31 23 - 31 mmol/LAGAP 7 2 - 16BUN 10 7 - 23 mg/dLGLUCOSE 98 70 - 110 mg/dLCREATININE 0.72 0.50 - 1.04 mg/dLTOTAL BILI 0.6 0.1 - 1.1 mg/dLCALCIUM 9.1 8.6 - 10.6 mg/Guillermo PROTEIN 8.3 (*) 6.3 - 8.2 g/dLALBUMIN 4.0 3.5 - 5.0 g/dLALK PHOS 123 (*) 34 - 122 U/LALTv 19 5 - 35 U/LAST(SGOT) 27 13 - 40 U/LeGFR 89.5 mL/min/1.71n0VTY WITH DIFF - AbnormalWBC 5.17 4.30 - 11.10 10*3/?LRBC 3.84 (*) 3.93 - 5.25 10*6/?LHGB 11.7 11.6 - 15.0 g/dLHCT 36.2 35.7 - 45.2 %MCV 94.3 80.6 - 95.5 fLMCH 30.5 25.9 - 32.8 pgMCHC 32.3 31.6 - 35.1 g/dLRDW-SD 47.6 39.0 - 49.9 fLRDW-CV 13.9 12.0 - 15.5 %PLT 244 166 - 358 10*3/?LMPV 10.1 9.5 - 12.9 fLNRBC/100 WBC 0.0 0.0 - 10.0 /100 WBCsNRBC x10^3 <0.01 10*3/?LGRAN MAT (NEUT) % 33.4 %IMM GRAN % 0.20 %LYMPH % 48.5 %MONO % 10.3 %EOS % 6.4 %BASO % 1.2 %GRAN MAT x10^3(ANC) 1.73 (*) 1.88 - 7.09 10*3/uLIMM GRAN x10^3 <0.03 0.00 - 0.06 10*3/uLLYMPH x10^3 2.51 1.32 - 3.29 10*3/uLMONO x10^3 0.53 0.33 - 0.92 10*3/uLEOS x10^3 0.33 0.03 - 0.39 10*3/uLBASO x10^3 0.06 0.01 - 0.07 10*3/uLTROPONIN I - NormalTROPONIN I 0.004 <=0.034 ng/mLLIPASE - NormalLIPASE 67 0 - 220 U/LEKG:If EKG completed, see Procedure Note.Orders and Treatments:Orders Placed This EncounterProceduresXR CHEST 1 VWTROPONIN ICOMP. METABOLIC PANEL (06459)LIPASE, SERUMCBC WITH DIFFO2 Per ProtocolOrders Placed This EncounterMedicationssodium chloride (NS) injection 5 mLenoxaparin (LOVENOX) injection 40 mgacetaminophen (TYLENOL) tablet 650 mgtraMADoL (ULTRAM) tablet 50 mgFENTanyl PF (SUBLIMAZE (PF)) injection 50 mcgnitroglycerin (NITROSTAT) sublingual tablet 0.4 mgFirst Provider Eval:ED EventsDate/Time Event User Nqlmgmyi88/25/241956 Medical Screening Begins JADE LARSON --07/13/231956 First Provider Evaluation JADE LARSON --ED COURSEVSS, stable pt, no acute distressPt is well appearing. Pt reports intermittent anterior chest pain moving from Right anterior chest, substernal chest and left anterior chest for past 2 days. Pt reports the pain is radiating to left upper back. Pt reports pain is "deep soreness" and lasts for few seconds.CBC-WNLCMP shows K 3.2, otherwise unremarkableTroponin - wnlCXR unremarkableAll results discussed with the pt.Chest pain that pt is describing not typical chest pain of myocardial ischemia. When considering her age, and comorbid conditions, HEART SCORE 4Will admit for further evaluation and management of symptoms.Discussed with hospitalist and accepted for admissionDiagnosis/Impression as of 07/14/23 0101Chest pain, unspecified typeProcedures:EKG-12 Lead ROUTINE ONCEDate/Time: 07/14/2023 12:53 AMPerformed by: Jade Lopez FNPAuthorized by: Jade Lopez FNPECG interpreted by ED Physician in the absence of a helper coordinator: yesInterpretation:Interpretation: normalDetails: SR with 1 st degree AV blockRate:ECG rate: 66ECG rate assessment: normalRhythm:Rhythm: sinus rhythmEctopy:Ectopy: noneQRS:QRS axis: NormalQRS intervals: NormalQRS conduction: non-specific conduction delayDetails: 1 st degree AV blockT waves:T waves: non-specificMDM:Medical Decision MakingDDX considered includes but not limited to STEMI, NSTEMI, ATYPICAL CHEST PAIN, pleurisy, chest wall pain, pleural effusion, pericarditis, pericardial effusion, pneumonia, anxiety,Problems Addressed:Chest pain, unspecified type: acute illness or injuryAmount and/or Complexity of Data ReviewedExternal Data Reviewed: notes.Details: ED visit note on 06/28/2023Labs: ordered. Decision-making details documented in ED Course.Radiology: ordered. Decision-making details documented in ED Course.ECG/medicine tests: ordered. Decision-making details documented in ED Course.RiskPrescription drug management.Parenteral controlled substances.Decision regarding hospitalization.Flowsheet Documentation:Scoring Tools:No data recordedHEART Score: 4Disposition/Condition:ED DispositionED DispositionAdmit - ObservationCondition--CommentTreatment Team: [facility] [[id number]]Discharge Medications:Patient's MedicationsSTART taking these medicationsNo medications on fileCONTINUE taking these medications which have NOT CHANGEDAMLODIPINE 10 MG TABLET Take 10 mg by mouth daily.ASPIRIN 325 MG TABLET Take 325 mg by mouth daily.ATORVASTATIN 20 MG TABLET Take 20 mg by mouth at bedtime.BENZONATATE 100 MG CAPSULE Take 1 capsule by mouth 3 (three) times daily as needed for Cough.CARVEDILOL 25 MG TABLET Take 25 mg by mouth 2 (two) times daily.CHLORPHENIRAMINE 4 MG TABLET Take 1 tablet by mouth every 6 (six) hours as needed for Allergies or Runny nose.DULOXETINE 60 MG CAPSULE TAKE 1 CAPSULE BY MOUTH EVERY DAY WITH FOODERGOCALCIFEROL, VITAMIN D2, (VITAMIN D ORAL) Take by mouth.HYDRALAZINE 10 MG TABLET Take 1 tablet by mouth in the morning and 1 tablet in the evening.IRBESARTAN-HYDROCHLOROTHIAZIDE 300-12.5 MG PER TABLET Take 1 tablet by mouth daily.LORATADINE (CLARITIN ORAL) Take by mouth.MONTELUKAST 10 MG TABLET Take 10 mg by mouth.NAPROXEN SODIUM (ANAPROX DS) 550 MG TABLET Take 1 tablet by mouth in the morning and 1 tablet in the evening. Take with meals.START taking Modified Medications as PrescribedNo medications on fileSTOP taking these medicationsNo medications on fileFollow-up:Contact information for follow-Sheng Gonzales VSpecialty: IM-INTERNAL MEDICINERelationship: PCP - [address]yL[address] [place] [id number]: [phone] signed by:Jade Lopez FNP07/14/23 0104 ssociated attestation - Palak Sampson MD - 07/14/2023 1:43 AM CDT Mandi was personally available for consultation in the Emergency Department during this encounter and patient evaluation by SEBASTIAN Lopez.74475-2Bdgdxqiie Emergency department [id number], [place] S1.2.840.558929.1.13.104.2.7.2.088399C giguvEkksefCZX2649-78-21Q98:43:19Physi [facility] Emergency department NoteTXT1.2.840.005056.1.13.104.2.7.2.7 74723|[id number] for patient twyw02730-7Ayntuapia department NoteLNNARRATIVEFormatted C-CDA narrative textNP-FAMILY MIDLEVEL PROVIDERNP-FAMILY MIDLEVEL PROVIDER[address] Eq[id number] FDEDGSHTXRFOSZFDQTNC4044-82-99Y86:43:1 91.2.840.930211.1.72.3.15|1.2.840.1143 50.1.13.104.2.7.2.727879_[id number] CLAIMS CUSTOMER SERVICE REPRESENTATIVE-FAMILY MIDLEVEL PROVIDER [facility] 2023-06-28 21:02:27 Dh4Mudg/T22wQZzT56jb5P+2YQMnwcO8X895Ma Vj6luDcV4/xnIgs97xZv77Kul+5160-27-37L4 1:02:27 Pt discharged with diagnosis of palpitations, encouraged hydration. Printed and verbal instructions reviewed with and given to pt. Pt. verbalized understanding of teaching and recommended follow-up. Denies questions or concerns at this time. Pt ambulatory at discharge. Appears in no apparent distress. No ataxia noted.Advised to seek medical attention for new/prolonged/worsening of symptoms,Symptoms improved.No adverse reaction to meds given in ER noted upon dischargePIV d'cd, dressing to site, catheter in tact. 45725-5Knaxwxffm department YudsNY6105-35-49L31:03:12[facility] NoteTXT1.2.840.058012.1.13.104.2.7.2.7 18457|[id number] for patient rgga92895-7XkybWJIIMNJAPQODwiqujfud C-CDA narrative [id number] Muller RN[address] Derp[id number] GWEUUONJHIXTWZUPTLKA6548-46-42A18:03:1 21.2.840.051655.1.72.3.15|1.2.840.1143 50.1.13.104.2.7.2.727879_[id number] Verena Muller RN [facility] 2023-06-28 16:58:37 Aleksandrm06/bsUAR3D30SODP/nZbmT8Bei3dyVOJP sDie9HwXRkCWWVWx9v2+fJAN0L7488-03-99E6 6:58:37 Pt presents with feeling of fluttering in her chest for a week, but pt states she also hasn't been feeling well. Pt reports weak, bodyaches, and cough for 3 weeks. Pt states she has been on two different antibiotics and neither are working.Pt VSS during triage. 49[address]-1Neiludhyk department Triage urepSQ8267-96-00B34:01:35[facility] department Triage noteTXT1.2.840.775606.1.13.104.2.7.2.7 05803|[id number] for patient pkil34195-0Tnequfzkj department NoteLNNARRATIVEFormatted C-CDA narrative [id number] E Linkes RN[address] KrfzBlmcitpdzMbepkqkqzNKKO3729123047PS ZGPDCVSIWIIXCSZECLIR1296-91-00W43:01:3 51.2.840.695996.1.72.3.15|1.2.840.1143 50.1.13.104.2.7.2.727879_[id number] Annalee Kirby RN [facility] 2023-06-16 22:15:34 e9CVX+33BEhhP7U+/tfbbi8FCeMOuo+EUebLen DFDCl7KSvmsNRka9wUe9YL73yN8201-78-32W6 2:15:34 Pt given printed and verbal discharge instructions regarding uncontrolled hypertension.Encouraged hydration,Prescriptions provided: HydralizineDiscussed ibuprofen and to take with food to avoid GI distress.Pt verbalized understanding of instructions, pt awake alert oriented, resp reg unlabored, skin w/d, color appropriate for race, moves all ext well,pt encouraged to follow up with pcp.Advised to seek medical attention for new/prolonged/worsening of symptoms,Symptoms improvedNo adverse reaction to meds given in ER noted upon dischargePIV d'cd, dressing to site, catheter in tact.Awake, alert oriented, resp reg unlabored, skin w/d, pt leaving amb with steady gait, in no apparent distress. 82224-7Mposgsdhd department TlbsJE8363-63-60Y76:19:35[facility] department NoteTXT1.2.840.911580.1.13.104.2.7.2.7 73637|[id number] for patient thae89222-9KxscUSEGHKIGFJESgfpluyvm C-CDA narrative [id number] A. Emil RN[address] [id number] QBUFIKGABWVDEGRNDIZR9954-50-20J03:19:3 51.2.840.698532.1.72.3.15|1.2.840.1143 50.1.13.104.2.7.2.727879_[id number] Tete AAnderson Stein RN [facility] 2023-06-16 20:40:12 BQNryipsEnTrXzm1XBFVRuclIUCBl+3y/DSd2z sAtTbkZV+G4C6hiF5+QlT1JzCr8518-50-75M8 0:40:12 Patient reports having alternating high and low blood pressures for about the past 5 days. She reports having a headache today, she took Tylenol around 1500 with little relief. Her BP meds are correct in our system. She also felt some fluttering in her chest earlier with intermittent left fingertip paraesthesias. 98490-3Uqybbabft department Triage kzdxFJ7927-18-20G60:43:01[facility] department Triage noteTXT1.2.840.295058.1.13.104.2.7.2.7 11347|[id number] for patient kobq17543-7Kgosodwra department NoteLNNARRATIVEFormatted C-CDA narrative [id number] M Leibee RN[id number] EZMNIUMENMPRKDOXKGBG4897-24-27M95:43:0 11.2.840.008876.1.72.3.15|1.2.840.1143 50.1.13.104.2.7.2.727879_[id number] Gopal Dodge RN [facility] - Health 2023-06-16 20:34:00 CGIzdwu7qpX0l8YRMn07boH7mwSdzMGsZNs5ou fnU9Piq/1cEbAuYK6jmEfUYKp65410-13-61J8 0:34:00 [facility] Emergency Department NotePatient Name: Yamile Weaverte of : 1950 73 year old femaleTreatment Room: [place] [address]Medical Record Number: [id number] Care Physician: Sheng AbrahamPatient Escorted by: Family [5]Mode of Arrival: Personal means [1]EMS Treatment Prior to ED Arrival:[employer] 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 She reports having a headache today, she took Tylenol around 1500 with little relief. Her BP meds are correct in our system. She also felt some fluttering in her chest earlier with intermittent left fingertip paraesthesias.History provided by: PatientLanguage interpreter for the deaf used: NoPast Medical History/Immunizations:Past Medical History:Diagnosis DateDepressionHeart murmurHypertensionTetanus received in last 5 years: UnknownChildhood immunizations: Eu-yn-zhcySowmkvlqt:No Known AllergiesPast Social History:Tobacco UseNever smoked or used smokeless tobacco.Alcohol UseNot Currently.Drug UseNever.Sexual ActivitySexually active; Partners: Male.Past Surgical History:Past Surgical History:Procedure Laterality DateCYST EXCISIONwrist leftTUBAL LIGATIONReview of Systems:Review of SystemsConstitutional: Negative for activity change, appetite change, chills, diaphoresis, fatigue and fever.HENT: Negative for congestion, ear discharge, ear pain, rhinorrhea, sore throat and trouble swallowing.Eyes: Negative for photophobia, pain, discharge and redness.Respiratory: Negative for cough, chest tightness, shortness of breath and wheezing.Cardiovascular: Negative for chest pain, palpitations and leg swelling.Gastrointestinal: Negative for abdominal distention, abdominal pain, blood in stool, constipation, nausea and vomiting.Genitourinary: Negative for dysuria, urgency, polyuria, frequency, hematuria and flank pain.Musculoskeletal: Negative for arthralgias, joint swelling, myalgias and neck stiffness.Skin: Negative for color change, rash and wound.Neurological: Positive for headaches. Negative for dizziness, seizures, syncope, facial asymmetry, weakness, light-headedness and numbness.Hand paresthesiasPsychiatric/Behavioral: Negative for agitation, confusion, hallucinations and self-injury. The patient is nervous/anxious.Hematological: Negative for adenopathy and cold intolerance. Does not bruise/bleed easily.Endocrine: Negative for cold intolerance, polydipsia and polyuria.Physical Exam:ED Triage Vitals [06/16/232042]Weight 77.1 kg (170 lb)Actual or estimatedHeight 1.753 m (5' 9")BP (!) 174/105Pulse 73Resp 20Temp 36.9 ?C (98.5 ?F)Temp srcSpO2 99 %Measured on Room airPhysical ExamVitals and nursing note reviewed.Constitutional:General: She is not in acute distress.Appearance: She is well-developed. She is not diaphoretic.HENT:Head: Normocephalic and atraumatic.Right Ear: External ear normal.Left Ear: External ear normal.Nose: Nose normal.Mouth/Throat:Pharynx: No oropharyngeal exudate.Eyes:General: No scleral icterus.Right eye: No discharge.Left eye: No discharge.Conjunctiva/sclera: Conjunctivae normal.Pupils: Pupils are equal, round, and reactive to light.Neck:Thyroid: No thyromegaly.Vascular: No JVD.Trachea: No tracheal deviation.Cardiovascular:Rate and Rhythm: Normal rate and regular rhythm.Heart sounds: Normal heart sounds. No murmur heard.No friction rub. No gallop.Pulmonary:Effort: Pulmonary effort is normal. No respiratory distress.Breath sounds: Normal breath sounds. No stridor. No wheezing or rales.Chest:Chest wall: No tenderness.Abdominal:General: Bowel sounds are normal. There is no distension.Palpations: Abdomen is soft. There is no mass.Tenderness: There is no abdominal tenderness. There is no guarding or rebound.Musculoskeletal:General: No tenderness or deformity. Normal range of motion.Cervical back: Normal range of motion and neck supple.Lymphadenopathy:Cervical: No cervical adenopathy.Skin:General: Skin is warm and dry.Coloration: Skin is not pale.Findings: No erythema or rash.Neurological:Mental Status: She is alert and oriented to person, place, and time.Cranial Nerves: No cranial nerve deficit.Motor: No abnormal muscle tone.Coordination: Coordination normal.Deep Tendon Reflexes: Reflexes are normal and symmetric. Reflexes normal.Psychiatric:Behavior: Behavior normal.Thought Content: Thought content normal.Judgment: Judgment normal.Radiology:No orders to displayLab Results:Lab ResultsCBC WITH DIFF - AbnormalResult Value Ref RangeWBC 5.17 4.30 - 11.10 10*3/?LRBC 3.65 (*) 3.93 - 5.25 10*6/?LHGB 11.2 (*) 11.6 - 15.0 g/dLHCT 34.2 (*) 35.7 - 45.2 %MCV 93.7 80.6 - 95.5 fLMCH 30.7 25.9 - 32.8 pgMCHC 32.7 31.6 - 35.1 g/dLRDW-SD 46.8 39.0 - 49.9 fLRDW-CV 13.6 12.0 - 15.5 %PLT 310 166 - 358 10*3/?LMPV 10.0 9.5 - 12.9 fLNRBC/100 WBC 0.0 0.0 - 10.0 /100 WBCsNRBC x10^3 <0.01 10*3/?LGRAN MAT (NEUT) % 42.5 %IMM GRAN % 0.00 %LYMPH % 40.6 %MONO % 11.8 %EOS % 4.3 %BASO % 0.8 %GRAN MAT x10^3(ANC) 2.20 1.88 - 7.09 10*3/uLIMM GRAN x10^3 <0.03 0.00 - 0.06 10*3/uLLYMPH x10^3 2.10 1.32 - 3.29 10*3/uLMONO x10^3 0.61 0.33 - 0.92 10*3/uLEOS x10^3 0.22 0.03 - 0.39 10*3/uLBASO x10^3 0.04 0.01 - 0.07 10*3/uLBASIC METABOLIC PANEL (NA, K, CL, CO2, GLUCOSE, BUN, CREATININE, CA) - AbnormalNA 144 135 - 145 mmol/LK 3.6 3.5 - 5.0 mmol/LCL 110 (*) 98 - 108 mmol/LCO2 TOTAL 30 23 - 31 mmol/LAGAP 4 2 - 16BUN 15 7 - 23 mg/dLGLUCOSE 107 70 - 110 mg/dLCREATININE 0.77 0.50 - 1.04 mg/dLCALCIUM 9.1 8.6 - 10.6 mg/dLeGFR 82.6 mL/min/1.07z0IIPWPJRZ I - NormalTROPONIN I 0.002 <=0.034 ng/mLEKG:If EKG completed, see Procedure Note.Orders and Treatments:Orders Placed This EncounterProceduresCbc with DiffBasic Metabolic Panel (NA, K, CL, CO2, GLUCOSE, BUN, CREATININE, CA)Troponin IOrders Placed This EncounterMedicationsenalaprilat (VASOTEC I.V.) injection 1.25 mghydrALAZINE 10 mg tabletFirst Provider Eval:ED EventsDate/Time Event User Rrckqgtj32/27/24 2100 Medical Screening Begins RAISSA OLMOS MD --06/16/232122 First Provider Evaluation RAISSA OLMOS MD --ED COURSEPatient's symptoms totally resolved with the treatment provided in the ED, will add a low dose of Hydralazine to her daily medications to achieve better BP Control, and will ask her to follow up with her PCP in 3 days.Diagnosis/Impression as of 06/16/23 2205Uncontrolled hypertensionProcedures:ProceduresMDM:M edical Decision MakingProblems Addressed:Uncontrolled hypertension: complicated acute illness or injury with systemic symptomsAmount and/or Complexity of Data ReviewedExternal Data Reviewed: labs, radiology, ECG and notes.Details: From previous visits reviewed and compared with current dataLabs: ordered. Decision-making details documented in ED Course.ECG/medicine tests: ordered and independent interpretation performed. Decision-making details documented in ED Course.RiskPrescription drug management.Drug therapy requiring intensive monitoring for toxicity.Flowsheet Documentation:Scoring Tools:No data recordedDisposition/Condition:ED DispositionED DispositionDisch - HomeConditionStableComment--Discharge Medications:Patient's MedicationsSTART taking these medicationsHYDRALAZINE 10 MG TABLET Take 1 tablet by mouth in the morning and 1 tablet in the evening.CONTINUE taking these medications which have NOT CHANGEDAMLODIPINE 10 MG TABLET Take 10 mg by mouth daily.ASPIRIN 325 MG TABLET Take 325 mg by mouth daily.ATORVASTATIN 20 MG TABLET Take 20 mg by mouth at bedtime.BENZONATATE 100 MG CAPSULE Take 1 capsule by mouth 3 (three) times daily as needed for Cough.CARVEDILOL 25 MG TABLET Take 25 mg by mouth 2 (two) times daily.CHLORPHENIRAMINE 4 MG TABLET Take 1 tablet by mouth every 6 (six) hours as needed for Allergies or Runny nose.DULOXETINE 60 MG CAPSULE TAKE 1 CAPSULE BY MOUTH EVERY DAY WITH FOODERGOCALCIFEROL, VITAMIN D2, (VITAMIN D ORAL) Take by mouth.IRBESARTAN-HYDROCHLOROTHIAZIDE 300-12.5 MG PER TABLET Take 1 tablet by mouth daily.LORATADINE (CLARITIN ORAL) Take by mouth.MONTELUKAST 10 MG TABLET Take 10 mg by mouth.NAPROXEN SODIUM (ANAPROX DS) 550 MG TABLET Take 1 tablet by mouth in the morning and 1 tablet in the evening. Take with meals.START taking Modified Medications as PrescribedNo medications on fileSTOP taking these medicationsNo medications on fileFollow-up:Contact information for follow-Sheng Gonzales VSpecialty: IM-INTERNAL MEDICINERelationship: [place] - [place] [address]Uvqcr: [phone]: For Blood pressure re-evaluation and to adjust your medications as need it.Electronically signed by:Raissa Olmos MD06/16/232205 14203-2Bvqgyyhuz Emergency department QsykWX4205-83-80N16:06:01Physician Emergency department NoteTXT1.2.840.059862.1.13.104.2.7.2.7 27452|[id number] for patient awcr70390-0Fqftsohlo department NoteLNNARRATIVEFormatted C-CDA narrative text[address] Do[id number] CEBBOQEVYWDFGTZCWOKQ9126-52-04Q36:06:0 11.2.840.518612.1.72.3.15|1.2.840.1143 50.1.13.104.2.7.2.727879_[id number] [facility] 2022-11-29 13:18:18 RY/KiAUA1jbHD70doerH1gcv7eujIZcv+DydX/ BGSMGjfErYiwO3mOqQP37WGjxQ4085-06-51D6 3:18:18 Pt given printed and verbal discharge instructions regarding GERD, Palpitations, Grief, encouraged hydration,NO Prescriptions providedDiscussed ibuprofen and to take with food to avoid GI distress.Pt verbalized understanding of instructions, pt awake alert oriented, resp reg unlabored, skin w/d, color appropriate for race, moves all ext well,pt encouraged to follow up with pcp Advised to seek medical attention for new/prolonged/worsening of symptoms,No adverse reaction to meds given in ER noted upon dischargeAwake, alert oriented, resp reg unlabored, skin w/d, pt leaving amb with steady gait, in no apparent distress, [address]-5Wjbyfctns department ZetbDB8220-53-14O46:19:19[facility] department NoteTXT1.2.840.746710.1.13.104.2.7.2.7 75012|[id number] for patient zfln15297-8TdieXTPBJOZMGW[address] StreetTXTX775[address]7555US FWHZELCMXIDFIJUCYHVD7408-90-59V28:19:1 91.2.840.437430.1.72.3.15|1.2.840.1143 50.1.13.104.2.7.2.727879_[id number] [facility] 2022-11-29 11:54:40 zIJ/prpQLYWhrKOb417I8taOJ78jpX4m2Gcua/ TSuiKD+XxnL5x+6/R5GDVbEwUW9641-57-25D9 1:54:40 Patient reports that she has been not feeling well today. Reports a scratchy throat and that she can't burp. Additionally feels an occasional fluttering in her chest every few hours. Denies chest pain 04169-9Wkfyffxau department Triage kvbjXF6771-29-60C21:55:47[facility] Triage noteTXT1.2.840.663606.1.13.104.2.7.2.7 41285|[id number] for patient nrfb79046-9Pkhgurkzh department AvufKO988509183Hurt M Hayes RN[address] [id number] HQIAUVUDRQJCHXBKRZBO2958-31-90R79:55:4 71.2.840.663496.1.72.3.15|1.2.840.1143 50.1.13.104.2.7.2.727879_[id number] Ivette Atkinson RN [facility] 2022-11-29 11:52:00 +wTmexCjkiGvpBYuLmp6/cAUcHuwaehqV0hymJ 7y07cd1/tG0bjyPHaml7gY72PH5195-24-32T0 1:52:00 [facility] Emergency Department NotePatient Name: Yamile Thibodeaux of : 1950 72 year old femaleTreatment Room: [place] [address]Medical Record Number: [id number] Care Physician: Sheng AbrahamPatient Escorted by: Self [9]Mode of Arrival: Personal means [1]EMS Treatment Prior to ED Arrival: Exam Limited by: none Travel and Exposure Screening:SymptomsDoes patient have any of these symptoms?: (not recorded)Exposure ScreeningHas patient had contact with someone with a communicable disease in the last month?: (not recorded)Diseases exposed to:: (not recorded)Is Patient ?: (not recorded)Exposure Date: (not recorded)Chief Complaint:Chief Complaint Patient presents with Throat Problem Scratchy / can't burp History of Present Illness: Patient reports that she has been not feeling well today. Reports a scratchy throat and that she can't burp. She states she feels something "coming up" to her mid throat but nothing ever comes out. She has tried [place] with little relief. No problems with BMs or feelings of constipation. She is still passing gas. She admits to eating late last night, which she thinks may have contributed to the symptoms. She does not take any regular meds for heartburn. Additionally feels an occasional fluttering in her chest every 5-6 hours, which seems to be related to the other symptoms. She has also had sinus drainage the last several days which she treats with Claritin. Denies chest pain, shortness of breath, sore throat, choking, cough, abdominal pain, nausea, vomiting, diarrhea, fever, chills. No known ill contacts & no recent travel. She does report that her about 1 month ago after 48 years of marriage and "this has been difficult" but she has a lot of family and friends who are helping her through it.Review of Systems: Review of Systems Constitutional: Negative for appetite change and fever. SEE HPI for other pertinent positives & negatives. HENT: Positive for postnasal drip and rhinorrhea. Negative for congestion, ear pain, sinus pressure and sore throat. Respiratory: Negative for cough, chest tightness and shortness of breath. Cardiovascular: Positive for palpitations. Negative for chest pain and leg swelling. Gastrointestinal: Negative for abdominal pain, constipation, diarrhea, nausea and vomiting. Genitourinary: Negative for dysuria and hematuria. Musculoskeletal: Negative for arthralgias, back pain and myalgias. Skin: Negative for rash and wound. Neurological: Negative for dizziness, weakness and headaches. Psychiatric/Behavioral: Positive for dysphoric mood. Negative for suicidal ideas. Past Medical History/Immunizations:Past Medical History: Diagnosis Date Depression Heart murmur Hypertension Problem List:There is no problem list on file for this patient.Allergies:No Known AllergiesPast Social History:Tobacco Use Never smoked or used smokeless tobacco. Alcohol Use Not Currently. Drug Use Never. Sexual Activity Sexually active; Partners: Male. Past Surgical History:Past Surgical History: Procedure Laterality Date CYST EXCISION wrist left TUBAL LIGATION Physical Exam: ED Triage Vitals [11/29/22 1156] Weight 77.1 kg (170 lb) Actual or estimated Estimated by patient/family report Height 1.753 m (5' 9") BP (!) 141/81 Pulse 62 Resp 20 Temp 37.3 ?C (99.2 ?F) Temp source Oral SpO2 99 % Measured on Room air Physical ExamVitals and nursing note reviewed. Constitutional: General: She is awake. She is not in acute distress. Appearance: Normal appearance. She is well-developed and normal weight. She is not ill-appearing. HENT: Head: Normocephalic and atraumatic. Right Ear: Tympanic membrane, ear canal and external ear normal. Left Ear: External ear normal. There is impacted cerumen. Nose: Nose normal. Mouth/Throat: Mouth: Mucous membranes are moist. No injury. Pharynx: Posterior oropharyngeal erythema present. No pharyngeal swelling or oropharyngeal exudate. Tonsils: No tonsillar exudate. Eyes: General: No scleral icterus. Extraocular Movements: Extraocular movements intact. Cardiovascular: Rate and Rhythm: Normal rate and regular rhythm. Heart sounds: No murmur heard. No gallop. Pulmonary: Effort: Pulmonary effort is normal. No accessory muscle usage, respiratory distress or retractions. Breath sounds: Normal breath sounds and air entry. No decreased breath sounds, wheezing, rhonchi or rales. Chest: Chest wall: No deformity or tenderness. Abdominal: General: There is no distension. Palpations: Abdomen is soft. Abdomen is not rigid. Tenderness: There is no abdominal tenderness. There is no guarding or rebound. Musculoskeletal: General: No tenderness or deformity. Normal range of motion. Cervical back: Full passive range of motion without pain and neck supple. No muscular tenderness. Right lower leg: No tenderness. No edema. Left lower leg: No tenderness. No edema. Skin: General: Skin is warm and dry. Findings: No erythema or rash. Neurological: General: No focal deficit present. Mental Status: She is alert and oriented to person, place, and time. Psychiatric: Attention and Perception: She is attentive. Mood and Affect: Mood normal. Affect is blunt. Speech: Speech normal. Behavior: Behavior normal. Behavior is cooperative. Cognition and Memory: Cognition and memory normal. Radiology: (Reviewed by me)No results found for this visit on 11/29/22.Lab Results (24h): (Reviewed by me)No results found for this or any previous visit (from the past 24 hour(s)).EKG: (interpreted by me)Sinus edmund rhythm, normal axis, no ST/T wave changesRate: 57Compared to EKG from 10/06/2021, this EKG is unchanged.Orders and Treatments:No orders of the defined types were placed in this encounter.Orders Placed This Encounter Medications sucralfate (CARAFATE) 100 mg/mL suspension 1,000 mg alum-mag hydroxide-simeth (MAALOX PLUS / MAG-AL PLUS) 200-200-20 mg/5 mL suspension 30 mL ED COURSEED Course as of 11/29/22 1310 Sat Nov 29, 2022 1309 The patient is feeling better after the medications. States the meds made her burp more, which is helping. Will discharge with sucralfate suspension before every meal and nightly for the next few days as needed. Discussed not eating late at night. Patient also given information on the grief process. PCP follow-up as needed. Return precautions given. [LS] 1239 EKG is unchanged from previous 14 months ago. No indication for further cardiac investigation at this time. [LS] ED Course User Index[LS] Kobe Toussaint MD Diagnosis/Impression as of 11/29/22 1310 Palpitation Gastroesophageal reflux disease, unspecified whether esophagitis present Grief reaction Impacted cerumen of left ear Diagnosis/Impression: ICD-10-CM 1. Palpitation R00.2 Disposition/Condition:ED Disposition None Discharge Medications:Patient's Medications START taking these medications No medications on file CONTINUE taking these medications which have NOT CHANGED AMLODIPINE 10 MG TABLET Take 10 mg by mouth daily. ASPIRIN 325 MG TABLET Take 325 mg by mouth daily. ATORVASTATIN 20 MG TABLET Take 20 mg by mouth at bedtime. CARVEDILOL 25 MG TABLET Take 25 mg by mouth 2 (two) times daily. DULOXETINE 60 MG CAPSULE TAKE 1 CAPSULE BY MOUTH EVERY DAY WITH FOOD ERGOCALCIFEROL, VITAMIN D2, (VITAMIN D ORAL) Take by mouth. IRBESARTAN-HYDROCHLOROTHIAZIDE 300-12.5 MG PER TABLET Take 1 tablet by mouth daily. MONTELUKAST 10 MG TABLET Take 10 mg by mouth. START taking Modified Medications as Prescribed No medications on file STOP taking these medications No medications on file Follow-up:MDM: Medical Decision MakingThe DDx of a sore throat includes tonsillitis, pharyngitis, aphthous ulcers, pemphigus, erythema multiforme, cervical spine pain, blood dyscrasias, thyroiditis, reflux esophagitis, lymphoma, cancers.This patient has also been experiencing "fluttering" in her chest, which could be palpitations, although it is more likely to be GI related given the timing and description of the symptoms. Will check an EKG.We will try a dose of sucralfate and GI cocktail and then watch her for a short time to see if she finds any relief.See ED courseAmount and/or Complexity of Data ReviewedExternal Data Reviewed: labs, ECG and notes.ECG/medicine tests: ordered and independent interpretation performed. Details: See aboveRiskOTC drugs.Prescription drug management.History, physical exam findings, results of visit, differential diagnosis, medication regimens and plan of future care have been considered. Additional MDM may be found in the ED course. Differential diagnosis considered and final disposition made based on information gathered during evaluation and may not be completely ruled out. Vital signs were rechecked before final disposition and determined to be stable. Portions of this note were completed using [employer].Occasional phonetic or grammatical errors may escape proofreading. Electronically signed by: Kobe Toussaint M.D., FACEPAssistant Clinical Professor of Emergency Medicine 11/29/2022 12:06 PM Kobe Toussaint MD11/29/22 1311 [id number] [id number]:11:13Physician Emergency department [id number] for patient [id number] department NoteLN[address] [id number]:11:1 [id number] [facility] [place]
[2023-07-24 21:07] LABS: Absolute Basophils 0.1 K/uL (0-0.5); Absolute Eosinophils 0.2 K/uL (0-0.5); Absolute Lymphocytes (CBC) 1.9 K/uL (0.7-4.9); Absolute Monocytes 0.6 K/uL (0.1-1.3); Absolute Neutrophil 2.3 K/uL (1.8-8.0); Basophils % 1.1 % (0-1.3); Eosinophils % 3.3 % (0-4.4); Hematocrit 34.6 % (36.0-45.0); Hemoglobin 11.5 g/dL (12.0-15.0); Lymphocytes % 38.6 % (15.3-44.8); MCH 30.5 pg (27.0-35.0); MCHC 33.4 g/dL (32.0-36.0); MCV 91.5 fL (80-100); Monocytes % 11.5 % (3.3-12.3); Neutrophils % 45.5 % (41.7-73.7); Nucleated Red Blood Cells % 0.1 % (0-0); Platelets 294 thou/uL (152-406); RBC Red Blood Cell Count 3.78 M/uL (3.86-4.86); Red Cell Distribution Width 14.3 % (12.1-15.2)
[2023-07-24 21:17] LABS: PT Prothrombin Time 27.1 SECONDS (9.5-12.5); Protime INR 2.53
[2023-07-24 21:17] LABS: SARS-CoV-2 Antigen CONTROL BLUE LINE VIS/BG OK; SARS-CoV-2 Antigen Rapid Res Negative (Negative)
--- NOTE | 2023-07-24 21:49 | RAD REPORT ---
EXAM DESCRIPTION: RAD - Chest Single View - 07/24/2023 9:33 pm CLINICAL HISTORY: CHEST PAIN COMPARISON: Chest Single View dated 04/10/2023; CHEST PA AND LAT 2 VIEW dated 10/06/2012; CHEST PA AN D LAT 2 VIEW dated 11/20/2011 FINDINGS: Lines: None. Lungs: No evidence of edema or pneumonia. Scattered calcified pulmonary nodules. Pleural: No significant pleural effusions or pneumothorax. Cardiac: The heart size is within normal limits. Mediastinum: Within normal limits. Bones: No acute fractures. Other: None IMPRESSION: No acute cardiopulmonary disease.
[2023-07-24 21:51] LABS: Albumin 3.5 g/dL (3.4-5.0); Albumin/Globulin Ratio 0.8 (1.1-1.8); Anion Gap 9.4 mEq/L (5.0-15.0); Bilirubin Direct 0.1 mg/dL (0-0.2); Bilirubin Indirect, Calculated 0.2 mg/dL (0.2-0.8); Bilirubin Total 0.3 mg/dL (0.2-1.0); Globulin 4.6 g/dL (2.3-3.5); Magnesium 1.6 mg/dL (1.6-2.4); Potassium 3.4 mEq/L (3.5-5.1); Protein, Total 8.1 g/dL (6.4-8.2); Troponin High Sensitivity 5.2 pg/mL (<58.9)
--- NOTE | 2023-07-24 23:29 | ER ---
Nurse's Notes [facility] Name: Yamile Daugherty Age: 73 yrs Sex: Female : 1950 Arrival Date: 07/24/2023 Time: 20:21 Bed 3 Private MD: Diagnosis: Angina pectoris, unspecified Presentation: 07/23 20:37 Chief complaint: Patient states: I have been having chest pain on an off for the past jb4 week. This episode started about an hour ago. Its a dull pain that is a 3/10 that comes and goes. I was recently released from [facility]. Coronavirus screen: At this time, the client does not indicate any symptoms associated with coronavirus-19. Ebola Screen: No symptoms or risks identified at this time. Initial Sepsis Screen: Does the patient meet any 2 criteria? No. Patient's initial sepsis screen is negative. Does the patient have a suspected source of infection? No. Patient's initial sepsis screen is negative. Risk Assessment: Do you want to hurt yourself or someone else? Patient reports no desire to harm self or others. Onset of symptoms was July 24, 2023. Transition of care: patient was not received from another setting of care. 20:37 Method Of Arrival: Wheelchair jb4 20:37 Acuity: ALESIA 3 jb4 Triage Assessment: 20:41 General: Appears in no apparent distress. comfortable, Behavior is calm, cooperative, jb4 appropriate for age. Pain: Complains of pain in chest Pain does not radiate. Pain currently is 3 out of 10 on a pain scale. Quality of pain is described as dull, Pain began 1 hour ago. Cardiovascular: Patient's skin is warm and dry. Rhythm is sinus rhythm. Historical: - Allergies: 20:41 No Known Allergies; jb4 - Home Meds: 20:38 carvedilol 25 mg Oral tablet 2 times per day [Active]; Eliquis 5 mg oral tablet 1 tab cm10 [Active]; irbesartan-hydrochlorothiazide 300-12.5 mg Oral tablet daily [Active]; hydralazine 10 mg oral tablet 1 tab 2 times per day [Active]; atorvastatin 20 mg Oral tablet daily [Active]; hydroxyzine HCl 25 mg oral tablet 1 tab Every 8 hours as needed [Active]; amlodipine 10 mg tablet daily [Active]; - PMHx: 20:41 Hypertension; irregular heartbeat; jb4 - PSHx: 20:41 wrist - left; jb4 - Immunization history:: Adult Immunizations up to date, Pneumococcal vaccine is not up to date, Flu vaccine is up to date. - Infectious Disease History:: Denies. - Social history:: Smoking status: Patient denies any tobacco usage or history of. Screenin:53 [facility] ED Fall Risk Assessment (Adult) History of falling in the last 3 months, cm10 including since admission No falls in past 3 months (0 pts) Confusion or Disorientation No (0 pts) Intoxicated or Sedated No (0 pts) Impaired Gait No (0 pts) Mobility Assist Device Used No (0 pt) Altered Elimination No (0 pt) Score/Fall Risk Level 0 - 2 = Low Risk Oriented to surroundings, Maintained a safe environment, Hourly rounding (assess needs \T\ fall precautionary measures) done. Abuse screen: Denies threats or abuse. Denies injuries from another. Nutritional screening: No deficits noted. Tuberculosis screening: No symptoms or risk factors identified. Assessment: 20:50 General: Appears in no apparent distress. comfortable, Behavior is calm, cooperative. cm10 Pain: Complains of pain in chest Pain currently is 3 out of 10 on a pain scale. Quality of pain is described as dull, Pain began gradually, Is intermittent. Pain: Pain does not radiate. Neuro: No deficits noted. Level of Consciousness is awake, alert, obeys commands, Oriented to person, place, time, situation. Cardiovascular: No deficits noted. Patient's skin is warm and dry. Rhythm is sinus rhythm Chest pain is described as mild, quality is Dull is located in substernal area. Respiratory: No deficits noted. Airway is patent Respiratory effort is even, unlabored, Respiratory pattern is regular, symmetrical. Derm: No deficits noted. Skin is intact, Skin is pink, warm \T\ dry. Musculoskeletal: No deficits noted. Range of motion: intact in all extremities. 21:45 Reassessment: Patient appears in no apparent distress at this time. No changes from km8 previously documented assessment. Patient and/or family updated on plan of care and expected duration. Pain level reassessed. Patient is alert, oriented x 3, equal unlabored respirations, skin warm/dry/pink. 23:47 Reassessment: Patient appears in no apparent distress at this time. No changes from km8 previously documented assessment. Patient and/or family updated on plan of care and expected duration. Pain level reassessed. Patient is alert, oriented x 3, equal unlabored respirations, skin warm/dry/pink. Vital Signs: 20:37 BP 155 / 77; Pulse 82; Resp 16; Temp 98.4(O); Pulse Ox 100% on R/A; Weight 77.11 kg jb4 (R); Height 5 ft. 9 in. ; Pain 3/10; 21:00 BP 137 / 73; Pulse 70; Resp 14; Pulse Ox 100% on R/A; cm10 21:30 BP 151 / 84; Pulse 68; Resp 14; Pulse Ox 100% on R/A; cm10 22:00 BP 140 / 72; Pulse 69; Resp 15; Pulse Ox 100% on R/A; cm10 22:30 BP 130 / 72; Pulse 66; Resp 15; Pulse Ox 100% on R/A; cm10 23:00 BP 146 / 74; Pulse 69; Resp 16; Pulse Ox 100% on R/A; cm10 23:30 BP 137 / 79; Pulse 63; Resp 16; Pulse Ox 99% on R/A; cm10 04 00:00 BP 144 / 73; Pulse 66; Resp 16; Pulse Ox 100% on R/A; cm10 00:30 BP 138 / 68; Pulse 64; Resp 18; Pulse Ox 99% on R/A; cm10 01:00 BP 137 / 67; Pulse 62; Resp 18; Pulse Ox 100% on R/A; cm10 07/23 20:37 Body Mass Index 25.10 (77.11 kg, 175.26 cm) [facility] 07/23 20:37 Pain Scale: Adult jb4 ED Course: 07/23 20:24 Patient arrived in ED. jj6 20:28 Blaine Butler PA is PHCP. cp 20:28 Smith Badillo MD is Attending Physician. cp 20:28 Ilia Pathak MD is Attending Physician. cp 20:40 Initial lab(s) drawn, by me, sent to lab. EKG done, by ED staff, reviewed by Blaine Butler bmHoward PA. Inserted saline lock: 20 gauge in left antecubital area, using aseptic technique. Blood collected. O2 via n/a at this time. 20:41 Triage completed. jb4 20:41 Arm band placed on right wrist. EKG completed in triage. Results shown to MD. jb4 20:53 Patient has correct armband on for positive identification. Placed in gown. Bed in low cm10 position. Call light in reach. Side rails up X 1. Provided Education on: ER process and procedures.. Client placed on continuous cardiac and pulse oximetry monitoring. NIBP monitoring applied. gambling monitor on. Door closed. Warm blanket given. 21:35 XRAY Chest (1 view) In Process Unspecified. EDMS 21:45 Patient requests rest room assistance. km8 21:45 Awaiting lab results. km8 23:29 Sheng Abraham MD is Hospitalizing Provider. cp 23:47 Patient requests rest room assistance. km8 23:48 No provider procedures requiring assistance completed. Patient admitted, IV remains in km8 place. 07/24 01:23 Report faxed to 4th floor at 0112. Nurse contacted to confirm report was received at [facility] 0113. Administered Medications: 07/23 20:39 Drug: Aspirin PO Chewable Tablet 324 mg PO once; 81 mg tablets x 4 Route: PO; bm8 21:52 Follow up: Response: No adverse reaction [facility] 07/24 01:28 Not Given (Other Intervention Used): nitroglycerin0.4 mg Sublingual once cm10 Medication: 07/23 20:53 VIS not applicable for this client. cm10 Outcome: 23:29 Decision to Hospitalize by Provider. cp 07/24 01:23 Admitted to Tele accompanied by tech, via wheelchair, room 423, cm10 Condition: good Instructed on the need for admit, 01:44 Patient left the ED. cm10 Signatures: Dispatcher [employer] EDMS lBaine Butler PA PA cp Bryson, James, RN RN jb4 Eleanor Levy jj6 Flory Muller, RN RN 10 Jaja Pulido, GLENROY RN 8 Yossi Meza, RN RN 8
--- NOTE | 2023-07-24 23:30 | EDPHYS ---
Physician Documentation [facility] Name: Yamile Daugherty Age: 73 yrs Sex: Female : 1950 Arrival Date: 07/24/2023 Time: 20:21 Bed 3 Private MD: ED Physician Ilia Pathak HPI: 07/23 20:45 This 73 yrs old Black Female presents to ER via Wheelchair with complaints of Chest cp Pain, Nausea/Vomiting. 20:45 The patient or guardian reports chest pain that is located primarily in the anterior cp chest wall, left. Onset: intermittent for past 1 week, returned 1 hour ago. The chest pain is described as dull. Severity of pain: in the emergency department the pain has improved moderately, took nitro. 20:45 Associated signs and symptoms: Pertinent positives: cough, nausea, vomiting, Pertinent cp negatives: lower extremity pain, lower extremity swelling, syncope. Historical: - Allergies: 20:41 No Known Allergies; jb4 - Home Meds: 20:38 carvedilol 25 mg Oral tablet 2 times per day [Active]; Eliquis 5 mg oral tablet 1 tab cm10 [Active]; irbesartan-hydrochlorothiazide 300-12.5 mg Oral tablet daily [Active]; hydralazine 10 mg oral tablet 1 tab 2 times per day [Active]; atorvastatin 20 mg Oral tablet daily [Active]; hydroxyzine HCl 25 mg oral tablet 1 tab Every 8 hours as needed [Active]; amlodipine 10 mg tablet daily [Active]; - PMHx: 20:41 Hypertension; irregular heartbeat; jb4 - PSHx: 20:41 wrist - left; jb4 - Immunization history:: Adult Immunizations up to date, Pneumococcal vaccine is not up to date, Flu vaccine is up to date. - Infectious Disease History:: Denies. - Social history:: Smoking status: Patient denies any tobacco usage or history of. ROS: 20:50 Constitutional: Negative for body aches, chills, fever, poor PO intake, cp 20:50 Eyes: Negative for injury, pain, redness, and discharge, cp 20:50 Cardiovascular: Positive for chest pain, Negative for edema, palpitations, 20:50 Respiratory: Positive for cough, Negative for shortness of breath, wheezing, 20:50 Abdomen/GI: Positive for nausea, Negative for active vomiting, 20:50 Back: Negative for pain at rest, pain with movement, 20:50 : Negative for urinary symptoms, 20:50 Neuro: Negative for altered mental status, dizziness, headache, numbness, syncope, weakness, 20:50 All other systems are negative, Exam: 20:38 ECG was reviewed by the Attending Physician. cp 20:55 Constitutional: The patient appears in no acute distress, alert, awake, cp non-diaphoretic, non-toxic, well developed, well nourished, 20:55 Head/Face: Normocephalic, atraumatic. cp 20:55 Eyes: Periorbital structures: appear normal, Conjunctiva: normal, no exudate, no injection, Sclera: no appreciated abnormality, Lids and lashes: appear normal, bilaterally, 20:55 ENT: External ear(s): are unremarkable, Nose: is normal, Mouth: Lips: moist, Oral mucosa: moist, Posterior pharynx: Airway: no evidence of obstruction, patent, 20:55 Neck: ROM/movement: is normal, is supple, without pain, 20:55 Chest/axilla: Inspection: normal, 20:55 Cardiovascular: Rate: normal, Rhythm: regular, Edema: is not appreciated, JVD: is not appreciated, 20:55 Respiratory: the patient does not display signs of respiratory distress, Respirations: normal, no use of accessory muscles, no retractions, labored breathing, is not present, Breath sounds: are clear throughout, no decreased breath sounds, no stridor, no wheezing, 20:55 Abdomen/GI: Inspection: abdomen appears normal, Palpation: abdomen is soft and non-tender, in all quadrants, 20:55 Back: pain, is absent, ROM is normal, 20:55 Neuro: Orientation: to person, place \T\ time. Mentation: is normal, Motor: moves all fours, strength is normal, Sensation: is normal, Vital Signs: 20:37 BP 155 / 77; Pulse 82; Resp 16; Temp 98.4(O); Pulse Ox 100% on R/A; Weight 77.11 kg jb4 (R); Height 5 ft. 9 in. ; Pain 3/10; 21:00 BP 137 / 73; Pulse 70; Resp 14; Pulse Ox 100% on R/A; cm10 21:30 BP 151 / 84; Pulse 68; Resp 14; Pulse Ox 100% on R/A; cm10 22:00 BP 140 / 72; Pulse 69; Resp 15; Pulse Ox 100% on R/A; cm10 22:30 BP 130 / 72; Pulse 66; Resp 15; Pulse Ox 100% on R/A; cm10 23:00 BP 146 / 74; Pulse 69; Resp 16; Pulse Ox 100% on R/A; cm10 23:30 BP 137 / 79; Pulse 63; Resp 16; Pulse Ox 99% on R/A; cm10 04 00:00 BP 144 / 73; Pulse 66; Resp 16; Pulse Ox 100% on R/A; cm10 00:30 BP 138 / 68; Pulse 64; Resp 18; Pulse Ox 99% on R/A; cm10 01:00 BP 137 / 67; Pulse 62; Resp 18; Pulse Ox 100% on R/A; cm10 07/23 20:37 Body Mass Index 25.10 (77.11 kg, 175.26 cm) [facility] 07/23 20:37 Pain Scale: Adult jb4 MDM: 07/23 20:28 Patient medically screened. cp 21:00 Differential diagnosis: abnormal EKG, acute myocardial infarction, pancreatitis, cp pleurisy, pneumonia, pneumothorax, pulmonary embolus, stable angina, thoracic aortic disection, unstable angina. 22:30 Data reviewed: vital signs, nurses notes, lab test result(s), EKG, radiologic studies, cp plain films. 22:30 The patient was given aspirin in the Emergency Department. 23:30 Management of patient was discussed with the following: Primary Care Provider: DR Abraham who will admit after discussion. 07/23 20:39 Order name: Basic Metabolic Panel; Complete Time: 22:27 cp 07/23 22:28 Interpretation: Normal except: K 3.4; GLUC 127; BUN 25; GFR 62. cp 07/23 20:39 Order name: CBC with Diff; Complete Time: 22:27 cp 07/23 20:39 Order name: LFT's; Complete Time: 22:27 cp 07/23 20:39 Order name: Magnesium; Complete Time: 22:27 cp 07/23 20:39 Order name: NT PRO-BNP; Complete Time: 22:27 cp 07/23 20:39 Order name: PT-INR; Complete Time: 22:27 cp 07/23 20:39 Order name: Troponin HS; Complete Time: 22:27 cp 07/23 20:40 Order name: SARS RAPID; Complete Time: 22:27 cp 07/23 20:40 Order name: Influenza Screen (a \T\ B); Complete Time: 22:27 cp 07/24 01:05 Order name: Basic Metabolic Panel EDMS 07/24 01:05 Order name: Basic Metabolic Panel EDMS 07/24 01:05 Order name: CBC with Automated Diff EDMS 07/24 01:05 Order name: CBC with Automated Diff EDMS 07/24 01:05 Order name: Troponin High Sensitivity EDMS 07/24 01:05 Order name: Troponin High Sensitivity EDMS 07/24 01:05 Order name: Troponin High Sensitivity EDMS 07/24 01:05 Order name: Troponin High Sensitivity EDMS 07/23 20:39 Order name: XRAY Chest (1 view); Complete Time: 22:27 cp 07/23 20:39 Order name: EKG; Complete Time: 20:40 cp 07/24 01:05 Order name: EKG Electrocardiogram EDMS 07/24 01:05 Order name: EKG Electrocardiogram EDMS 07/24 01:05 Order name: EKG Electrocardiogram EDMS 07/24 01:05 Order name: EKG Electrocardiogram EDMS 07/23 20:32 Order name: EKG - Nurse/Tech; Complete Time: 20:40 cp 07/23 20:39 Order name: Cardiac monitoring; Complete Time: 20:40 cp 05 20:39 Order name: IV Saline Lock; Complete Time: 20:40 cp 07/23 20:39 Order name: Labs collected and sent; Complete Time: 20:40 cp 07/23 20:39 Order name: O2 Per Protocol; Complete Time: 20:40 cp 07/23 20:39 Order name: O2 Sat Monitoring; Complete Time: 20:40 cp EC:38 Rate is 78 beats/min. Rhythm is regular. DC interval is normal. QRS interval is normal. cp QT interval is normal. T waves are Inverted in lead aVR. Interpreted by me. Reviewed by me. Administered Medications: 20:39 Drug: Aspirin PO Chewable Tablet 324 mg PO once; 81 mg tablets x 4 Route: PO; bm8 21:52 Follow up: Response: No adverse reaction 8 07/24 01:28 Not Given (Other Intervention Used): nitroglycerin0.4 mg Sublingual once cm10 Disposition: 07/25 00:52 Co-signature as Attending Physician, Ilia Pathak MD I reviewed the patient's care rt provided by the Advanced Practice Provider and agree with the diagnosis and treatment plan. Disposition Summary: 07/24/23 23:29 Hospitalization Ordered Notes: Hospitalization Status: Observation cp Provider: Sheng Abraham cp Location: Telemetry/MedSurg (observation) cp Condition: Stable cp Problem: new cp Symptoms: have improved cp Bed/Room Type: Standard cp Room Assignment: 423(07/25/23 01:07) jb4 Diagnosis - Angina pectoris, unspecified cp Forms: - Medication Reconciliation Form cp - SBAR form cp - Leadership Thank You Letter cp Signatures: Dispatcher [employer] EDMS Blaine Butler PA PA cp Darío Valero, RN RN jb4 Ilia Pathak MD MD rt Flory Muller RN RN cm10 Yossi Meza RN RN bm8 Jaja Pulido RN km8 Corrections: (The following items were deleted from the chart) 07/23 20:40 20:40 BASIC METABOLIC PANEL+C.LAB.BRZ ordered. EDMS EDMS 20:40 20:40 CBC+H.LAB.BRZ ordered. EDMS EDMS 20:40 20:40 HEPATIC FUNCTION+C.LAB.BRZ ordered. EDMS EDMS 20:40 20:40 MAGNESIUM+C.LAB.BRZ ordered. EDMS EDMS 20:40 20:40 PROBNP+C.LAB.BRZ ordered. EDMS EDMS 20:40 20:40 PROTIME (+INR)+COAG.LAB.BRZ ordered. EDMS EDMS 20:40 20:40 Troponin High Sensitivity+C.LAB.BRZ ordered. EDMS EDMS 20:41 20:41 SARS-COV-2 Antigen Rapid+I.LAB.BRZ ordered. EDMS EDMS 20:41 20:41 Influenza Screen (A \T\ B)+BA.LAB.BRZ ordered. EDMS EDMS 07/24 01:07 04 23:29 cp jb4
[2023-07-25] MEDS ORDERED: ONDANSETRON 4 MG/2 ML VIAL IV PRN (00:58)
[2023-07-25] MEDS ORDERED: MORPHINE 4 MG/ML SYR IV PRN (00:58)
[2023-07-25 03:11] VITALS: BMI 23.4
[2023-07-25 08:15] VITALS: O2SAT 100
[2023-07-25] MEDS: ASPIRIN EC 81 MG TAB PO SCH (10:02)
--- NOTE | 2023-07-25 10:50 | P.SSS ---
Patient History Date of Service: 07/25/23 Reason for admission: PALPITATIONS History of Present Illness: ALBERTO HAS HAD HTN, RECENT VISIT TO ER IN [facility], SAW DR. ALVES IN HOSPITAL, WAS DIAGNOSED WITH A FIB AND GIVEN B MAN WITH ELIQUIS. SHE HAS SEVERE ANXIETY AND WORRED ABOUT EVERY PALIPITATION. SHE IS IN NSR FOR NOW, HAS NORMAL CE. ADMITS TO SEVERE ANXIETY. I ADDED ZOLOFT AND BUSPAR. I EXPLAINED ABOUT PALPITATIONS AND A FIB. SHE NOW FEELS LOT BETTER WITH SOMEONE EXPLAINING TO HER. SHE IS STABLE TO GO HOME AND FU WITH DR. ALVES. Allergies No Known Allergies Allergy (Unverified 07/25/23 02:19) Home Medications: Amlodipine Besylate 10 mg PO DAILY 07/25/23 Apixaban [Eliquis] 5 mg PO BID 07/25/23 Atorvastatin Calcium [Lipitor*] 20 mg PO DAILY 07/25/23 Buspirone HCl [Buspar] 5 mg PO BID #30 tab 07/25/23 Carvedilol [Coreg] 25 mg PO BID 07/25/23 Irbesartan/Hydrochlorothiazide [Avalide 300-12.5 mg Tablet] 1 tab PO DAILY 07/25/23 Levofloxacin [Levaquin] 500 mg PO DAILY 07/25/23 Nitroglycerin [Nitrostat*] 0.4 mg SL DIRECTED PRN 07/25/23 Sertraline [Zoloft*] 25 mg PO DAILY #30 tab 07/25/23 - Past Medical/Surgical History Diabetic: No -: hypertension -: hyperlipdemia -: tubal ligation -: right wrist cyst removal - Family History Mother -: Heart disease, Hypertension, Stroke Father -: Heart disease, Hypertension Brother -: Heart disease, Hypertension - Social History Smoking Status: Never smoker Alcohol use: No CD- Drugs: No Caffeine use: No Place of Residence: Home Review of Systems 10-point ROS is otherwise unremarkable General: Weakness Physical Examination - Vital Signs Temperature: 98.4 F Blood Pressure: 137/67 Pulse: 62 Respirations: 18 Pulse Ox (%): 98 - Physical Exam General: Alert, In no apparent distress HEENT: Atraumatic, PERRLA, Mucous membr. moist/pink, EOMI, Sclerae nonicteric Neck: Supple, 2+ carotid pulse no bruit, No LAD, Without JVD or thyroid abnormality Respiratory: Clear to auscultation bilaterally, Normal air movement Cardiovascular: Regular rate/rhythm, Normal S1 S2 Gastrointestinal: Normal bowel sounds, No tenderness Musculoskeletal: No tenderness Integumentary: No rashes Neurological: Normal gait, Normal speech, Normal strength at 5/5 x4 extr, Normal tone, Normal affect Lymphatics: No axilla or inguinal lymphadenopathy - Studies Laboratory Data (last 24 hrs) 07/24/23 07/24/23 07/24/23 20:42 20:42 20:42 WBC 5.00 Hgb 11.5 L Hct 34.6 L Plt Count 294 PT 27.1 H INR 2.53 Sodium 137 Potassium 3.4 L BUN 25 H Creatinine 0.98 Glucose 127 H Magnesium 1.6 Total Bilirubin 0.3 AST 16 ALT 21 Alkaline Phosphatase 105 Microbiology Data (last 24 hrs): 07/24/23 20:45 Nasopharnyx Influenza Type A Antigen Screen - Final 07/24/23 20:45 Nasopharnyx Influenza Type B Antigen Screen - Final - Diagnosis (Problem(s)) (1) Palpitations Current Visit: Yes Status: Acute Plan: MOSTLY FROM ANXIETY. SHE HAS A FIB BUT NOT THIS ADMISSION. CONT MEDS ADD ZOLOFT BUSPAR (2) A-fib Current Visit: Yes Status: Chronic Plan: RECEENT DIAGNOSIS FU WITH DR ALVES 2 WEEKS OLD DIAG. (3) Generalized anxiety disorder Current Visit: Yes Status: Acute - Disposition Disposition: ROUTINE DISCHARGE Condition: FAIR
[2023-07-25] MEDS: POTASSIUM CL SA 10 MEQ TAB PO ONE (10:57)
[2023-07-25 12:23] VITALS: BP 132/65
[2023-07-25 12:55] VITALS: TEMP 97.7
--- NOTE | 2023-07-25 14:27 | CON ---
Date of Consultation: 07/25/2023 Reason For Consultation: Chest pain. History Of Present Illness: This is a 73-year-old female, who follows up with a java systems analyst in [facility]. Has a history of dyslipidemia and hypertension. Presented with chest pain in the right side, also in the left side. She was apparently diagnosed with atrial fibrillation recently. She is on El iquis and beta-keira. She does have significant anxiety disorder and since hospitalization, chest pain is resolved and never came back and feels well and wants to go home. Past Medical History: As outlined above in the HPI. Medications: Refer reconciliation sheet for detailed list. Allergies: NO KNOWN DRUG ALLERGIES. Family History: No premature coronary artery disease or cancer. Social History: She does not smoke or drink. Does not use any drugs. Review of Systems: All systems reviewed were negative except mentioned in HPI. Physical Examination: Vital Signs: Reviewed. Head and Neck: Pupils are equal, reactive to light. Intact eye movements. No JVD. No cervical lym phadenopathy. Neck is supple. Thyroid is not enlarged. Lungs: Clear to auscultation bilaterally. No rhonchi, wheezing, or crackles. No accessory muscle u se. Heart: Regular rate and rhythm. No extra sounds. Abdomen: Soft, nontender. Bowel sounds positive. No organomegaly. No masses or hernia. No rigidi ty or rebound. Extremities: No edema, clubbing, cyanosis. Intact pulses. Skin: No rash or nodules. Neurologic: Alert, awake, oriented x3. No acute focal deficits appreciated. Investigations: BUN 25, creatinine 0.98. Hemoglobin is 11.5. Assessment/recommendation: 1.Chest pain, atypical. Negative cardiac enzymes. She can be released. Follow up with her primary java systems analyst to do a stress test. 2.Hypertension. Blood pressure is controlled. Continue current management. 3.Atrial fibrillation. She is in sinus. Continue home medications. She was instructed to follow u p with her primary care java systems analyst post discharge for a stress test. SR/MODL Voice ID: [id number] Report ID: [id number]
[2023-07-25] MEDS ORDERED: CARVEDILOL 25 MG PO SCH (21:00)
[2023-07-25] MEDS ORDERED: HOME MED 1 EA UNK (Apixaban [Eliquis] 5 MG Tablet) PO SCH (21:00)
[2023-07-26] MEDS ORDERED: ATORVASTATIN CALCIUM 20 MG PO SCH (09:00)
[2023-07-26] MEDS ORDERED: HOME MED 1 EA UNK (Irbesartan/Hydrochlorothiazide [Avalide 300-12.5 Mg Tablet] 1 EACH Tabl PO SCH (09:00)
[2023-07-26] MEDS ORDERED: LEVOFLOXACIN 500 MG PO SCH (09:00)
[2023-07-26] MEDS ORDERED: AMLODIPINE BESYLATE 10 MG PO SCH (09:00)
--- NOTE | 2023-07-27 12:50 | EKG ---
Test Date: 2023-07-24 Test Time: 20:30:28 Tan Room Supervisor: ROYCE MEASUREMENT RESULTS: Intervals: Rate: 78 NJ: 190 QRSD: 98 QT: 390 QTc: 444 [place]: P: 70 NJ: 190 QRS: 70 T: 38 INTERPRETIVE STATEMENTS: Normal sinus rhythm Normal ECG Compared to ECG 04/10/2023 13:33:15 Left ventricular hypertrophy no longer present Early repolarization no longer present Myocardial infarct finding no longer present Electronically Signed On 07-27-23 12:43:05 CDT by Jerod Bishop
== END 2023-07-25 14:00 | disposition home or self-care (01) ==
LOC: ER 20:21 → 4TH 07-25 00:55
PROVIDERS: ADMIT Internal Medicine; ATTEND Internal Medicine
DX: R00.2 Palpitations (principal); I48.11 Longstanding persistent atrial fibrillation; R07.9 Chest pain, unspecified; E78.5 Hyperlipidemia, unspecified; F41.9 Anxiety disorder, unspecified; I10 Essential (primary) hypertension; Z79.01 Long term (current) use of anticoagulants; Z11.52 Encounter for screening for COVID-19
CPT/HCPCS: 85025; 80048; 36415; 83735; 85610; 80076; 84484 ×3; 83880; 87804 ×2; 71045; 99285; 87811; G0378 ×2; 93005

== ENCOUNTER 2023-08-08 12:25 | Emergency (ER) | payer BC, OTHER ==
[2023-08-08 13:10] LABS: Absolute Basophils 0.1 K/uL (0-0.5); Absolute Eosinophils 0.2 K/uL (0-0.5); Absolute Lymphocytes (CBC) 1.6 K/uL (0.7-4.9); Absolute Monocytes 0.4 K/uL (0.1-1.3); Absolute Neutrophil 3.5 K/uL (1.8-8.0); Basophils % 1.1 % (0-1.3); Eosinophils % 3.6 % (0-4.4); Hematocrit 37.3 % (36.0-45.0); Hemoglobin 12.2 g/dL (12.0-15.0); Lymphocytes % 27.9 % (15.3-44.8); MCHC 32.6 g/dL (32.0-36.0); MPV 8.2 fL (7.6-11.3); Monocytes % 7.6 % (3.3-12.3); Neutrophils % 59.8 % (41.7-73.7); Platelets 345 thou/uL (152-406); RBC Red Blood Cell Count 4.06 M/uL (3.86-4.86); Red Cell Distribution Width 14.4 % (12.1-15.2)
[2023-08-08 13:31] LABS: Albumin 3.5 g/dL (3.4-5.0); Albumin/Globulin Ratio 0.7 (1.1-1.8); Anion Gap 8.2 mEq/L (5.0-15.0); Bilirubin Direct 0.1 mg/dL (0-0.2); Bilirubin Indirect, Calculated 0.3 mg/dL (0.2-0.8); Bilirubin Total 0.4 mg/dL (0.2-1.0); Globulin 4.9 g/dL (2.3-3.5); Magnesium 1.8 mg/dL (1.6-2.4); Potassium 3.2 mEq/L (3.5-5.1); Protein, Total 8.4 g/dL (6.4-8.2); Troponin High Sensitivity 6.5 pg/mL (<58.9)
[2023-08-08] MEDS ORDERED: ONDANSETRON 4 MG/2 ML VIAL ONE (13:40)
--- NOTE | 2023-08-08 14:23 | RAD REPORT ---
EXAM DESCRIPTION: CT - Chest For Pe Angio - 08/08/2023 2:01 pm CLINICAL HISTORY: CHEST PAIN COMPARISON: No comparisons TECHNIQUE: Thin axial CT images of the chest were obtained following administration of iodinated IV contrast. Multiplanar reconstructions, and maximum intensity projection reconstructions were generate d and reviewed. Exam utilizes a protocol for optimal evaluation of pulmonary arterial tree. All CT scans are performed using dose optimization technique as appropriate and may include automated exposure control or mA/KV adjustment according to patient size. FINDINGS: Pulmonary arteries are normal. No emboli or other suspicious finding. No acute or signific ant aorta findings. No mass or infiltrate in the lung parenchyma. No pleural thickening or pleural effusion. No pneumotho rax. No abnormal mediastinal or hilar masses or lymphadenopathy seen. No chest wall mass or abnormal axill iary lymphadenopathy. IMPRESSION: No evidence of acute central pulmonary emboli. Negative CT scan of the chest for other significant findings.
[2023-08-08] MEDS ORDERED: ACETAMINOPHEN 500 MG TAB ONE (14:42)
--- NOTE | 2023-08-08 15:18 | EDPHYS ---
Physician Documentation [facility] Name: Yamile Daugherty Age: 73 yrs Sex: Female : 1950 Arrival Date: 08/08/2023 Time: 12:25 Bed 7 Private MD: ED Physician Ilia Pathak HPI: 08/07 13:42 This 73 yrs old Black Female presents to ER via Wheelchair with complaints of chest rt fluttering,soreness. 13:42 Patient presents to the ED with reported chest pain on the left side worse with taking rt a deep breath as well as a fluttering sensation in her chest that was worse earlier this morning. States the symptoms has definitely improved, only mild soreness now when she takes a deep breath. Of note, patient had a recent PE. The patient is currently taking Eliquis. Denies other acute complaints at this time, symptoms are moderate in severity, no other aggravating or alleviating factors.. Historical: - Allergies: 12:46 No Known Allergies; iw - Home Meds: 15:39 amlodipine 10 mg tablet daily [Active]; atorvastatin 20 mg Oral tablet daily [Active]; bp carvedilol 25 mg Oral tablet 2 times per day [Active]; Eliquis 5 mg Oral tablet 1 tab [Active]; hydralazine 10 mg Oral tablet 1 tab 2 times per day [Active]; hydroxyzine HCl 25 mg Oral tablet 1 tab every 8 hours as needed [Active]; irbesartan-hydrochlorothiazide 300-12.5 mg Oral tablet daily [Active]; - PMHx: 12:46 Hypertension; irregular heartbeat; PE; iw - PSHx: 12:46 wrist - left; tibal; iw - Immunization history:: Adult Immunizations not up to date. - Infectious Disease History:: Denies. - Social history:: Smoking status: Patient denies any tobacco usage or history of. - Family history:: not pertinent. ROS: 13:42 Constitutional: Negative for fever, chills, and weight loss, Respiratory: Negative for rt shortness of breath, cough, wheezing, and pleuritic chest pain, Abdomen/GI: Negative for abdominal pain, nausea, vomiting, diarrhea, and constipation, MS/Extremity: Negative for injury and deformity, Skin: Negative for injury, rash, and discoloration, Neuro: Negative for headache, weakness, numbness, tingling, and seizure, Psych: Negative for depression, anxiety, suicide ideation, homicidal ideation, and hallucinations, 13:42 Cardiovascular: Positive for chest pain, palpitations, Exam: 13:42 Constitutional: This is a well developed, well nourished patient who is awake, alert, rt and in no acute distress. Head/Face: Normocephalic, atraumatic. Chest/axilla: Normal chest wall appearance and motion. Nontender with no deformity. No lesions are appreciated. Cardiovascular: Regular rate and rhythm with a normal S1 and S2. No gallops, murmurs, or rubs. Normal PMI, no JVD. No pulse deficits. Respiratory: Lungs have equal breath sounds bilaterally, clear to auscultation and percussion. No rales, rhonchi or wheezes noted. No increased work of breathing, no retractions or nasal flaring. Abdomen/GI: Soft, non-tender, with normal bowel sounds. No distension or tympany. No guarding or rebound. No evidence of tenderness throughout. Skin: Warm, dry with normal turgor. Normal color with no rashes, no lesions, and no evidence of cellulitis. MS/ Extremity: Pulses equal, no cyanosis. Neurovascular intact. Full, normal range of motion. Neuro: Awake and alert, GCS 15, oriented to person, place, time, and situation. Cranial nerves II-XII grossly intact. Motor strength 5/5 in all extremities. Sensory grossly intact. Cerebellar exam normal. Normal gait. Psych: Awake, alert, with orientation to person, place and time. Behavior, mood, and affect are within normal limits. 13:42 ECG was reviewed by the Attending Physician. Vital Signs: 12:44 BP 151 / 81; Pulse 77; Resp 19; Temp 98.8; Pulse Ox 99% on R/A; Weight 74.84 kg; Height iw 5 ft. 9 in. ; Pain 3/10; 12:53 BP 138 / 77; Pulse 65; Resp 16; Pulse Ox 100% ; bp 14:29 BP 141 / 94; Pulse 83; Resp 16; Pulse Ox 100% ; bp 15:38 BP 147 / 80; Pulse 88; Resp 19; Pulse Ox 99% ; bp 12:44 Body Mass Index 24.37 (74.84 kg, 175.26 cm) iw 12:44 Pain Scale: Adult iw MDM: 12:43 Patient medically screened. rt 15:44 Differential Diagnosis ACS, chest wall pain, pleurisy, pulmonary edema, pulmonary rt embolism. Data reviewed: vital signs, nurses notes, lab test result(s), EKG, radiologic studies. Consideration of Admission/Observation Escalation of care including admission/observation considered. Patient with recent admission for chest pain, 2 negative troponins, nonischemic appearing EKG, negative workup. Patient not likely to benefit from admission at this time, comfortable with discharge, return precautions discussed.. I considered the following discharge prescriptions or medication management in the emergency department Medications were administered in the Emergency Department. See MAR. Independent interpretation of the following test(s) in the Emergency Department CT Scan: My interpretation is No pneumonia seen on interpretation of CT scan images. Test considered but Not performed: X-ray: CT scan performed, x-rays redundant. Care significantly affected by the following chronic conditions: Hypertension. Counseling: I had a detailed discussion with the patient and/or guardian regarding the historical points, exam findings, and any diagnostic results supporting the discharge/admit diagnosis, lab results, radiology results, the need for outpatient follow up, to return to the emergency department if symptoms worsen or persist or if there are any questions or concerns that arise at home. Response to treatment: the patient's symptoms have markedly improved after treatment. 08/07 12:51 Order name: Basic Metabolic Panel; Complete Time: 13:39 rt 08/07 12:51 Order name: CBC with Diff; Complete Time: 13:39 rt 08/07 12:51 Order name: LFT's; Complete Time: 13:39 rt 08/07 12:51 Order name: Magnesium; Complete Time: 13:39 rt 08/07 12:51 Order name: Troponin HS; Complete Time: 13:39 rt 08/07 14:33 Order name: Troponin High Sensitivity; Complete Time: 15:11 rt 08/07 12:51 Order name: CT Chest For PE Angio; Complete Time: 14:27 rt 08/07 12:51 Order name: EKG; Complete Time: 12:52 rt 08/07 12:51 Order name: Cardiac monitoring; Complete Time: 12:52 rt 08/07 12:51 Order name: EKG - Nurse/Tech; Complete Time: 12:52 rt 08/07 12:51 Order name: IV Saline Lock; Complete Time: 12:52 rt 08/07 12:51 Order name: Labs collected and sent; Complete Time: 12:52 rt 08/07 12:51 Order name: O2 Per Protocol; Complete Time: 12:52 rt 08/07 12:51 Order name: O2 Sat Monitoring; Complete Time: 12:51 rt EC:42 Rate is 65 beats/min. Rhythm is regular, Normal Sinus Rhythm with No ectopy. QRS [place] rt is Normal. SD interval is normal. QRS interval is normal. QT interval is normal. No Q waves. No ST changes noted. Administered Medications: 14:14 Drug: Ondansetron IVP 4 mg IVP once; over 2 minutes Route: IVP; Site: right antecubital;bp 15:40 Follow up: Response: No adverse reaction bp 14:46 Drug: Acetaminophen PO 1000 mg PO once Route: PO; ph 15:40 Follow up: Response: No adverse reaction bp Disposition Summary: 08/08/23 15:17 Discharge Ordered Notes: Location: Home rt Problem: new rt Symptoms: have improved rt Condition: Stable rt Diagnosis - Chest pain, unspecified rt Followup: rt - With: Private Physician - When: 2 - 3 days - Reason: Discharge Instructions: - Discharge Summary Sheet rt - Nonspecific Chest Pain, Adult rt Forms: - Medication Reconciliation Form rt - Thank You Letter rt - Antibiotic Education rt - Prescription Opioid Use rt - Patient Portal Instructions rt - Leadership Thank You Letter rt Signatures: Dispatcher [employer] Constance Hawkins RN RN Brea Villarreal RN RN ph Peltier, Brian, RN RN bp Ilia Pathak MD MD rt Corrections: (The following items were deleted from the chart) 13:45 13:42 Rate is 63 beats/min. Rhythm is regular, Normal Sinus Rhythm with No ectopy. QRS rt [place] is Normal. SD interval is normal. QRS interval is normal. QT interval is normal. No Q waves. Clinical impression: NSR w/ Non-specific ST/T Changes. rt
--- NOTE | 2023-08-08 15:18 | ER ---
Nurse's Notes [facility] Name: Yamile Daugherty Age: 73 yrs Sex: Female : 1950 Arrival Date: 08/08/2023 Time: 12:25 Bed 7 Private MD: Diagnosis: Chest pain, unspecified Presentation: 08/07 12:44 Chief complaint: Patient states: intermittent chest fluttering and pain to "left lung" iw for a few weeks, was diagnosed with a PE 3 weeks ago and has been on eliquis, +intermittent SOB. Coronavirus screen: At this time, the client does not indicate any symptoms associated with coronavirus-19. Ebola Screen: Patient negative for fever greater than or equal to 101.5 degrees Fahrenheit, and additional compatible Ebola Virus Disease symptoms Patient denies exposure to infectious person. Patient denies travel to an Ebola-affected area in the 21 days before illness onset. No symptoms or risks identified at this time. Initial Sepsis Screen: Does the patient meet any 2 criteria? No. Patient's initial sepsis screen is negative. Does the patient have a suspected source of infection? No. Patient's initial sepsis screen is negative. Risk Assessment: Do you want to hurt yourself or someone else? Patient reports no desire to harm self or others. Onset of symptoms was July 20, 2023. 12:44 Method Of Arrival: Wheelchair iw 12:44 Acuity: ALESIA 3 iw Triage Assessment: 12:54 General: Appears in no apparent distress. comfortable, Behavior is calm, cooperative, bp appropriate for age. Pain: Complains of pain in chest. Cardiovascular: Reports chest pain, palpitations. Historical: - Allergies: 12:46 No Known Allergies; iw - Home Meds: 15:39 amlodipine 10 mg tablet daily [Active]; atorvastatin 20 mg Oral tablet daily [Active]; bp carvedilol 25 mg Oral tablet 2 times per day [Active]; Eliquis 5 mg Oral tablet 1 tab [Active]; hydralazine 10 mg Oral tablet 1 tab 2 times per day [Active]; hydroxyzine HCl 25 mg Oral tablet 1 tab every 8 hours as needed [Active]; irbesartan-hydrochlorothiazide 300-12.5 mg Oral tablet daily [Active]; - PMHx: 12:46 Hypertension; irregular heartbeat; PE; iw - PSHx: 12:46 wrist - left; tibal; iw - Immunization history:: Adult Immunizations not up to date. - Infectious Disease History:: Denies. - Social history:: Smoking status: Patient denies any tobacco usage or history of. - Family history:: not pertinent. Screenin:53 [facility] ED Fall Risk Assessment (Adult) History of falling in the last 3 months, bp including since admission No falls in past 3 months (0 pts). Abuse screen: Denies threats or abuse. Denies injuries from another. Nutritional screening: No deficits noted. Tuberculosis screening: No symptoms or risk factors identified. Assessment: 12:54 General: SEE TRIAGE. bp 14:32 Reassessment: Patient appears in no apparent distress at this time. Patient is alert, bp oriented x 3, equal unlabored respirations, skin warm/dry/pink. Vital Signs: 12:44 BP 151 / 81; Pulse 77; Resp 19; Temp 98.8; Pulse Ox 99% on R/A; Weight 74.84 kg; Height iw 5 ft. 9 in. ; Pain 3/10; 12:53 BP 138 / 77; Pulse 65; Resp 16; Pulse Ox 100% ; bp 14:29 BP 141 / 94; Pulse 83; Resp 16; Pulse Ox 100% ; bp 15:38 BP 147 / 80; Pulse 88; Resp 19; Pulse Ox 99% ; bp 12:44 Body Mass Index 24.37 (74.84 kg, 175.26 cm) iw 12:44 Pain Scale: Adult iw ED Course: 12:30 Patient arrived in ED. ra3 12:32 Daniel Funez, GLENROY is Primary Nurse. bp 12:40 Ilia Pathak MD is Attending Physician. rt 12:45 Triage completed. iw 12:47 Arm band placed on. iw 12:52 Troponin HS Sent. bp 12:52 Magnesium Sent. bp 12:52 LFT's Sent. bp 12:52 CBC with Diff Sent. bp 12:52 Basic Metabolic Panel Sent. bp 12:53 Patient has correct armband on for positive identification. Bed in low position. Call bp light in reach. 12:53 Inserted saline lock: 22 gauge in right antecubital area, using aseptic technique. bp Blood collected. 13:54 CT Chest For PE Angio Sent. bp 14:03 CT Chest For PE Angio In Process Unspecified. EDMS 14:46 Troponin High Sensitivity Sent. ph 15:39 Provided Education on: N/A. bp 15:39 No provider procedures requiring assistance completed. IV discontinued, intact, bp bleeding controlled, No redness/swelling at site. Pressure dressing applied. Administered Medications: 14:14 Drug: Ondansetron IVP 4 mg IVP once; over 2 minutes Route: IVP; Site: right antecubital;bp 15:40 Follow up: Response: No adverse reaction bp 14:46 Drug: Acetaminophen PO 1000 mg PO once Route: PO; ph 15:40 Follow up: Response: No adverse reaction bp Medication: 15:40 VIS not applicable for this client. bp Outcome: 15:17 Discharge ordered by MD. rt 15:39 Discharged to home ambulatory, with family, bp 15:39 Condition: stable 15:39 Discharge instructions given to patient, family, Instructed on discharge instructions, follow up and referral plans. Demonstrated understanding of instructions, follow-up care, 15:40 Patient left the ED. bp Signatures: Dispatcher [employer] EDMS Constance Arauoj RN RN iw Brea Villarreal RN RN Daniel Trejo RN RN bp Ilia Pathak MD MD rt Donna Joseph ra3
[2023-08-08 16:20] VITALS: BP 147/80; TEMP 98.8; O2SAT 99
== END 2023-08-08 15:40 | disposition home or self-care (01) ==
LOC: ER 12:25
DX: R07.9 Chest pain, unspecified (principal); R00.2 Palpitations; I10 Essential (primary) hypertension; Z86.711 Personal history of pulmonary embolism; Z79.01 Long term (current) use of anticoagulants
CPT/HCPCS: 93005; 85025; 80048; 36415; 83735; 80076; 84484 ×2; 71275; 96374; 99284; Q9967; J2405

== ENCOUNTER 2024-02-28 04:58 | Emergency (ER) | payer OTHER ==
--- NOTE | 2024-02-28 05:29 | EDPHYS ---
Physician Documentation [facility] Name: Yamile Daugherty Age: 74 yrs Sex: Female : 1950 Arrival Date: 02/28/2024 Time: 04:58 Bed 4 Private MD: ED Physician Jack Barber HPI: 02/27 05:26 This 74 yrs old Black Female presents to ER via Ambulatory with complaints of Flu ec2 Symptoms, High Blood Pressure, Cough, Congestion. 05:26 Patient arrives today for evaluation of cough and cold symptoms ongoing for 2 weeks. ec2 Patient states she is having drainage, states that she is having occasional cough along with nausea, states that today she started developing some diarrhea symptoms as well. Reports some decreased p.o. intake. Reports history of hypertension and is having elevated blood pressures. Reports that she is experiencing paresthesias in the bilateral upper and lower extremities.. Historical: - Allergies: 05:20 a "pain medication"; bm8 - Home Meds: 05:20 amlodipine 10 mg tablet daily [Active]; atorvastatin 20 mg Oral tablet daily [Active]; bm8 carvedilol 25 mg Oral tablet 2 times per day [Active]; Eliquis 5 mg Oral tablet 1 tab [Active]; hydralazine 10 mg Oral tablet 1 tab 2 times per day [Active]; hydroxyzine HCl 25 mg Oral tablet 1 tab every 8 hours as needed [Active]; irbesartan-hydrochlorothiazide 300-12.5 mg Oral tablet daily [Active]; - PMHx: 05:20 Hypertension; irregular heartbeat; PE; HLD (PE); bm8 - PSHx: 05:20 tibal; wrist - left; bm8 - Immunization history:: Adult Immunizations up to date, Client reports receiving the 2nd dose of the Covid vaccine. - Infectious Disease History:: Denies. - Social history:: Smoking status: Patient denies any tobacco usage or history of. ROS: 05:27 Constitutional: as per hpi ec2 Exam: 05:27 Constitutional: GEN: NAD Head: atraumatic Eyes: EOMI Ears: External ears are normal. ec2 Nose: drainage appreciated. CV: regular rate LUNGS: no respiratory distress, no wheezes or rales or rhonchi. ABD: non-distended SKIN: no evidence of rashes MSK: no evidence of trauma Vital Signs: 05:18 BP 176 / 90; Pulse 71; Resp 18; Temp 98.7; Pulse Ox 100% on R/A; Weight 77.11 kg; bm8 Height 5 ft. 9 in. ; Pain 4/10; 05:18 Body Mass Index 25.10 (77.11 kg, 175.26 cm) bm8 05:18 Pain Scale: Adult bm8 [place]to Coma Score: 05:22 Eye Response: spontaneous(4). Motor Response: obeys commands(6). Verbal Response: bm8 oriented(5). Total: 15. MDM: 05:08 Medical Screening Exam initiated ec2 05:27 Data reviewed: vital signs. ED course: Patient arrives today for 2 weeks of URI signs ec2 and symptoms. Examination remarkable for well-appearing nontoxic individual who is hemodynamically stable with a reassuring cardiopulmonary examination. Given the duration of symptoms along with the drainage, my concern is for bacterial sinusitis. I will start the patient on antibiotics and have the patient follow-up outpatient expectantly. Additionally considered viral infection as well as pneumonia. Chest x-ray independently reviewed and interpreted by me, shows no focal opacity. Will discharge home have the patient follow-up with primary care. Return precautions given.. 02/27 05:08 Order name: CXR XRAY ec2 Administered Medications: 05:44 Not Given (Patient Refused): tessalon [id number] mg PO once bm8 05:44 Drug: predniSONE PO 10 mg PO once Route: PO; bm8 05:59 Follow up: Response: No adverse reaction bm8 05:44 Drug: Amoxicillin-Clavulanate PO 875 mg PO once Route: PO; bm8 05:59 Follow up: Response: No adverse reaction bm8 05:44 Drug: Ondansetron PO 4 mg PO once Route: PO; bm8 05:59 Follow up: Response: No adverse reaction bm8 Disposition Summary: 02/28/24 05:28 Discharge Ordered Notes: Location: Home ec2 Condition: Stable ec2 Diagnosis - Acute maxillary sinusitis ec2 Followup: ec2 - With: Private Physician - When: - Reason: Re-evaluation by your physician Discharge Instructions: - Discharge Summary Sheet ec2 - Sinusitis, Adult, [id number] ec2 Forms: - Medication Reconciliation Form ec2 - Antibiotic Education ec2 - Prescription Opioid Use ec2 - Patient Portal Instructions ec2 - Leadership Thank You Letter ec2 Prescriptions: - Augmentin 875-125 mg Oral Tablet - take 1 tablet ORAL route every 12 hours for 10 days; 20 tablet; Refills: 0, ec2 Product Selection Permitted - Prednisone 20 mg Oral Tablet - take 1 tablet ORAL route once daily for 5 days; 5 tablet; Refills: 0, Product ec2 Selection Permitted Signatures: Dispatcher [employer] EDMD Jack Barber MD MD ec2 Yossi Meza, RN RN bm8 Corrections: (The following items were deleted from the chart) 05:09 05:09 Influenza Screen (A \\T\\ B)+BA.LAB.BRZ ordered. EDMS EDMS 05:09 05:09 SARS-COV-2 Antigen Rapid+I.LAB.BRZ ordered. EDMD EDMS 05:09 05:09 Urinalysis W/Microscopic+U.LAB.BRZ ordered. EDMD EDMS 05:09 05:09 Chest Single View+RAD.RAD.BRZ ordered. EDMD EDMS 05:27 05:26 Patient arrives today for evaluation of cough and cold symptoms ongoing for 2 ec2 weeks. Patient states she is having drainage, states that she is having occasional cough along with nausea, states that today she started developing some diarrhea symptoms as well. Reports some decreased p.o. intake. Reports history of hypertension and is having elevated blood pressures.. ec2 05:27 05:27 Constitutional: GEN: NAD Head: atraumatic Eyes: EOMI Ears: External ears are ec2 normal. Nose: No drainage appreciated. CV: regular rate LUNGS: no respiratory distress, no wheezes or rales or rhonchi. ABD: non-distended SKIN: no evidence of rashes MSK: no evidence of trauma ec2
--- NOTE | 2024-02-28 05:29 | ER ---
Nurse's Notes [facility] Name: Yamile Daugherty Age: 74 yrs Sex: Female : 1950 Arrival Date: 02/28/2024 Time: 04:58 Bed 4 Private MD: Diagnosis: Acute maxillary sinusitis Presentation: 02/27 05:18 Chief complaint: Patient states: cough congestion, nausea, chills and tingling in hands bm8 and feet for two weeks. Coronavirus screen: At this time, the client does not indicate any symptoms associated with coronavirus-19. Ebola Screen: Patient negative for fever greater than or equal to 101.5 degrees Fahrenheit, and additional compatible Ebola Virus Disease symptoms Patient denies exposure to infectious person. Patient denies travel to an Ebola-affected area in the 21 days before illness onset. No symptoms or risks identified at this time. Resp Distress? No respiratory distress is noted at this time. Initial Sepsis Screen: Does the patient meet any 2 criteria? No. Patient's initial sepsis screen is negative. Does the patient have a suspected source of infection? No. Patient's initial sepsis screen is negative. Risk Assessment: Do you want to hurt yourself or someone else? Patient reports no desire to harm self or others. Onset of symptoms was February 14, 2024. 05:18 Method Of Arrival: Ambulatory bm8 05:18 Acuity: ALESIA 4 bm8 Triage Assessment: 05:20 General: Appears in no apparent distress. comfortable, Behavior is calm, cooperative, bm8 appropriate for age. Pain: Complains of pain in body aches Pain currently is 4 out of 10 on a pain scale. Neuro: No deficits noted. Level of Consciousness is awake, alert, obeys commands, Oriented to person, place, time, situation, Appropriate for age. Cardiovascular: Denies chest pain, Heart tones S1 S2 present Capillary refill < 3 seconds in bilateral fingers Patient's skin is warm and dry. Respiratory: No deficits noted. Airway is patent Respiratory effort is even, unlabored, Respiratory pattern is regular, symmetrical, Breath sounds are clear bilaterally. GI: Reports nausea. : No signs and/or symptoms were reported regarding the genitourinary system. Derm: No signs and/or symptoms reported regarding the dermatologic system. Musculoskeletal: No signs and/or symptoms reported regarding the musculoskeletal system. Historical: - Allergies: 05:20 a "pain medication"; bm8 - Home Meds: 05:20 amlodipine 10 mg tablet daily [Active]; atorvastatin 20 mg Oral tablet daily [Active]; bm8 carvedilol 25 mg Oral tablet 2 times per day [Active]; Eliquis 5 mg Oral tablet 1 tab [Active]; hydralazine 10 mg Oral tablet 1 tab 2 times per day [Active]; hydroxyzine HCl 25 mg Oral tablet 1 tab every 8 hours as needed [Active]; irbesartan-hydrochlorothiazide 300-12.5 mg Oral tablet daily [Active]; - PMHx: 05:20 Hypertension; irregular heartbeat; PE; HLD (PE); bm8 - PSHx: 05:20 tibal; wrist - left; bm8 - Immunization history:: Adult Immunizations up to date, Client reports receiving the 2nd dose of the Covid vaccine. - Infectious Disease History:: Denies. - Social history:: Smoking status: Patient denies any tobacco usage or history of. Screenin:22 [facility] ED Fall Risk Assessment (Adult) History of falling in the last 3 months, bm8 including since admission No falls in past 3 months (0 pts) Confusion or Disorientation No (0 pts) Intoxicated or Sedated No (0 pts) Impaired Gait No (0 pts) Mobility Assist Device Used No (0 pt) Altered Elimination No (0 pt) Score/Fall Risk Level 0 - 2 = Low Risk Oriented to surroundings, Maintained a safe environment, Educated pt \\T\\ family on fall prevention, incl call for assistance when getting out of bed, Assessed \\T\\ reinforced patient's understanding of fall precautions, Hourly rounding (assess needs \\T\\ fall precautionary measures) done, Used ambulatory aids as needed (educated on \\T\\ assisted with), Used gait belt as appropriate. Abuse screen: Denies threats or abuse. Nutritional screening: No deficits noted. Tuberculosis screening: No symptoms or risk factors identified. Assessment: :22 Reassessment: see triage assessment. bm8 05:44 Reassessment: Patient appears in no apparent distress at this time. No changes from bm8 previously documented assessment. Patient and/or family updated on plan of care and expected duration. Pain level reassessed. Patient is alert, oriented x 3, equal unlabored respirations, skin warm/dry/pink. Vital Signs: 05:18 BP 176 / 90; Pulse 71; Resp 18; Temp 98.7; Pulse Ox 100% on R/A; Weight 77.11 kg; bm8 Height 5 ft. 9 in. ; Pain 4/10; 05:18 Body Mass Index 25.10 (77.11 kg, 175.26 cm) bm8 05:18 Pain Scale: Adult bm8 [place] Coma Score: 05:22 Eye Response: spontaneous(4). Motor Response: obeys commands(6). Verbal Response: bm8 oriented(5). Total: 15. ED Course: 05:02 Patient arrived in ED. ec2 05:03 Jack Barber MD is Attending Physician. ec2 05:18 Yossi Meza, RN is Primary Nurse. bm8 05:20 Triage completed. bm8 05:20 Arm band placed on right wrist. bm8 05:22 Patient has correct armband on for positive identification. Bed in low position. Call bm8 light in reach. Side rails up X 1. Adult w/ patient. Client placed on continuous cardiac and pulse oximetry monitoring. NIBP monitoring applied. Pulse ox on. NIBP on. Door closed. Noise minimized. Warm blanket given. Pillow given. Verbal reassurance given. Head of bed elevated. 05:22 No provider procedures requiring assistance completed. bm8 05:31 CXR XRAY In Process Unspecified. EDMS 05:44 Provided Education on: post er care. bm8 05:44 Patient did not have IV access during this emergency room visit. bm8 Administered Medications: 05:44 Not Given (Patient Refused): tessalon [id number] mg PO once bm8 05:44 Drug: predniSONE PO 10 mg PO once Route: PO; bm8 05:59 Follow up: Response: No adverse reaction bm8 05:44 Drug: Amoxicillin-Clavulanate PO 875 mg PO once Route: PO; bm8 05:59 Follow up: Response: No adverse reaction bm8 05:44 Drug: Ondansetron PO 4 mg PO once Route: PO; bm8 05:59 Follow up: Response: No adverse reaction bm8 Medication: 05:22 VIS not applicable for this client. bm8 Outcome: 05:28 Discharge ordered by . ec2 05:44 Discharged to home ambulatory, bm8 05:44 Condition: stable 05:44 Discharge instructions given to patient, family, Instructed on discharge instructions, follow up and referral plans. medication usage, safety practices, Demonstrated understanding of instructions, follow-up care, medications, Prescriptions given X 2, 05:58 Patient left the ED. bm8 Signatures: Dispatcher [employer] EDJack Kumar MD MD ec2 Yossi Meza, RN RN bm8
[2024-02-28] MEDS ORDERED: AMOX/K CLAV 875 MG TAB ONE (05:30)
[2024-02-28] MEDS ORDERED: BENZONATATE 100 MG CAP PO ONE (05:30)
[2024-02-28] MEDS ORDERED: ONDANSETRON 4 MG (ODT) TAB ONE (05:30)
[2024-02-28] MEDS ORDERED: predniSONE 10 MG TAB ONE (05:30)
[2024-02-28 06:03] VITALS: BP 176/90; TEMP 98.7; O2SAT 100
--- NOTE | 2024-02-28 07:01 | RAD REPORT ---
CLINICAL HISTORY: Cough. COMPARISON: None. TECHNIQUE: XR CHEST 1 VIEW 02/28/2024 5:08 AM NON PROFIT [employer]CIAL CONTROLLER FINDINGS: Cardiac silhouette is normal in size. There are multiple scattered up to 5 mm calcified granulomas wi thin both lungs. There is no pleural effusion. There is no pneumothorax. There are no acute osseous findings. IMPRESSION: Clear lungs. Electronically signed by: Fransisco Brooke MD 02/28/2024 06:58 AM NON PROFIT FIN[employer]CIAL CONTROLLER RP Due to temporary technical issues with the PACS/Bkam reporting system, reports are being jasen d by the in-house radiologist without review as a courtesy to ensure prompt reporting the interpreting radiologist is fully responsible for the content of the report. Transcribed Date/Time: 02/28/2024 7:02 AM
== END 2024-02-28 05:58 | disposition home or self-care (01) ==
LOC: ER 04:58
DX: J01.00 Acute maxillary sinusitis, unspecified (principal); I10 Essential (primary) hypertension; Z79.01 Long term (current) use of anticoagulants; Z11.52 Encounter for screening for COVID-19
CPT/HCPCS: 71045; J7512; Q0162; 99284

== ENCOUNTER 2024-08-19 10:32 | Emergency (ER) | payer OTHER ==
[2024-08-19 11:16] LABS: PT Prothrombin Time 12.8 SECONDS (10-13.0); Protime INR 1.13
[2024-08-19 11:18] LABS: Absolute Basophils 0.1 K/uL (0-0.5); Absolute Eosinophils 0.1 K/uL (0-0.5); Absolute Monocytes 0.4 K/uL (0.1-1.3); Basophils % 1.3 % (0-1.3); Eosinophils % 2.5 % (0-4.4); Hematocrit 37.2 % (36.0-45.0); Hemoglobin 12.6 g/dL (12.0-15.0); Lymphocytes % 43.4 % (15.3-44.8); MCH 30.9 pg (27.0-35.0); MCHC 33.8 g/dL (32.0-36.0); MCV 91.5 fL (80-100); MPV 8.1 fL (7.6-11.3); Monocytes % 8.3 % (3.3-12.3); Neutrophils % 44.5 % (41.7-73.7); Nucleated Red Blood Cells % 0.1 % (0-0); Platelets 251 thou/uL (152-406); RBC Red Blood Cell Count 4.07 M/uL (3.86-4.86); Red Cell Distribution Width 13.7 % (12.1-15.2)
[2024-08-19 11:23] LABS: D-Dimer < 0.215 FEUug/mL (0-0.500)
--- NOTE | 2024-08-19 11:23 | RAD REPORT ---
EXAM: Chest Single View HISTORY: 74 years Female CHEST PAIN COMPARISON: 02/28/2024 FINDINGS: LUNGS/PLEURA: The lungs are clear. No pleural effusions or pneumothorax. No pulmonary edema. CARDIAC/MEDIASTINUM: The cardiac silhouette is within normal limits. UPPER ABDOMEN: No significant abnormality. BONES: No acute abnormality. LINES/TUBES/OTHER: N/A IMPRESSION: No evidence of acute cardiopulmonary disease. No significant change from prior.
[2024-08-19 11:30] LABS: Albumin 3.9 g/dL (3.4-5.0); Albumin/Globulin Ratio 0.9 (1.1-1.8); Anion Gap 9.4 mEq/L (5.0-15.0); Bilirubin Direct 0.2 mg/dL (0-0.2); Bilirubin Indirect, Calculated 0.4 mg/dL (0.2-0.8); Bilirubin Total 0.6 mg/dL (0.2-1.0); Globulin 4.3 g/dL (2.3-3.5); Magnesium 1.7 mg/dL (1.6-2.4); Potassium 3.4 mEq/L (3.5-5.1); Protein, Total 8.2 g/dL (6.4-8.2)
--- NOTE | 2024-08-19 16:04 | RAD REPORT ---
EXAMINATION: CTA CHEST PE CLINICAL INDICATION: Female, 74 years old. DYSPNEA TECHNIQUE: This examination was performed according to an angiographic protocol with 3D post-processi ng. This involves 3D reconstructions, MIPs, volume rendered images and/or shaded surface rendering. One or more of the following dose reduction techniques were used: Automated exposure control, adjustm ent of the mA and/or kV according to patient size, and/or iterative reconstruction. Unless otherwise specified, incidental findings do not require dedicated imaging follow-up. [id number]. COMPARISON: 08/08/2023 FINDINGS: LOWER NECK: Visualized thyroid gland and soft tissues are normal. MEDIASTINUM AND LYMPH NODES: No mediastinal mass or fluid collection. Normal size mediastinal, hilar, and axillary lymph nodes. THORACIC AORTA: No thoracic aortic aneurysm. PULMONARY ARTERIES: Caliber is within normal limits. HEART: Normal heart size. No coronary calcifications.No significant pericardial effusion. LUNGS AND AIRWAYS: Airways are clear. No evidence of airspace or interstitial process.No suspicious a nd/or stable pulmonary nodules. Bilateral calcified pulmonary nodules. PLEURA: No pleural effusions. No pneumothorax. OSSEOUS STRUCTURES AND CHEST WALL: No fracture or suspicious osseous lesions. UPPER ABDOMEN: No acute abnormalities. IMPRESSION: Negative for pulmonary embolism. No other acute process identified in the chest.
--- NOTE | 2024-08-19 16:07 | EDPHYS ---
Physician Documentation [facility] Name: Yamile Daugherty Age: 74 yrs Sex: Female : 1950 Arrival Date: 08/19/2024 Time: 10:32 Bed 5 Private MD: ED Physician Nancy Wolf HPI: 08/19 10:56 This 74 yrs old Black Female presents to ER via Ambulatory with complaints of Chest gb1 Pain, Shortness Of Breath, Cough, Back Pain. 10:56 74-year-old -[place] female very pleasant with history of irregular heartbeat gb1 but not atrial fibrillation, hypertension and history of bilateral PEs. Patient comes with right back pain and left back pain and then more shortness of breath. She was diagnosed with bronchitis 2 weeks ago and finished a round of amoxicillin. Patient denies any fevers but says that she just has overall body aches and she is not been sleeping well. She denies any sharp chest pain but just overall feels unwell.. Historical: - Allergies: 11:03 unknown pain medication; aa5 - PMHx: 10:46 Hypertension; irregular heartbeat; PE; aa5 11:03 Kidney stone; aa5 - PSHx: 10:46 wrist - left; aa5 - Immunization history:: Adult Immunizations unknown. - Infectious Disease History:: Denies. - Social history:: Smoking status: Patient denies any tobacco usage or history of. Exam: 11:04 Constitutional: This is a well developed, well nourished patient who is awake, alert, gb1 and in no acute distress. Head/Face: Normocephalic, atraumatic. Eyes: Pupils equal round and reactive to light, extra-ocular motions intact. Lids and lashes normal. Conjunctiva and sclera are non-icteric and not injected. Cornea within normal limits. Periorbital areas with no swelling, redness, or edema. ENT: Nares patent. No nasal discharge, no septal abnormalities noted. Tympanic membranes are normal and external auditory canals are clear. Oropharynx with no redness, swelling, or masses, exudates, or evidence of obstruction, uvula midline. Mucous membranes moist. Neck: Trachea midline, no thyromegaly or masses palpated, and no cervical lymphadenopathy. Supple, full range of motion without nuchal rigidity, or vertebral point tenderness. No Meningismus. Chest/axilla: Normal chest wall appearance and motion. Nontender with no deformity. No lesions are appreciated. Cardiovascular: Regular rate and rhythm with a normal S1 and S2. No gallops, murmurs, or rubs. Normal PMI, no JVD. No pulse deficits. Respiratory: Lungs have equal breath sounds bilaterally, clear to auscultation and percussion. No rales, rhonchi or wheezes noted. No increased work of breathing, no retractions or nasal flaring. Abdomen/GI: Soft, non-tender, with normal bowel sounds. No distension or tympany. No guarding or rebound. No evidence of tenderness throughout. Back: No spinal tenderness. No costovertebral tenderness. Full range of motion. Skin: Warm, dry with normal turgor. Normal color with no rashes, no lesions, and no evidence of cellulitis. MS/ Extremity: Pulses equal, no cyanosis. Neurovascular intact. Full, normal range of motion. Vital Signs: 10:47 BP 161 / 87; Pulse 62; Resp 16; Temp 97.5; Pulse Ox 98% ; bp 13:42 BP 150 / 75; Pulse 65; Resp 16; Pulse Ox 100% ; bp 15:15 BP 163 / 80; Pulse 58; Resp 16; Pulse Ox 100% ; bp 16:24 BP 148 / 82; Pulse 56; Resp 16; Pulse Ox 100% ; bp Procedures: 11:04 Performed EKG completed at 1056 with normal sinus rhythm at a rate of 60 bpm normal gb1 intervals and axes flattened T waves in V3 and 1 and aVL. No reciprocal changes noted. There is LVH on this EKG as well.. MDM: 10:46 Medical Screening Exam initiated gb1 11:04 Data reviewed: vital signs, nurses notes. gb1 16:24 ED course: I reviewed the patient's CTA chest there is no PE. There is no focal gb1 pneumonia that is found on any imaging today. Her EKG is without any acute findings today and otherwise she is vitally stable. I will discharge her home with routine outpatient follow-up with her established primary care physician of record. I suspect that she has URI that is viral. At this time there is no anginal equivalent, . 08/19 10:38 Order name: Basic Metabolic Panel; Complete Time: 11:41 gb1 08/19 11:41 Interpretation: Abnormal. gb1 08/19 10:38 Order name: CBC with Diff; Complete Time: 11:41 gb1 08/19 10:38 Order name: LFT's; Complete Time: 11:41 gb1 08/19 12:25 Interpretation: Abnormal. gb1 08/19 10:38 Order name: Magnesium; Complete Time: 11:41 gb1 08/19 10:38 Order name: NT PRO-BNP; Complete Time: 11:41 gb1 08/19 10:38 Order name: PT-INR; Complete Time: 11:41 gb1 08/19 10:38 Order name: Troponin HS; Complete Time: 11:41 gb1 08/19 11:06 Order name: D-Dimer; Complete Time: 11:41 [facility] 08/19 10:38 Order name: XRAY Chest (1 view); Complete Time: 11:41 gb1 08/19 11:58 Order name: CT Chest For PE Angio; Complete Time: 16:12 [facility] 08/19 10:38 Order name: EKG; Complete Time: 10:39 gb1 08/19 10:38 Order name: Cardiac monitoring; Complete Time: 10:56 gb1 08/19 10:38 Order name: EKG - Nurse/Tech; Complete Time: 11:03 gb1 08/19 10:38 Order name: IV Saline Lock; Complete Time: 11:03 gb1 08/19 10:38 Order name: Labs collected and sent; Complete Time: 11:03 gb1 08/19 10:38 Order name: O2 Per Protocol; Complete Time: 10:56 gb1 08/19 10:38 Order name: O2 Sat Monitoring; Complete Time: 10:56 gb1 Administered Medications: No medications were administered Disposition Summary: 08/19/24 16:06 Discharge Ordered Notes: Location: Home gb1 Problem: new gb1 Symptoms: have improved gb1 Condition: Stable gb1 Diagnosis - Chest pain on breathing gb1 Followup: gb1 - With: Private Physician - When: - Reason: Recheck today's complaints Discharge Instructions: - Discharge Summary Sheet gb1 - Nonspecific Chest Pain, Adult gb1 Forms: - Medication Reconciliation Form gb1 - Antibiotic Education gb1 - Prescription Opioid Use gb1 - Patient Portal Instructions gb1 - Leadership Thank You Letter gb1 Signatures: Dispatcher [employer] EDAlexandra Albright, RN RN aa5 Daniel Funez, RN RN bp MaryannNancy MD MD gb1 Corrections: (The following items were deleted from the chart) 10:46 PMHx: HLD (PE); 1046 10:46 PSHx: tibal; aa 11:07 10:55 D-DIMER+COAG.LAB.BRZ ordered. EDMS EDMS
--- NOTE | 2024-08-19 16:07 | ER ---
Nurse's Notes [facility] Name: Yamile Daugherty Age: 74 yrs Sex: Female : 1950 Arrival Date: 08/19/2024 Time: 10:32 Bed 5 Private MD: Diagnosis: Chest pain on breathing Presentation: 08/19 10:47 Chief complaint: Patient states: CHEST PAIN AND SOB WITH COUGH. Coronavirus screen: bp cough unrelated to allergies, shortness of breath. Ebola Screen: No symptoms or risks identified at this time. Initial Sepsis Screen: Does the patient meet any 2 criteria? No. Patient's initial sepsis screen is negative. Does the patient have a suspected source of infection? No. Patient's initial sepsis screen is negative. Risk Assessment: Do you want to hurt yourself or someone else? Patient reports no desire to harm self or others. Onset of symptoms is unknown. 10:47 Method Of Arrival: Ambulatory bp 10:47 Acuity: ALESIA 3 bp Triage Assessment: 10:47 General: Appears in no apparent distress. Behavior is calm, cooperative, appropriate bp for age. Pain: Complains of pain in chest. EENT: No deficits noted. Neuro: No deficits noted. Cardiovascular: Reports chest pain. Respiratory: Reports shortness of breath. GI: No signs and/or symptoms were reported involving the gastrointestinal system. : No deficits noted. Derm: No deficits noted. Musculoskeletal: No deficits noted. Historical: - Allergies: 11:03 unknown pain medication; aa5 - PMHx: 10:46 Hypertension; irregular heartbeat; PE; aa5 11:03 Kidney stone; aa5 - PSHx: 10:46 wrist - left; aa5 - Immunization history:: Adult Immunizations unknown. - Infectious Disease History:: Denies. - Social history:: Smoking status: Patient denies any tobacco usage or history of. Screenin:49 [facility] ED Fall Risk Assessment (Adult) History of falling in the last 3 months, bp including since admission No falls in past 3 months (0 pts) Confusion or Disorientation No (0 pts) Intoxicated or Sedated No (0 pts) Impaired Gait No (0 pts) Mobility Assist Device Used No (0 pt) Altered Elimination No (0 pt) Score/Fall Risk Level 0 - 2 = Low Risk Oriented to surroundings. Abuse screen: Denies threats or abuse. Denies injuries from another. Nutritional screening: No deficits noted. Tuberculosis screening: No symptoms or risk factors identified. Assessment: 10:47 General: Appears uncomfortable, Behavior is calm, cooperative, Reports feeling ill for aa5 2-3 days. Pain: Complains of pain in whole body aching, chest pain intermittently. Neuro: Level of Consciousness is awake, alert, obeys commands, Oriented to person, place, time, situation. Cardiovascular: Heart tones S1 S2 present Rhythm is regular. Respiratory: Airway is patent Respiratory effort is even, unlabored, Respiratory pattern is regular, symmetrical. GI: Abdomen is non-distended, Bowel sounds present X 4 quads. Abd is soft and non tender X 4 quads. Reports nausea, Patient currently denies vomiting. : No signs and/or symptoms were reported regarding the genitourinary system. EENT: No signs and/or symptoms were reported regarding the EENT system. Derm: Skin is dry, Skin is normal, Skin temperature is warm. Musculoskeletal: Range of motion: intact in all extremities. 10:49 General: Appears in no apparent distress. Behavior is calm, cooperative, appropriate bp for age. 13:42 Reassessment: Patient appears in no apparent distress at this time. Patient is alert, bp oriented x 3, equal unlabored respirations, skin warm/dry/pink. 15:16 Reassessment: Patient appears in no apparent distress at this time. Patient is alert, bp oriented x 3, equal unlabored respirations, skin warm/dry/pink. Vital Signs: 10:47 BP 161 / 87; Pulse 62; Resp 16; Temp 97.5; Pulse Ox 98% ; bp 13:42 BP 150 / 75; Pulse 65; Resp 16; Pulse Ox 100% ; bp 15:15 BP 163 / 80; Pulse 58; Resp 16; Pulse Ox 100% ; bp 16:24 BP 148 / 82; Pulse 56; Resp 16; Pulse Ox 100% ; bp ED Course: 10:35 Patient arrived in ED. mr 10:36 Nancy Wolf MD is Attending Physician. gb1 10:46 Alexandra Sepulveda, RN is Primary Nurse. aa5 10:47 Arm band placed on. bp 10:49 Triage completed. bp 10:49 Patient has correct armband on for positive identification. Client placed on continuous bp cardiac and pulse oximetry monitoring. NIBP monitoring applied. traffic monitor specialist on. Pulse ox on. NIBP on. 10:49 Patient maintains SpO2 saturation greater than 95% on room air. bp 10:55 Initial lab(s) drawn, by me, sent to lab. Inserted saline lock: 20 gauge in right aa5 antecubital area, using aseptic technique. Blood collected. Flushed with 10 mL NS. 11:16 XRAY Chest (1 view) In Process Unspecified. EDMS 12:17 CT Chest For PE Angio In Process Unspecified. EDMS 16:24 No provider procedures requiring assistance completed. IV discontinued, intact, bp bleeding controlled, No redness/swelling at site. Pressure dressing applied. Administered Medications: No medications were administered Medication: 10:49 VIS not applicable for this client. bp Outcome: 16:06 Discharge ordered by . [email or web address] 16:24 Discharged to home ambulatory, with family, bp 16:24 Condition: stable 16:24 Discharge instructions given to patient, family, Instructed on discharge instructions, follow up and referral plans. Demonstrated understanding of instructions, follow-up care, 16:25 Patient left the ED. bp Signatures: Dispatcher [employer] EDMN LynnAnabella ivy, Reg Reg mr SepulvedaAlexandra, RN RN aa5 Daniel Funez, RN RN bp Maryann, MD ROLAND Cruz gb1 Corrections: (The following items were deleted from the chart) 10:46 10:46 PMHx: HLD (PE); aa5 aa5 10:46 10:46 PSHx: tibal; aa5 aa5
[2024-08-19 16:49] VITALS: TEMP 97.5
[2024-08-19 16:51] VITALS: O2SAT 100
[2024-08-19 16:53] VITALS: BP 148/82
--- NOTE | 2024-08-22 12:12 | EKG ---
Test Date: 2024-08-19 Test Time: 10:56:45 Harness Preparer: ZOHAIB MEASUREMENT RESULTS: Intervals: Rate: 60 OR: 144 QRSD: 84 QT: 410 QTc: 410 [place]: P: 60 OR: 144 QRS: 79 T: 47 INTERPRETIVE STATEMENTS: Normal sinus rhythm Minimal voltage criteria for LVH, may be normal variant Borderline ECG Compared to ECG 11/15/2023 09:56:27 Left ventricular hypertrophy now present T-wave abnormality no longer present Electronically Signed On 08-22-24 12:08:16 CDT by Fer Vazquez
== END 2024-08-19 16:25 | disposition home or self-care (01) ==
LOC: ER 10:32
DX: R07.1 Chest pain on breathing (principal); I10 Essential (primary) hypertension; Z86.711 Personal history of pulmonary embolism
CPT/HCPCS: 85025; 80048; 36415; 83735; 85610; 85379; 80076; 84484; 83880; 71275; 71045; 99284; Q9967; 93005